=== PATIENT | male | born 1940 | race Caucasian/White ===

== ENCOUNTER 2020-03-22 12:10 | Inpatient (IN) | payer MEDICARE, SELFPAY ==
[2020-03-22] VITALS (11 sets, daily range): BP systolic 106–135; BP diastolic 55–68; PULSE 74–88; RESP 18–23; TEMP 36.4–37.4; O2SAT 96–100; BMI 33.4
--- NOTE | ~2020-03-22 | US_ITS ---
EXAMINATION: US venous doppler [facility] DATE: 03/22/2020 12:59 INDICATION: Lower limb pain. TECHNIQUE: Grayscale ultrasound images without and with compression and Doppler ultrasound images of the bilateral lower extremity veins were obtained. COMPARISON: Ultrasound 10/01/2011 FINDINGS: The visualized portions of right common femoral vein, profunda (deep) femoral vein, femoral vein, pop liteal vein, peroneal veins, posterior tibial veins, and greater saphenous vein outflow are patent. The visualized portions of left common femoral vein, profunda femoral vein, femoral vein, popliteal v ein, peroneal veins, posterior tibial veins, and greater saphenous vein outflow are patent. IMPRESSION: 1. No deep venous thrombosis. Reviewed, dictated and finalized at location A.
--- NOTE | ~2020-03-22 | XR_ITS ---
EXAMINATION: XR chest 1V DATE: 03/22/2020 12:59 INDICATION: Cough. TECHNIQUE: A single frontal view of the chest was obtained. COMPARISON: Chest 2 views 03/23/2019, chest CT 09/2017 FINDINGS: There is chronic elevation of right hemidiaphragm. No pneumonia, pleural effusion, or pneum othorax. The heart size is normal. There are changes of aortic valve replacement. IMPRESSION: 1. Chronic elevation of right hemidiaphragm. Reviewed, dictated and finalized at location A.
--- NOTE | 2020-03-22 12:15 | PC.NURSE ---
Pt given urinal and asked for urine sample, patient states that he is unable to give sample at this time.
--- NOTE | 2020-03-22 12:23 | ECG_ITS ---
Measurements Intervals [place] Rate: 84 P: 47 [place]: 166 QRS: -52 QRSD: 146 T: 13 QT: 429 QTc: 509 Interpretive Statements SINUS RHYTHM ATRIAL COUPLET AND ATRIAL PREMATURE COMPLEX RIGHT BUNDLE BRANCH BLOCK LEFT ANTERIOR FASCICULAR BLOCK BASELINE ARTIFACT- I, II, III, AVR, AVL, AVF, V1 ABNORMAL ECG Electronically Signed On 03-22-2020 13:47:24 CDT by Deny Cabezas D.O.
--- NOTE | 2020-03-22 12:24 | ED.WEAKNESS ---
HPI - Weakness General Chief complaint: Weakness Stated complaint: WEAKNESS Source: RN notes reviewed History of Present Illness HPI Narrative: Patient presents emergency department from home via EMS for weakness. Patient states that last night he was having difficulty getting up out of bed. Had that family come over and help and states that today he was unable to get out of his left ear on his own. Patient states he has a history of peripheral neuropathy with numbness from the knees down bilaterally. He states he has been having increased swelling and open wounds of the bilateral legs that have been being dressed by his home health nurse. He denies any fevers or chills chest pain shortness of breath abdominal pain nausea vomiting or any other symptoms Related Data Home Medications Medication Instructions Recorded Confirmed atorvastatin 10 mg PO DAILY 03/22/20 03/22/20 dexamethasone 2 mg PO DAILY 03/22/20 03/22/20 furosemide 60 mg PO DAILY 03/22/20 03/22/20 glimepiride 2 mg PO DAILY 03/22/20 03/22/20 hydrocodone-acetaminophen [[place]] 1 tablet PO Q6H PRN 03/22/20 03/22/20 metformin 1,000 mg PO BID 03/22/20 03/22/20 metoprolol succinate 50 mg PO QAM 03/22/20 03/22/20 mirabegron [Myrbetriq] 25 mg PO DAILY 03/22/20 03/22/20 potassium chloride 20 meq PO DAILY 03/22/20 03/22/20 tamsulosin 0.4 mg PO HS 03/22/20 03/22/20 telmisartan 80 mg PO DAILY 03/22/20 03/22/20 Allergies Allergy/AdvReac Type Severity Reaction Status Date / Time No Known Allergies Allergy Verified 03/22/20 12:21 Review of Systems Review of Systems: Narrative: Gen.: Denies fevers or chills Eyes: Denies eye pain or visual change ENT: Denies congestion Respiratory: Denies shortness of breath or cough CV: Denies chest pain or palpitations GI: Denies abdominal pain nausea, emesis or diarrhea Musculoskeletal: Denies back pain or muscle pain Neuro: Reports weakness Skin: Reports wounds on legs Except as documented, all other systems reviewed and negative PMF Past Medical History Medical History (Updated 03/22/20 @ 15:51 by Josep Rowan DO) Aortic stenosis Status post bioprosthetic aortic valve replacement. Basal cell carcinoma Excision of basal cell carcinoma from the left ala. Benign prostatic hyperplasia Chronic anemia Depression Dyslipidemia Essential hypertension Osteoarthritis Paroxysmal atrial fibrillation Peripheral neuropathy Transient ischemic attack Transverse myelitis (~01/2019) Type 2 diabetes mellitus Hemoglobin A1c was 9.3% in March 2019. Surgical History Surgical History (Updated 03/22/20 @ 15:11 by Jenny Mandujano PA-C) History of aortic valve replacement with tissue graft (~08/2017) History of appendectomy History of arthroplasty of left knee (~2010) History of cataract extraction (~2014) History of inguinal hernia repair History of lumbar fusion (~2017) History of transurethral resection of prostate (~10/2018) Status post lumbar spine surgery for decompression of spinal cord (~2014) Status post surgical removal of malignant neoplasm of skin (~03/2018) Excision of basal cell carcinoma from the left ala. Family History Family History (Updated 03/22/20 @ 15:12 by Jenny Mandujano PA-C) Sibling Diabetes mellitus Hypertension Mother Congestive heart failure COPD (chronic obstructive pulmonary disease) Social History Social History (Updated 03/22/20 @ 15:13 by Jenny Mandujano PA-C) Social History: The patient lives in [place]. He is a lifelong nonsmoker and denies alcohol and drug use. Surrogate decision maker: Code status: Alcohol intake: never Substance use: never Substance use type: does not use Spiritual care concerns: No Exam Narrative: Exam Narrative: APPEARANCE: No acute distress, nontoxic, resting in bed EYES: EOMI HEENT: Normocephalic, atraumatic, OMM RESPIRATORY: No respiratory distress Clear to auscultation bilaterally with no rhonchi wheezing or rales.
[2020-03-22 12:55] LABS: Basophils Percent Auto 0.2 % (0.2-1.2); Eosinophils Absolute Auto 0.1 K/mm3 (0-0.3); Eosinophils Percent Auto 0.9 % (0-4.4); Hematocrit 36.1 % (42.0-52.0); Hemoglobin 12.1 g/dL (14.0-18.0); Immature Granulocyte Absolute 0.05 K/mm3 (0.00-0.031); Immature Granulocyte Percent A 0.4 % (0-0.5); Lymphocytes Absolute Auto 1.27 K/mm3 (0.9-3.2); Lymphocytes Percent Auto 11.3 % (18.3-44.2); Mean Corpuscular HGB Conc 33.5 g/dl (32-36); Mean Corpuscular Hemoglobin 32.3 pg (26-34); Mean Corpuscular Volume 96.3 fl (80-100); Mean Platelet Volume 10.4 fl (7.4-10.4); Monocytes Absolute Auto 0.8 K/mm3 (0.1-0.6); Monocytes Percent Auto 6.9 % (2.6-8.5); Neutrophils Percent Auto 80.3 % (45.5-73.1); Platelet Count Result 252 k/mm3 (150-375); Red Blood Count 3.75 M/mm3 (4.6-6.20); White Blood Count 11.2 K/mm3 (4.5-10.0)
[2020-03-22 13:06] LABS: Blood Urea Nitrogen 20 mg/dL (9-20); Calcium 9.1 mg/dL (8.4-10.2); Carbon Dioxide 29 mmol/L (22-30); Chloride 102 mmol/L (98-107); Estimated CRCL calculation 74 ml/min; Estimated Glomerular Filt Rate > 60; Glucose 82 mg/dL (75-110); INR 1.1; Lactic Acid Reflex 2.1 mmol/L (0.7-2.1); Partial Thromboplastin Time 33.9 SECONDS (22.3-36.8); Potassium 3.5 mmol/L (3.4-5.0); Prothrombin Time 13.7 Seconds (11.1-14.7); Sodium 137 mmol/L (137-145)
[2020-03-22 13:21] LABS: NT Pro B Type Natriuretic Pept 2220 PG/ML (5-100)
[2020-03-22] MEDS: ASPIRIN 81 MG CHEWABLE TABLET 324 MG PO (13:57)
--- NOTE | 2020-03-22 13:58 | PC.NURSE ---
This RN asked patient for urine sample again, he states You just want me to put my penis in this and pee. This RN explained to patient again on how to use urinal and need for urine sample. Pt states Well I have clothes on and I just can't do it. This RN helped patient remove pants with help of SHAYNA Benito. Patient was wearing two depends, underwear and shorts. Depends were so saturdated, urine was running out of it and was breaking down. This RN asked patient when was the last time he had changed his depends. Pt states that it was yesterday sometime. This RN educated patient and his son on the importance of proper hygiene and frequent changing of depends. Pt's son states well he was weak yesterday and couldn't change himself like normal. This RN educated on the need for support of caregivers and how to frequently change depend and the risk of infection and skin breakdown from sitting in urine and feces for long periods of time. This RN cleaned patient up of all urine, and complete bed linen was changed and a new brief was applied. Urine sample was obtained while changing patient, he was able to urinate in collection cup.
[2020-03-22 14:08] LABS: Add Urine Microscopic? YES; Appearance Urine Cloudy (Clear); Bacteria Urine 4+ /hpf; Bilirubin Urine Negative (Negative); Blood Urine 1+ (Negative); Color Urine Yellow (Yellow); Glucose Urine UA Negative (Negative); Ketones Urine Negative (Negative); Leukocyte Esterase Ur 3+ LEU/UL (Negative); Mucus Urine Rare /lpf; Nitrate Urine Negative (Negative); Protein Urine 1+ mg/dL (Negative); Specific Grav Ur 1.012 (1.001-1.035); Squamous Epithelial Cell Urine Moderate /hpf (Few); Urobilinogen Urine Negative mg/dL (<2.0); WBC Urine >75 /hpf
--- NOTE | 2020-03-22 15:04 | PC.NURSE ---
Patient brief changed again and cleaned of urine at this time prior to patient leaving for IMU
[2020-03-22 15:42] LABS: Hemoglobin A1C 5.6 % (<5.7)
[2020-03-22 15:46] LABS: Alanine Aminotransferase 16 U/L (4-50); Albumin Level 3.6 g/dL (3.5-5.1); Alkaline Phosphatase 91 U/L (38-126); Aspartate Amino Transferase 17 U/L (17-59); Bilirubin,Total 1.4 mg/dL (0.2-1.3)
--- NOTE | 2020-03-22 15:46 | PCPTNOTE ---
Attempted to see pt this afternoon for PT evaluation. Nurse admitting pt and echo waiting. Will try again tomorrow.
[2020-03-22] MEDS: SODIUM CHLORIDE 0.9% IV 1,000 ML 100 ML IV CONT (15:50)
[2020-03-22 15:53] LABS: Reflex Lactic Acid Yes or No Add Lactic
[2020-03-22 16:06] LABS: Troponin I 0.042 ng/mL (0.000-0.034)
[2020-03-22 16:24] LABS: Lactic Acid 1.4 mmol/L (0.7-2.1)
[2020-03-22 16:54] LABS: Glucose Point of Care 51 (65-105)
[2020-03-22] MEDS: DEXTROSE 50% 25 GM/50 ML SYRINGE IV PUSH (16:59)
[2020-03-22 17:24] LABS: Glucose Point of Care 140 (65-105)
[2020-03-22 19:22] LABS: Troponin I 0.038 ng/mL (0.000-0.034)
--- NOTE | 2020-03-22 20:00 | PM.IMHP ---
H&P: HPI History of Present Illness Chief complaint: Generalized weakness. Narrative: Francisco J Sanchez is a 79-year-old male with diabetes, hypertension, hyperlipidemia, benign prostatic hyperplasia with history of urinary retention, paroxysmal atrial fibrillation, diabetes, aortic stenosis status post bioprosthetic aortic valve replacement, transverse myelitis, and peripheral neuropathy who presented to the emergency department earlier this morning via EMS from home for evaluation of generalized weakness. He has had an indwelling Fernandez catheter for approximately 6 months time, and that was removed at Dr. Paz' office yesterday. Upon returning home, it sounds as though he went to bed and he was unable to get himself up thereafter. It sounds as though his mobility has not been great for quite some time and he believes that is due in part to his history of transverse myelitis diagnosed in January 2019. He is treated by a local neurologist, and is on long-term, low-dose dexamethasone daily for that. Approximately 3 weeks ago he was ambulating minimally around the home with a walker, however he now has a Hoveround and it sounds as though he has been using that exclusively and only transfers from that to the toilet or to the bed. He does lift weights with his upper body, however his legs have become so weak and due to neuropathy he just cannot get around much anymore. He has had progressive lower extremity edema as well and now has some wounds to the legs for which a home health nurse has been coming to address. At the time my evaluation, he mentions attempting to urinate since last night and is frustrated that he is only dribbling a small amount. A bladder scan shows that he was retaining at least 450 cc of urine and a Fernandez catheter is now to be placed. He also complains of constipation which is an ongoing issue, and he has to take laxatives daily in order to have a bowel movement. His appetite has been good and he denies nausea and vomiting. He has not had fever, chills, or sweats. No cold or flu symptoms. He denies chest pain and pleuritic pain. He admits that he does not sleep well and naps frequently throughout the day, and says he when be surprised if he had sleep apnea as he does snore. He denies, however, orthopnea and PND. He has no history of venous thromboembolism. Review of Systems Review of Systems: Narrative: Twelve systems were reviewed and are unremarkable except as noted in the HPI. [facility] Past Medical History Medical History (Updated 03/22/20 @ 23:16 by Jenny Mandujano PA-C) Aortic stenosis Status post bioprosthetic aortic valve replacement. Basal cell carcinoma Excision of basal cell carcinoma from the left ala. Benign prostatic hyperplasia Chronic anemia Depression Dyslipidemia Essential hypertension Osteoarthritis Paroxysmal atrial fibrillation Peripheral neuropathy Transient ischemic attack Transverse myelitis (~01/2019) Type 2 diabetes mellitus Hemoglobin A1c was 9.3% in March 2019 and is 5.6% today, 03/22/2020. Urinary retention Followed by Dr. Paz. Surgical History Surgical History (Updated 03/22/20 @ 15:11 by Jenny Mandujano PA-C) History of aortic valve replacement with tissue graft (~08/2017) History of appendectomy History of arthroplasty of left knee (~2010) History of cataract extraction (~2014) History of inguinal hernia repair History of lumbar fusion (~2017) History of transurethral resection of prostate (~10/2018) Status post lumbar spine surgery for decompression of spinal cord (~2014) Status post surgical removal of malignant neoplasm of skin (~03/2018) Excision of basal cell carcinoma from the left ala. Family History Family History (Updated 03/22/20 @ 15:12 by Jenny Mandujano PA-C) Sibling Diabetes mellitus Hypertension Mother Congestive heart failure COPD (chronic obstructive pulmonary disease) Social History Social History (Updated 03/22/20 @ 23:07 by Jenny Ott
[2020-03-22 20:32] LABS: Glucose Point of Care 87 (65-105)
[2020-03-22] MEDS: TAMSULOSIN HCL 0.4 MG CAPSULE PO (23:20)
[2020-03-22] MEDS: MELATONIN 5 MG TABLET 10 MG PO (23:20)
--- NOTE | 2020-03-22 23:56 | PCRCNOTE ---
Unable to put patient on apnea link tonight (03/22) due to patient agitation per RN. Test to be attempted tomorrow night (03/23)
[2020-03-23] VITALS (15 sets, daily range): BP systolic 96–132; BP diastolic 51–73; PULSE 72–119; RESP 16–22; TEMP 36.1–37.3; O2SAT 96–100
--- NOTE | 2020-03-23 | ECHO_ITS ---
Patient Info Name: Francisco J Sanchez Age: 79 years : 1940 Gender: Male Ht: 72 in Wt: 270 lbs BSA: 2.54 m2 HR: 86 bpm BP: 125 / 66 mmHg Heart Rhythm: Sinus Rhythm Technical Quality: Good Exam Date: 03/23/2020 9:58 AM Exam Location: [facility] Pulmonary Exam Room: 204 Patient Status: Inpatient Admit Date: 03/22/2020 Staff Ordering Physician: Jenny Mandujano PA-C Software Client Architect: Jessenia Aguilar RDCS Attending Provider: Benny Michel MD Referring Physician: Delbert ANDERSON; Exam Type: CA echo doppler color flow Study Info Indications - HXO S/P AVR AFIB TIA Complete two-dimensional, color flow and Doppler transthoracic echocardiogram is performed. Summary 1. Left ventricular systolic function is hyperdynamic, estimated at >70%. 2. There is moderately increased left ventricular wall thickness. 3. Left ventricular septal wall motion is abnormal with septal motion related to bundle branch block. 4. The left ventricular diastolic function is grade I diastolic dysfunction. 5. There is mild mitral valve regurgitation. 6. There is trace tricuspid valve regurgitation. 7. No pulmonary hypertension, estimated pulmonary arterial systolic pressure is 33 mmHg. Left Ventricle Left ventricular chamber dimension is normal. Left ventricular systolic function is hyperdynamic, estimated at >70%. There is moderately increased left ventricular wall thickness. Left ventricular septal wall motion is abnormal with septal motion related to bundle branch block. The left ventricular diastolic function is grade I diastolic dysfunction. Right Ventricle Right ventricular chamber dimension is normal. Right ventricular systolic function is normal. Left Atria Left atrial chamber dimension is moderately enlarged. Right Atria Right atrial chamber dimension is moderately enlarged. Aortic Valve The prosthetic aortic valve is normal. There is no prosthetic aortic valve stenosis. There is trace regurgitation of the prosthetic aortic valve. Pulmonic Valve The pulmonic valve is not well visualized. Mitral Valve The mitral valve has thickened leaflets. There is mild mitral valve regurgitation. The mitral valve annulus is moderately calcified. Tricuspid Valve The tricuspid valve leaflets are normal. There is trace tricuspid valve regurgitation. No pulmonary hypertension, estimated pulmonary arterial systolic pressure is 33 mmHg. Pericardium/Pleural The pericardium appears not well visualized. There is no pericardial effusion. Inferior Vena Cava Inferior vena cava is not well visualized. Aorta The aortic root size at the sinus of Valsalva is normal. Left Ventricular Outflow Tract Name Value Normal LVOT 2D LVOT Diameter 2.1 cm LVOT Doppler LVOT Peak Velocity 120 cm/s LVOT Peak Gradient 6 mmHg LVOT Mean Gradient 3 mmHg LVOT VTI 22 cm LVOT VTI/AV VTI Ratio 0.6 LVOT Stroke Volume 80 ml LVOT CO
[2020-03-23 05:05] LABS: Basophils Percent Auto 0.1 % (0.2-1.2); Eosinophils Absolute Auto 0.1 K/mm3 (0-0.3); Immature Granulocyte Absolute 0.04 K/mm3 (0.00-0.031); Immature Granulocyte Percent A 0.4 % (0-0.5); Lymphocytes Absolute Auto 0.97 K/mm3 (0.9-3.2); Lymphocytes Percent Auto 9.2 % (18.3-44.2); Mean Corpuscular HGB Conc 34.4 g/dl (32-36); Mean Corpuscular Hemoglobin 32.3 pg (26-34); Mean Corpuscular Volume 93.8 fl (80-100); Mean Platelet Volume 10.2 fl (7.4-10.4); Monocytes Absolute Auto 0.9 K/mm3 (0.1-0.6); Monocytes Percent Auto 8.2 % (2.6-8.5); Neutrophils Absolute Auto 8.6 K/mm3 (1.3-6.7); Neutrophils Percent Auto 81.1 % (45.5-73.1); Platelet Count Result 213 k/mm3 (150-375); Red Blood Count 3.41 M/mm3 (4.6-6.20); Red Cell Distribution Width 14.5 % (11.5-14.5); White Blood Count 10.6 K/mm3 (4.5-10.0)
[2020-03-23 05:26] LABS: Magnesium 1.7 mg/dL (1.6-2.3)
[2020-03-23 05:29] LABS: Blood Urea Nitrogen 17 mg/dL (9-20); Calcium 8.5 mg/dL (8.4-10.2); Carbon Dioxide 28 mmol/L (22-30); Chloride 102 mmol/L (98-107); Estimated CRCL calculation 81 ml/min; Estimated Glomerular Filt Rate > 60; Glucose 82 mg/dL (75-110); Potassium 3.2 mmol/L (3.4-5.0); Sodium 136 mmol/L (137-145)
--- NOTE | 2020-03-23 07:27 | WPDURCON ---
Assessment and Plan Assessment and plan (1) BPH loc w urin obs/LUTS: Code(s): N40.1 - Benign prostatic hyperplasia with lower urinary tract symptoms Status: Acute (2) Generalized weakness: Code(s): R53.1 - Weakness Status: Acute (3) Transverse myelitis: Onset Date: ~01/2019 Code(s): G37.3 - Acute transverse myelitis in demyelinating disease of central nervous system Status: Acute (4) Neurogenic bladder: Code(s): N31.9 - Neuromuscular dysfunction of bladder, unspecified Status: Acute Assessment and Plan: Combination of BPH and neurogenic bladder rigid as a result of transverse myelitis represents a difficult urological problem. I have explained to the patient that he likely will not be able to void normally, without either high risk of urinary retention or urgency and urge incontinence. Best option at this point, we both agree, is probably to commit to an indwelling catheter until sometime when his transverse myelitis improved. Urology Consult Note HPI Date Seen: 03/23/20 Requesting Physician: Benny Michel MD Primary Care Provider: Nirav Villalobos, Consult Narrative Narrative: Francisco J Sanchez is a 79 year old male who is very well known to our practice. He has longstanding underlying BPH which has been complicated recently by the development of a neurogenic bladder as a result of his transverse myelitis. Occasional voiding trials he has vacillated between episodes of urinary retention and marked urgency and urge incontinence. The past several months, when given a voiding trial, he develops intractable urinary incontinence and within several days generally request the catheter be replaced. Last week he again requested a voiding trial within hours had developed recurrence urge incontinence. Denies dysuria or hematuria in the past several weeks. He is admitted now with generalized weakness and a possible urinary tract infection Review of Systems Constitutional: Constitutional: Reports fatigue Cardiovascular: Cardiovascular: Denies chest pain, Denies lightheadedness, Denies palpitations and Denies dyspnea Respiratory: Respiratory: Denies dyspnea Gastrointestinal: Gastrointestinal: Denies diarrhea, Denies nausea and Denies vomiting Genitourinary: Genitourinary: Denies hematuria, Denies dysuria and Reports urinary incontinence Endocrine: Endocrine: Denies palpitations PMFSH Past Medical History Medical History Aortic stenosis Status post bioprosthetic aortic valve replacement. Basal cell carcinoma Excision of basal cell carcinoma from the left ala. Benign prostatic hyperplasia Chronic anemia Depression Dyslipidemia Essential hypertension Osteoarthritis Paroxysmal atrial fibrillation Peripheral neuropathy Transient ischemic attack Transverse myelitis (~01/2019) Type 2 diabetes mellitus Hemoglobin A1c was 9.3% in March 2019 and is 5.6% today, 03/22/2020. Urinary retention Followed by Dr. Paz. Surgical History Surgical History History of aortic valve replacement with tissue graft (~08/2017) History of appendectomy History of arthroplasty of left knee (~2010) History of cataract extraction (~2014) History of inguinal hernia repair History of lumbar fusion (~2017) History of transurethral resection of prostate (~10/2018) Status post lumbar spine surgery for decompression of spinal cord (~2014) Status post surgical removal of malignant neoplasm of skin (~03/2018) Excision of basal cell carcinoma from the left ala. Family History Family History Sibling Diabetes mellitus Hypertension Mother Congestive heart failure COPD (chronic obstructive pulmonary disease) Social History Social History Social History:
[2020-03-23 07:41] LABS: Glucose Point of Care 79 (65-105)
[2020-03-23] MEDS: ATORVASTATIN 10 MG TABLET PO (09:24)
[2020-03-23] MEDS: ENOXAPARIN 40 MG/0.4 ML SYRINGE SUB-Q (09:24)
[2020-03-23] MEDS: MIRABEGRON 25 MG ER TABLET PO (09:24)
[2020-03-23] MEDS: DEXAMETHASONE 2 MG TABLET 6 MG PO (09:24)
[2020-03-23] MEDS: METOPROLOL SUCCINATE EXT REL 50 MG TABCR PO (09:25)
[2020-03-23] MEDS: FUROSEMIDE 20 MG TABLET 60 MG PO (09:25)
[2020-03-23] MEDS: POTASSIUM CHLORIDE 20 MEQ PACKET (FOR LIQUID) PO (09:25)
[2020-03-23] MEDS: polyethylene glycoL 3350 17 GM POWD.PACK PO (09:29)
[2020-03-23] MEDS: POTASSIUM CHLORIDE 20 MEQ TABLET 40 MEQ PO (09:29)
[2020-03-23] MEDS: TELMISARTAN 40 MG TABLET 80 MG PO (09:29)
[2020-03-23] MEDS: COLLAGENASE OINT 30 GM TUBE 1 APPLIC TOPICAL (11:37)
[2020-03-23 13:10] LABS: Glucose Point of Care 131 (65-105)
--- NOTE | 2020-03-23 16:17 | P.PNIM_ITS ---
Progress Note: A&P Assessment and Plan (1) Urinary tract infection: Code(s): N39.0 - Urinary tract infection, site not specified Status: Acute Assessment and Plan: * He was started on imipenem in conjunction with vancomycin for presumed cellulitis of the lower legs no probably Ultmann a simple stasis dermatitis with ulceration * Imipenem should cover most any pathogen, urine culture growing greater than 100,000 gram-negative dorie. (2) Wound of lower extremity: Code(s): S81.809A - Unspecified open wound, unspecified lower leg, initial encounter Status: Acute Assessment and Plan: * It looks like the patient has some chronic skin changes due to edema as well as superficial ulcerations. * Empiric imipenem and vancomycin for possible underlying cellulitis. * Wound nurse agrees that mostly chronic and not acutely infected (3) Elevated troponin: Code(s): R79.89 - Other specified abnormal findings of blood chemistry Status: Acute Assessment and Plan: * Troponins are flat and are not indicative of acute coronary syndrome. * He is having no chest pain whatsoever. * Echocardiogram has been ordered, however given his significant edema. And to check for any wall motion abnormalities * Will check apnea link as well given suspicions for such. (4) Generalized weakness: Code(s): R53.1 - Weakness Status: Acute Assessment and Plan: * He has become gradually more weak over the past year at least, and it may very well be related to history of transverse myelitis. * Fall precautions will be initiated and he is to get up only with assistance. PT/OT consulted. * Since he had missed a few doses of dexamethasone will increase initially and try to contact his neurologist her any further suggestions about possibly even reimaging (5) Type 2 diabetes mellitus: Code(s): E11.9 - Type 2 diabetes mellitus without complications Status: Acute Assessment and Plan: * hold his glimepiride and metformin as his a random glucose was well within normal limits and hemoglobin A1c today was 5.6%. * Initiate sliding scale insulin, Accu-Cheks, and hypoglycemic protocol. (6) Essential hypertension: Code(s): I10 - Essential (primary) hypertension Status: Acute Assessment and Plan: * Blood pressures were reviewed and they are well controlled. * Continue ARB and beta-rm and monitor daily. (7) Chronic anemia: Code(s): D64.9 - Anemia, unspecified Status: Acute Assessment and Plan: * Hemoglobin and hematocrit are stable on review of previous labs. (8) Urinary retention: Code(s): R33.9 - Retention of urine, unspecified Status: Acute Assessment and Plan: * He is followed by Dr. Paz and in fact had his Fernandez catheter removed 03/21. * Probable neurogenic bladder as he did have a TURP in October 2018. * Urology has decided on chronic Fernandez. (9) Transverse myelitis: Onset Date: ~01/2019 Code(s): G37.3 - Acute transverse myelitis in demyelinating disease of central nervous system Status: Acu
--- NOTE | 2020-03-23 16:17 | PM.IMPN ---
Progress Note: A&P Assessment and Plan (1) Urinary tract infection: Code(s): N39.0 - Urinary tract infection, site not specified Status: Acute Assessment and Plan: He was started on imipenem in conjunction with vancomycin for presumed cellulitis of the lower legs no probably [place] a simple stasis dermatitis with ulceration Imipenem should cover most any pathogen, urine culture growing greater than 100,000 gram-negative dorie. (2) Wound of lower extremity: Code(s): S81.809A - Unspecified open wound, unspecified lower leg, initial encounter Status: Acute Assessment and Plan: It looks like the patient has some chronic skin changes due to edema as well as superficial ulcerations. Empiric imipenem and vancomycin for possible underlying cellulitis. Wound nurse agrees that mostly chronic and not acutely infected (3) Elevated troponin: Code(s): R79.89 - Other specified abnormal findings of blood chemistry Status: Acute Assessment and Plan: Troponins are flat and are not indicative of acute coronary syndrome. He is having no chest pain whatsoever. Echocardiogram has been ordered, however given his significant edema. And to check for any wall motion abnormalities Will check apnea link as well given suspicions for such. (4) Generalized weakness: Code(s): R53.1 - Weakness Status: Acute Assessment and Plan: He has become gradually more weak over the past year at least, and it may very well be related to history of transverse myelitis. Fall precautions will be initiated and he is to get up only with assistance. PT/OT consulted. Since he had missed a few doses of dexamethasone will increase initially and try to contact his neurologist her any further suggestions about possibly even reimaging (5) Type 2 diabetes mellitus: Code(s): E11.9 - Type 2 diabetes mellitus without complications Status: Acute Assessment and Plan: hold his glimepiride and metformin as his a random glucose was well within normal limits and hemoglobin A1c today was 5.6%. Initiate sliding scale insulin, Accu-Cheks, and hypoglycemic protocol. (6) Essential hypertension: Code(s): I10 - Essential (primary) hypertension Status: Acute Assessment and Plan: Blood pressures were reviewed and they are well controlled. Continue ARB and beta-rm and monitor daily. (7) Chronic anemia: Code(s): D64.9 - Anemia, unspecified Status: Acute Assessment and Plan: Hemoglobin and hematocrit are stable on review of previous labs. (8) Urinary retention: Code(s): R33.9 - Retention of urine, unspecified Status: Acute Assessment and Plan: He is followed by Dr. Paz and in fact had his Fernandez catheter removed 03/21. Probable neurogenic bladder as he did have a TURP in October 2018. Urology has decided on chronic Fernandez. 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 Increase dexamethasone to 6 milligrams daily. Given progressive weakness, although not acute, would be prudent to have Neurology assess him, so as above will try to make contact with his neurologist. (10) DVT prophylaxis: Code(s): Z29.9 - Encounter for prophylactic measures
[2020-03-23 16:59] LABS: Glucose Point of Care 204 (65-105)
[2020-03-23] MEDS: INSULIN ASPART (*BKC) 100 UNITS/ML SUB-Q (17:42)
--- NOTE | 2020-03-23 18:15 | PC.NURSE ---
This patient, Francisco J Sanchez, was received from [facility] on 03/23/20 at 1915. Personal belongings list checked and signed. Patient/family oriented to unit policies and routines
--- NOTE | 2020-03-23 18:15 | PC.NURSE ---
Patient [place] transferred [place] 247 [place] [id number] accompanied by RN. Report given to Nacho CORRAL
[2020-03-23] MEDS: TAMSULOSIN HCL 0.4 MG CAPSULE PO (20:14)
[2020-03-23] MEDS: MELATONIN 5 MG TABLET 10 MG PO (20:14)
[2020-03-23 20:48] LABS: Glucose Point of Care 323 (65-105)
[2020-03-24] VITALS (7 sets, daily range): BP systolic 104–134; BP diastolic 55–77; PULSE 65–77; RESP 18–21; TEMP 36.4–36.6; O2SAT 97–100; BMI 33.8
--- NOTE | 2020-03-24 05:22 | PCRCNOTE ---
patient refused the apnea link study; The RN was notified
[2020-03-24 06:01] LABS: Blood Urea Nitrogen 19 mg/dL (9-20); Calcium 8.5 mg/dL (8.4-10.2); Carbon Dioxide 30 mmol/L (22-30); Chloride 103 mmol/L (98-107); Estimated CRCL calculation 90 ml/min; Estimated Glomerular Filt Rate > 60; Glucose 211 mg/dL (75-110); Potassium 3.7 mmol/L (3.4-5.0); Sodium 137 mmol/L (137-145)
[2020-03-24 08:04] LABS: Glucose Point of Care 183 (65-105)
[2020-03-24] MEDS: ATORVASTATIN 10 MG TABLET PO (08:38)
[2020-03-24] MEDS: FUROSEMIDE 20 MG TABLET 60 MG PO (08:39)
[2020-03-24] MEDS: POTASSIUM CHLORIDE 20 MEQ PACKET (FOR LIQUID) PO (08:39)
[2020-03-24] MEDS: polyethylene glycoL 3350 17 GM POWD.PACK PO (08:39)
[2020-03-24] MEDS: MIRABEGRON 25 MG ER TABLET PO (08:39)
[2020-03-24] MEDS: TELMISARTAN 40 MG TABLET 80 MG PO (08:39)
[2020-03-24] MEDS: ENOXAPARIN 40 MG/0.4 ML SYRINGE SUB-Q (08:40)
[2020-03-24] MEDS: METOPROLOL SUCCINATE EXT REL 50 MG TABCR PO (08:41)
[2020-03-24] MEDS: COLLAGENASE OINT 30 GM TUBE 1 APPLIC TOPICAL (08:42)
--- NOTE | 2020-03-24 08:55 | PC.NURSE ---
Called pharmacy and requested 0900 dose of Dexamethasone be sent to floor for administration.
[2020-03-24] MEDS: DEXAMETHASONE 2 MG TABLET 6 MG PO (10:40)
[2020-03-24 11:57] LABS: Glucose Point of Care 188 (65-105)
--- NOTE | 2020-03-24 13:52 | P.PNIM_ITS ---
Progress Note: A&P Assessment and Plan (1) Urinary tract infection: Code(s): N39.0 - Urinary tract infection, site not specified Status: Acute Assessment and Plan: * He was started on imipenem in conjunction with vancomycin for presumed cellulitis of the lower legs though probably is simple stasis dermatitis with ulceration. Wound care agrees and will madhu antibiotics to UTI * urine culture growing greater than 100,000 gram-negative dorie., klesiella S to all on panel but ampicillin and macrodantin * will switch to ceftriaxone daily (2) Wound of lower extremity: Code(s): S81.809A - Unspecified open wound, unspecified lower leg, initial encounter Status: Acute Assessment and Plan: * It looks like the patient has some chronic skin changes due to edema as well as superficial ulcerations.. * Wound nurse agrees that mostly chronic and not acutely infected so will stop broad spectrum antibiotics (3) Elevated troponin: Code(s): R79.89 - Other specified abnormal findings of blood chemistry Status: Acute Assessment and Plan: * Troponins are flat and are not indicative of acute coronary syndrome. * He is having no chest pain whatsoever. 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 (4) Generalized weakness: Code(s): R53.1 - Weakness Status: Acute Assessment and Plan: * He has become gradually more weak over the past year at least, and it may very well be related to history of transverse myelitis. * Fall precautions initiated and he is to get up only with assistance. PT/OT seeing. * Since he had missed a few doses of dexamethasone increased initially . * Tried to contact his neurologist but unable to do so. wrong # and not on Neurology staff at [place] (5) Type 2 diabetes mellitus: Code(s): E11.9 - Type 2 diabetes mellitus without complications Status: Acute Assessment and Plan: * holding his glimepiride and metformin as his a random glucose was well within normal limits and hemoglobin A1c was 5.6%. * Initiate sliding scale insulin, Accu-Cheks, and hypoglycemic protocol. (6) Essential hypertension: Code(s): I10 - Essential (primary) hypertension Status: Acute Assessment and Plan: * Blood pressures were reviewed and they are well controlled. * Continue ARB and beta-rm and monitor daily. (7) Chronic anemia: Code(s): D64.9 - Anemia, unspecified Status: Acute Assessment and Plan: * Hemoglobin and hematocrit are stable on review of previous labs. (8) Urinary retention: Code(s): R33.9 - Retention of urine, unspecified Status: Acute Assessment and Plan: * He is followed by Dr. Paz and in fact had his Fernandez catheter removed 03/21. * Probable neurogenic bladder as he did have a TURP in October 2018. * Urology has decided on chronic Fernandez. 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
--- NOTE | 2020-03-24 13:52 | PM.IMPN ---
Progress Note: A&P Assessment and Plan (1) Urinary tract infection: Code(s): N39.0 - Urinary tract infection, site not specified Status: Acute Assessment and Plan: He was started on imipenem in conjunction with vancomycin for presumed cellulitis of the lower legs though probably is simple stasis dermatitis with ulceration. Wound care agrees and will madhu antibiotics to UTI urine culture growing greater than 100,000 gram-negative dorie., klesiella S to all on panel but ampicillin and macrodantin will switch to ceftriaxone daily (2) Wound of lower extremity: Code(s): S81.809A - Unspecified open wound, unspecified lower leg, initial encounter Status: Acute Assessment and Plan: It looks like the patient has some chronic skin changes due to edema as well as superficial ulcerations.. Wound nurse agrees that mostly chronic and not acutely infected so will stop broad spectrum antibiotics (3) Elevated troponin: Code(s): R79.89 - Other specified abnormal findings of blood chemistry Status: Acute Assessment and Plan: Troponins are flat and are not indicative of acute coronary syndrome. He is having no chest pain whatsoever. 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 (4) Generalized weakness: Code(s): R53.1 - Weakness Status: Acute Assessment and Plan: He has become gradually more weak over the past year at least, and it may very well be related to history of transverse myelitis. Fall precautions initiated and he is to get up only with assistance. PT/OT seeing. Since he had missed a few doses of dexamethasone increased initially . Tried to contact his neurologist but unable to do so. wrong # and not on Neurology staff at [place] (5) Type 2 diabetes mellitus: Code(s): E11.9 - Type 2 diabetes mellitus without complications Status: Acute Assessment and Plan: holding his glimepiride and metformin as his a random glucose was well within normal limits and hemoglobin A1c was 5.6%. Initiate sliding scale insulin, Accu-Cheks, and hypoglycemic protocol. (6) Essential hypertension: Code(s): I10 - Essential (primary) hypertension Status: Acute Assessment and Plan: Blood pressures were reviewed and they are well controlled. Continue ARB and beta-rm and monitor daily. (7) Chronic anemia: Code(s): D64.9 - Anemia, unspecified Status: Acute Assessment and Plan: Hemoglobin and hematocrit are stable on review of previous labs. (8) Urinary retention: Code(s): R33.9 - Retention of urine, unspecified Status: Acute Assessment and Plan: He is followed by Dr. Paz and in fact had his Fernandez catheter removed 03/21. Probable neurogenic bladder as he did have a TURP in October 2018. Urology has decided on chronic Fernandez. 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 Increase dexamethasone to 6 milligrams daily. Given progressive weakness, although not acute, will need to follow up with his neurologist after d/c, he has already improved with rx of UTI and increased steroids. (10) DVT prophylaxis: Code(s): Z29.9 - Encounter for
[2020-03-24 16:41] LABS: Glucose Point of Care 406 (65-105)
[2020-03-24] MEDS: INSULIN ASPART (*BKC) 100 UNITS/ML 20 UNITS SUB-Q (17:18)
[2020-03-24] MEDS: TAMSULOSIN HCL 0.4 MG CAPSULE PO (20:12)
[2020-03-24] MEDS: MELATONIN 5 MG TABLET 10 MG PO (20:12)
[2020-03-24] MEDS: INSULIN ASPART (*BKC) 100 UNITS/ML 6 UNITS SUB-Q (20:13)
[2020-03-24 20:59] LABS: Glucose Point of Care 450 (65-105)
[2020-03-24] MEDS: INSULIN ASPART (*BKC) 100 UNITS/ML 10 UNITS SUB-Q (23:56)
[2020-03-25] VITALS (7 sets, daily range): BP systolic 137–146; BP diastolic 61–91; PULSE 53–73; RESP 16–20; TEMP 36.1–37.2; O2SAT 97–100
[2020-03-25 00:07] LABS: Glucose Point of Care 341 (65-105)
[2020-03-25 05:50] LABS: Glucose Point of Care 185 (65-105)
[2020-03-25 07:56] LABS: Glucose Point of Care 151 (65-105)
[2020-03-25] MEDS: FUROSEMIDE 20 MG TABLET 60 MG PO (08:47)
[2020-03-25] MEDS: polyethylene glycoL 3350 17 GM POWD.PACK PO (08:47)
[2020-03-25] MEDS: POTASSIUM CHLORIDE 20 MEQ PACKET (FOR LIQUID) PO (08:47)
[2020-03-25] MEDS: COLLAGENASE OINT 30 GM TUBE 1 APPLIC TOPICAL (08:47)
[2020-03-25] MEDS: MIRABEGRON 25 MG ER TABLET PO (08:47)
[2020-03-25] MEDS: METOPROLOL SUCCINATE EXT REL 50 MG TABCR PO (08:48)
[2020-03-25] MEDS: ATORVASTATIN 10 MG TABLET PO (08:48)
[2020-03-25] MEDS: DEXAMETHASONE 2 MG TABLET 6 MG PO (08:48)
[2020-03-25] MEDS: TELMISARTAN 40 MG TABLET 80 MG PO (08:48)
[2020-03-25] MEDS: ENOXAPARIN 40 MG/0.4 ML SYRINGE SUB-Q (08:48)
--- NOTE | 2020-03-25 11:49 | P.PNIM_ITS ---
Progress Note: A&P Assessment and Plan (1) Urinary tract infection: Code(s): N39.0 - Urinary tract infection, site not specified Status: Acute Assessment and Plan: * He was started on imipenem in conjunction with vancomycin for presumed cellulitis of the lower legs though probably is simple stasis dermatitis with ulceration. Wound care agrees and taylored antibiotics to UTI * urine culture growing greater than 100,000 gram-negative dorie., klesiella S to all on panel but ampicillin and macrodantin * switched to ceftriaxone daily 03/25(D#4 IV antibiotics total) (2) Wound of lower extremity: Code(s): S81.809A - Unspecified open wound, unspecified lower leg, initial encounter Status: Acute Assessment and Plan: * It looks like the patient has some chronic skin changes due to edema as well as superficial ulcerations.. * Wound nurse agrees that mostly chronic and not acutely infected so stopped broad spectrum antibiotics (3) Elevated troponin: Code(s): R79.89 - Other specified abnormal findings of blood chemistry Status: Acute Assessment and Plan: * Troponins are flat and are not indicative of acute coronary syndrome. * He is having no chest pain whatsoever. 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 (4) Generalized weakness: Code(s): R53.1 - Weakness Status: Acute Assessment and Plan: * He has become gradually more weak over the past year at least, and it may very well be related to history of transverse myelitis. * Fall precautions initiated and he is to get up only with assistance. PT/OT seeing. * Since he had missed a few doses of dexamethasone increased initially . * Tried to contact his neurologist but unable to do so. wrong # and not on Neurology staff at [place] (5) Type 2 diabetes mellitus: Code(s): E11.9 - Type 2 diabetes mellitus without complications Status: Acute Assessment and Plan: * holding his glimepiride and metformin as his a random glucose was well within normal limits and hemoglobin A1c was 5.6%. * Initiated sliding scale insulin, Accu-Cheks, and hypoglycemic protocol. (6) Essential hypertension: Code(s): I10 - Essential (primary) hypertension Status: Acute Assessment and Plan: * Blood pressures were reviewed and they are well controlled. * Continue ARB and beta-rm and monitor daily. (7) Chronic anemia: Code(s): D64.9 - Anemia, unspecified Status: Acute Assessment and Plan: * Hemoglobin and hematocrit are stable on review of previous labs. (8) Urinary retention: Code(s): R33.9 - Retention of urine, unspecified Status: Acute Assessment and Plan: * He is followed by Dr. Paz and in fact had his Fernandez catheter removed 03/21. * Probable neurogenic bladder as he did have a TURP in October 2018. * Urology has decided on chronic Fernandez. (9) Transverse myelitis: Onset Date: ~01/2019 Code(s): G37.3 - Acute transverse myelitis in demyelinating disease of central nervous
--- NOTE | 2020-03-25 11:49 | PM.IMPN ---
Progress Note: A&P Assessment and Plan (1) Urinary tract infection: Code(s): N39.0 - Urinary tract infection, site not specified Status: Acute Assessment and Plan: He was started on imipenem in conjunction with vancomycin for presumed cellulitis of the lower legs though probably is simple stasis dermatitis with ulceration. Wound care agrees and taylored antibiotics to UTI urine culture growing greater than 100,000 gram-negative dorie., klesiella S to all on panel but ampicillin and macrodantin switched to ceftriaxone daily 03/25(D#4 IV antibiotics total) (2) Wound of lower extremity: Code(s): S81.809A - Unspecified open wound, unspecified lower leg, initial encounter Status: Acute Assessment and Plan: It looks like the patient has some chronic skin changes due to edema as well as superficial ulcerations.. Wound nurse agrees that mostly chronic and not acutely infected so stopped broad spectrum antibiotics (3) Elevated troponin: Code(s): R79.89 - Other specified abnormal findings of blood chemistry Status: Acute Assessment and Plan: Troponins are flat and are not indicative of acute coronary syndrome. He is having no chest pain whatsoever. 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 (4) Generalized weakness: Code(s): R53.1 - Weakness Status: Acute Assessment and Plan: He has become gradually more weak over the past year at least, and it may very well be related to history of transverse myelitis. Fall precautions initiated and he is to get up only with assistance. PT/OT seeing. Since he had missed a few doses of dexamethasone increased initially . Tried to contact his neurologist but unable to do so. wrong # and not on Neurology staff at [place] (5) Type 2 diabetes mellitus: Code(s): E11.9 - Type 2 diabetes mellitus without complications Status: Acute Assessment and Plan: holding his glimepiride and metformin as his a random glucose was well within normal limits and hemoglobin A1c was 5.6%. Initiated sliding scale insulin, Accu-Cheks, and hypoglycemic protocol. (6) Essential hypertension: Code(s): I10 - Essential (primary) hypertension Status: Acute Assessment and Plan: Blood pressures were reviewed and they are well controlled. Continue ARB and beta-rm and monitor daily. (7) Chronic anemia: Code(s): D64.9 - Anemia, unspecified Status: Acute Assessment and Plan: Hemoglobin and hematocrit are stable on review of previous labs. (8) Urinary retention: Code(s): R33.9 - Retention of urine, unspecified Status: Acute Assessment and Plan: He is followed by Dr. Paz and in fact had his Fernandez catheter removed 03/21. Probable neurogenic bladder as he did have a TURP in October 2018. Urology has decided on chronic Fernandez. 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 Increased dexamethasone to 6 milligrams daily. Given progressive weakness, although not acute, will need to follow up with his neurologist after d/c, he has already improved with rx of UTI and increased steroids. (10) DVT prophylaxis: Code
[2020-03-25 13:36] LABS: Glucose Point of Care 233 (65-105)
[2020-03-25] MEDS: INSULIN ASPART (*BKC) 100 UNITS/ML SUB-Q ×2 (13:42→16:29)
--- NOTE | 2020-03-25 15:05 | PCOTNOTE ---
Patient declined treatment this date stating My arms are pretty strong already
[2020-03-25 17:02] LABS: Glucose Point of Care 314 (65-105)
[2020-03-25] MEDS: TAMSULOSIN HCL 0.4 MG CAPSULE PO (20:59)
[2020-03-25] MEDS: MELATONIN 5 MG TABLET 10 MG PO (21:03)
[2020-03-25 21:09] LABS: Glucose Point of Care 352 (65-105)
[2020-03-26 02:00] VITALS: BP 154/79; PULSE 56; RESP 21; TEMP 36.8; O2SAT 100
[2020-03-26 06:00] VITALS: BP 128/65; PULSE 58; RESP 20; TEMP 36.9; O2SAT 99
[2020-03-26 07:59] LABS: Glucose Point of Care 136 (65-105)
[2020-03-26] MEDS: ENOXAPARIN 40 MG/0.4 ML SYRINGE SUB-Q (08:22)
[2020-03-26] MEDS: MIRABEGRON 25 MG ER TABLET PO (08:22)
[2020-03-26] MEDS: POTASSIUM CHLORIDE 20 MEQ PACKET (FOR LIQUID) PO (08:22)
[2020-03-26] MEDS: COLLAGENASE OINT 30 GM TUBE 1 APPLIC TOPICAL (08:22)
[2020-03-26] MEDS: ATORVASTATIN 10 MG TABLET PO (08:22)
[2020-03-26 08:23] VITALS: PULSE 64
[2020-03-26] MEDS: METOPROLOL SUCCINATE EXT REL 50 MG TABCR PO (08:23)
[2020-03-26] MEDS: DEXAMETHASONE 4 MG TABLET PO (08:23)
[2020-03-26] MEDS: FUROSEMIDE 20 MG TABLET 60 MG PO (08:23)
[2020-03-26] MEDS: TELMISARTAN 40 MG TABLET 80 MG PO (08:25)
[2020-03-26] MEDS: polyethylene glycoL 3350 17 GM POWD.PACK PO (08:38)
[2020-03-26 10:00] VITALS: BP 148/88; PULSE 58; RESP 16; TEMP 36.6; O2SAT 98
[2020-03-26 11:31] LABS: Glucose Point of Care 165 (65-105)
--- NOTE | 2020-03-26 12:00 | PC.NURSE ---
Called to give report to nurse at [facility]. They said that the nurse was not available and she would call me back once she was ready for report.
[2020-03-26 14:00] VITALS: BP 136/68; PULSE 70; RESP 18; TEMP 36.8; O2SAT 98
--- NOTE | 2020-03-26 14:45 | PC.NURSE ---
Called [facility] again to give report after I had not received a call back from the nurse taking the patient. The nurse understood the directions from report and had no further questions. However, she requested that we have the patient wait until 4:30 or 5 pm to be be transferred because the room was not ready and she was unaware that she was receiving a patient.
[2020-03-26 16:36] LABS: Glucose Point of Care 252 (65-105)
[2020-03-26] MEDS: INSULIN ASPART (*BKC) 100 UNITS/ML SUB-Q (16:40)
--- NOTE | 2020-03-26 17:54 | P.DS_ITS ---
DS: Admitting Diagnosis Admitting Diagnosis Admitting Diagnosis: Urinary tract infection, site not specified DS: Discharge Diagnosis Discharge Diagnosis (1) Urinary tract infection: Code(s): N39.0 - Urinary tract infection, site not specified Status: Acute Assessment and Plan: * He was started on imipenem in conjunction with vancomycin for presumed cellulitis of the lower legs though probably is simple stasis dermatitis with ulceration. Wound care agrees and taylored antibiotics to UTI * urine culture grew greater than 100,000 , klesiella Sen to all on panel but ampicillin and macrodantin * switched to ceftriaxone daily 03/25(D#5 IV antibiotics total) and will complete ten-day course of antibiotics since he was indwelling Fernandez with Cipro 500 b.i.d. (2) Wound of lower extremity: Code(s): S81.809A - Unspecified open wound, unspecified lower leg, initial encounter Status: Acute Assessment and Plan: * It looks like the patient has some chronic skin changes due to edema as well as superficial ulcerations.. * Wound nurse agrees that mostly chronic and not acutely infected so stopped broad spectrum antibiotics and continue local care (3) Elevated troponin: Code(s): R79.89 - Other specified abnormal findings of blood chemistry Status: Acute Assessment and Plan: * Troponins are flat and are not indicative of acute coronary syndrome. * He is having no chest pain whatsoever. 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 (4) Generalized weakness: Code(s): R53.1 - Weakness Status: Acute Assessment and Plan: * He has become gradually more weak over the past year at least, and it may very well be related to history of transverse myelitis. * PT/OT treated while here and will continue at rehab * Since he had missed a few doses of dexamethasone increased initially here and return to usual 2 mg dose on discharge. * Tried to contact his neurologist but unable to do so. wrong # and not on Neurology staff at [place] (5) Type 2 diabetes mellitus: Code(s): E11.9 - Type 2 diabetes mellitus without complications Status: Acute Assessment and Plan: * held his glimepiride and metformin as his a random glucose was well within normal limits and hemoglobin A1c was 5.6%. * Initiated sliding scale insulin, while here and will resume metformin and glimepiride on discharge. (6) Essential hypertension: Code(s): I10 - Essential (primary) hypertension Status: Acute Assessment and Plan: * Blood pressures were reviewed and they are well controlled. * Continue ARB and beta-rm . (7) Chronic anemia: Code(s): D64.9 - Anemia, unspecified Status: Acute Assessment and Plan: * Hemoglobin and hematocrit are stable on review of previous labs. (8) Urinary retention: Code(s): R33.9 - Retention of urine, unspecified Status: Acute Assessment and Plan: * He is followed by Dr. Paz and in fact had his Fernandez catheter removed 03/21. * Probable neurogenic bladder as he did have a TURP
--- NOTE | 2020-03-26 17:54 | PM.DS ---
DS: Admitting Diagnosis Admitting Diagnosis Admitting Diagnosis: Urinary tract infection, site not specified DS: Discharge Diagnosis Discharge Diagnosis (1) Urinary tract infection: Code(s): N39.0 - Urinary tract infection, site not specified Status: Acute Assessment and Plan: He was started on imipenem in conjunction with vancomycin for presumed cellulitis of the lower legs though probably is simple stasis dermatitis with ulceration. Wound care agrees and taylored antibiotics to UTI urine culture grew greater than 100,000 , klesiella Sen to all on panel but ampicillin and macrodantin switched to ceftriaxone daily 03/25(D#5 IV antibiotics total) and will complete ten-day course of antibiotics since he was indwelling Fernandez with Cipro 500 b.i.d. (2) Wound of lower extremity: Code(s): S81.809A - Unspecified open wound, unspecified lower leg, initial encounter Status: Acute Assessment and Plan: It looks like the patient has some chronic skin changes due to edema as well as superficial ulcerations.. Wound nurse agrees that mostly chronic and not acutely infected so stopped broad spectrum antibiotics and continue local care (3) Elevated troponin: Code(s): R79.89 - Other specified abnormal findings of blood chemistry Status: Acute Assessment and Plan: Troponins are flat and are not indicative of acute coronary syndrome. He is having no chest pain whatsoever. 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 (4) Generalized weakness: Code(s): R53.1 - Weakness Status: Acute Assessment and Plan: He has become gradually more weak over the past year at least, and it may very well be related to history of transverse myelitis. PT/OT treated while here and will continue at rehab Since he had missed a few doses of dexamethasone increased initially here and return to usual 2 mg dose on discharge. Tried to contact his neurologist but unable to do so. wrong # and not on Neurology staff at [place] (5) Type 2 diabetes mellitus: Code(s): E11.9 - Type 2 diabetes mellitus without complications Status: Acute Assessment and Plan: held his glimepiride and metformin as his a random glucose was well within normal limits and hemoglobin A1c was 5.6%. Initiated sliding scale insulin, while here and will resume metformin and glimepiride on discharge. (6) Essential hypertension: Code(s): I10 - Essential (primary) hypertension Status: Acute Assessment and Plan: Blood pressures were reviewed and they are well controlled. Continue ARB and beta-rm . (7) Chronic anemia: Code(s): D64.9 - Anemia, unspecified Status: Acute Assessment and Plan: Hemoglobin and hematocrit are stable on review of previous labs. (8) Urinary retention: Code(s): R33.9 - Retention of urine, unspecified Status: Acute Assessment and Plan: He is followed by Dr. Paz and in fact had his Fernandez catheter removed 03/21. Probable neurogenic bladder as he did have a TURP in October 2018. Urology has decided on chronic Fernandez. 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 Increased dexamethasone to 6 milligrams daily while h
== END 2020-03-26 17:45 | DRG 690 ==
LOC: ANHED 14:13 → ANHIMU 14:48 → ANH2MED 03-23 18:06
PROVIDERS: Physician Assistant; Admitting Provider Internal Medicine; Emergency Provider Emergency Medicine; PCP Internal Medicine; Visit Provider Internal Medicine
DX: N39.0 Urinary tract infection, site not specified (principal); L03.116 Cellulitis of left lower limb; L03.115 Cellulitis of right lower limb; G37.3 Acute transverse myelitis in demyelinating disease of central nervous system; E11.9 Type 2 diabetes mellitus without complications; I48.0 Paroxysmal atrial fibrillation; I10 Essential (primary) hypertension; E78.5 Hyperlipidemia, unspecified; N31.9 Neuromuscular dysfunction of bladder, unspecified; N40.1 Benign prostatic hyperplasia with lower urinary tract symptoms; Z86.73 Personal history of transient ischemic attack (TIA), and cerebral infarction without residual deficits; M19.90 Unspecified osteoarthritis, unspecified site; D64.9 Anemia, unspecified; B96.1 Klebsiella pneumoniae [K. pneumoniae] as the cause of diseases classified elsewhere; I87.2 Venous insufficiency (chronic) (peripheral)
CPT/HCPCS: 36415; 71045; 80048; 80076; 81001; 83036; 83605; 83735; 83880; 84443; 84484; 85025; 85610; 85730; 87040; 87077; 87086; 87088; 87186; 93005; 93306; 93970; 94762; 96365; 97110; 97162; 97166; 97530; 97535; 99285; A9270; J0696; J0743; J1650; J1815; J7030; J8540

== ENCOUNTER 2020-05-13 18:50 | Inpatient (IN) | payer MEDICARE, SELFPAY ==
[2020-05-13] VITALS (9 sets, daily range): BP systolic 122–140; BP diastolic 67–81; PULSE 98–125; RESP 26–33; TEMP 36.7–39.3; O2SAT 94–100
--- NOTE | ~2020-05-13 | CT_ITS ---
EXAMINATION: CT brain wo con DATE: 05/15/2020 13:32 INDICATION: Increased confusion TECHNIQUE: Computed tomography (CT) of the head was performed without intravenous contrast. The mA wa s adjusted according to patient size. Iterative reconstruction technique was employed. Exam dose: 60 5.33 mGy-cm total exam DLP. COMPARISON: 09/07/2014 CT brain FINDINGS: There is cerebral atherosclerotic calcification. There is nonspecific diminished attenuation of the cerebral white matter, likely due to chronic small vessel ischemic changes. No intracranial mass lesion or hemorrhage or cerebrovascular accident is detected. No midline shift o r mass effect. No subdural or epidural hematoma is detected. No fracture or bone destruction of the cranial vault. There is an approximately 19 mm polyp or mucous retention cyst in both maxillary sinuses. There is an approximately 15 mm polyp or mucous retention cyst in the left sphenoid sinus. IMPRESSION: Cerebral atherosclerosis and chronic small vessel ischemic changes of the cerebral white matter Reviewed, dictated and finalized at [facility]. Reviewed, dictated and finalized at location A.
--- NOTE | ~2020-05-13 | XR_ITS ---
EXAMINATION: XR chest 1V portable DATE: 05/15/2020 06:29 INDICATION: Pneumonia TECHNIQUE: frontal view of the chest was obtained. COMPARISON: Chest radiograph dated 05/13/2020 FINDINGS: Chronic elevation of the right hemidiaphragm. Opacities in the bilateral mid and lower lung zones wit h interval increase on the right. No pleural effusion or pneumothorax. Cardiomegaly. Median sternotom y wires and aortic valve repair. IMPRESSION: 1. Opacities in the bilateral mid and lower lung zones with interval worsening on the right represent atelectasis, pneumonia, pulmonary edema or some combination thereof. Reviewed, dictated and finalized at location A. IMPRESSION: 1. Opacities in the bilateral mid and lower lung zones with interval worsening on the right represent atelectasis, pneumonia, pulmonary edema or some combinat ion thereof.
--- NOTE | ~2020-05-13 | XR_ITS ---
EXAMINATION: XR chest 1V portable DATE: 05/24/2020 06:12 INDICATION: Pneumonia. TECHNIQUE: A single frontal view of the chest was obtained. COMPARISON: Chest single view 05/15/2020 FINDINGS: Again seen is mild elevation of right hemidiaphragm. There is mild atelectasis at the lung bases. No pleural effusion or pneumothorax. Cardiomegaly is noted. There are changes of heart valve r eplacement. IMPRESSION: 1. Mild atelectasis at the lung bases. 2. Chronic mild elevation of right hemidiaphragm. 3. Cardiomegaly. Reviewed, dictated and finalized at location A.
--- NOTE | ~2020-05-13 | XR_ITS ---
XR chest 1V portable 06/02/2020 18:12 Indication: Follow-up hypoxia Procedure: AP portable chest Comparison: Comparison to multiple prior studies sequentially, with oldest reviewed study dated 03/22. Findings: Status post median sternotomy for CABG. There is a prosthetic heart valve. Cardiomegaly. El evated right diaphragm. Right basilar atelectasis. No focal pneumonia, edema, pleural effusion or pne umothorax. There are degenerative changes of the glenohumeral joints. Impression: 1: Chronic elevation of the right diaphragm with underlying compressive atelectasis. 2: Cardiomegaly. Reviewed, dictated and finalized at location A. Impression: 1: Chronic elevation of the right diaphragm with underlying compressive atelect asis. 2: Cardiomegaly.
--- NOTE | ~2020-05-13 | CT_ITS ---
EXAMINATION: CT brain wo con EXAM DATE: 05/25/2020 12:44 INDICATION: Nausea. Temporary change in awareness. TECHNIQUE: Spiral CT of the head was performed without contrast. Axial, coronal and sagittal images were reviewed. The dose-length product (DLP) for this examination was 681.00 mGy-cm. The exposure w as tailored according to patient size, and iterative reconstruction (ASIR) was used as additional dos e reduction technique. Comparison is made to prior examination from 05/15/2020. FINDINGS: There is no acute intraparenchymal hemorrhage. No evidence of intraparenchymal brain mass lesion. No evidence of acute infarction. Please note that initial head CT has limited sensitivity f or small or acute infarctions. There is mild periventricular and subcortical hypodensity, nonspecific but probably related to small vessel ischemic disease. There is moderate prominence of the sulci a nd ventricles related to cerebral atrophy. There is intracranial carotid arteriosclerosis. There a re no extra-axial collections. There is no mass effect or midline shift. The orbits are unremarkabl e. Soft tissue is unremarkable. The visualized sinuses and mastoid air cells are well aerated. Th ere is no interval change. IMPRESSION: 1. No acute intracranial findings. 2. Chronic age related findings. Reviewed, dictated and finalized at location B.
--- NOTE | ~2020-05-13 | XR_ITS ---
EXAMINATION: XR abdomen/kub 1V DATE: 05/14/2020 06:13 INDICATION: Vomiting TECHNIQUE: A supine view of the abdomen on 2 radiographs was obtained. COMPARISON: CT abdomen and pelvis dated 03/24/2019 FINDINGS: Elevation of the right hemidiaphragm. No dilated loops of gas-filled bowel to suggest obstruction. Ca lcified nodules at the left lower lung zone consistent with old granulomatous disease. Cardiomegaly w ith change of prior median sternotomy and aortic valve repair. Combined instrumented anterior and pos terior spinal fusion at L3-S1. Fernandez catheter in the bladder. IMPRESSION: 1. No dilated gas-filled bowel to suggest obstruction. Reviewed, dictated and finalized at location A.
--- NOTE | ~2020-05-13 | XR_ITS ---
EXAMINATION: XR abdomen obstructive series DATE: 05/25/2020 09:26 INDICATION: Nausea TECHNIQUE: Upright and supine views of the abdomen were obtained. COMPARISON: 05/14/2020 FINDINGS: There are no dilated loops of bowel. No free intraperitoneal gas is identified. Surgical ch anges are noted in the lumbosacral spine. IMPRESSION: 1. Nonobstructive bowel gas pattern. Reviewed, dictated and finalized at location A.
--- NOTE | ~2020-05-13 | XR_ITS ---
EXAMINATION: XR chest 1V portable DATE: 05/13/2020 22:11 INDICATION: Febrile. Transient alteration of awareness. TECHNIQUE: frontal view of the chest was obtained. COMPARISON: Chest radiograph dated 03/22/2020 and 03/23/2019 FINDINGS: Chronic elevation of the right hemidiaphragm. There are opacities in the left mid and lower lung zone . No pleural effusion or pneumothorax. Cardiomegaly. Median sternotomy wires and an aortic valve repa ir. Moderate degenerative skeletal changes in the spine and at the right shoulder. IMPRESSION: 1. Mild opacities in the left mid and lower lung zone which could represent atelectasis, pneumonia or asymmetric pulmonary edema. Reviewed, dictated and finalized at location A. IMPRESSION: 1. Mild opacities in the left mid and lower lung zone which could represent ate lectasis, pneumonia or asymmetric pulmonary edema.
--- NOTE | ~2020-05-13 | US_ITS ---
EXAMINATION: US art doppler w crys MA EXAM DATE: 05/18/2020 17:32 INDICATION: Cold right foot, decreased pulse. TECHNIQUE: Segmental pressures and plethysmographic and Doppler waveforms of the brachial and lower e xtremity arteries were obtained. There is no prior study for comparison. FINDINGS: Right and left brachial artery pressures of 120 mm Hg and 131 mm Hg, respectively, are concordant (no rmal difference <= 30 mmHg). RIGHT LEG: The ankle-brachial index (TAYE) is could not obtain (normal >= 0.9-1). The great toe-brachial index (TBI) is 1.03 (normal >= 0.65). The lower extremity ratios, segmental pressure gradients as follows; Proximal superficial femoral artery:- Could not obtain ( mmHg). Distal superficial femoral artery: ----- 1.34 (175 mmHg). Popliteal: Could not obtain ( mmHg). Posterior tibial: Could not obtain ( mmHg). Dorsalis pedis: Could not obtain ( mmHg). (Normal gradients <= 20-30 mmHg between adjacent levels on the same leg or the same levels on the two legs). Arterial waveforms are biphasic. LEFT LEG: The ankle-brachial index (TAYE) is could not obtain (normal >= 0.9-1). The great toe-brachial index (TBI) is 0.63 (normal >= 0.65). The lower extremity ratios, segmental pressure gradients as follows; Proximal superficial femoral artery:- Could not obtain ( mmHg). Distal superficial femoral artery: ----- Could not obtain ( mmHg). Popliteal: Could not obtain ( mmHg). Posterior tibial: Could not obtain ( mmHg). Dorsalis pedis: Could not obtain ( mmHg). (Normal gradients <= 20-30 mmHg between adjacent levels on the same leg or the same levels on the two legs). Arterial waveforms are biphasic. IMPRESSION: Could not obtain most measurements. Reviewed, dictated and finalized at location A.
--- NOTE | ~2020-05-13 | MR_ITS ---
EXAMINATION: MR brain/brain stem wo/w con DATE: 05/30/2020 10:31 INDICATION: Confusion. TECHNIQUE: Magnetic resonance imaging (MRI) of the brain and brainstem was performed without and with 20 mL MultiHance intravenous contrast. Sequences included sagittal and axial T1-weighted FSE, axial diffusion-weighted FS EPI, axial T2*-weighted GRE, axial T2-weighted FLAIR Propeller, and axial T2-we ighted Propeller. Postcontrast sequences included axial and coronal T1-weighted FSE. Apparent diffusi on coefficient (ADC) maps were created. COMPARISON: Head CT 05/25/2020 FINDINGS: There are scattered small acute infarcts in the bilateral frontal and parietal lobes, right occipital lobe, and left cerebellum. There are old infarcts in the right cerebellum and right middle cerebellar peduncle. There is no intracranial hemorrhage or abnormal mass lesion. The ventricles are normal in size. There are likely changes of ocular lens replacement surgeries. There are mucous rete ntion cysts in the maxillary and sphenoid sinuses. The mastoid air cells are normal. IMPRESSION: 1. Small acute infarcts in the bilateral frontal and parietal lobes, right occipital lobe, and left c erebellum. 2. 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 Reviewed, dictated and finalized at location B. IMPRESSION: 1. Small acute infarcts in the bilateral frontal and parietal lobes, right occi pital lobe, and left cerebellum. 2. 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
--- NOTE | 2020-05-13 19:04 | ECG_ITS ---
Measurements Intervals [place] Rate: 106 P: 68 RI: 156 QRS: -72 QRSD: 134 T: -25 QT: 375 QTc: 498 Interpretive Statements SINUS TACHYCARDIA ATRIAL COUPLET AND ATRIAL PREMATURE COMPLEXES RIGHT BUNDLE BRANCH BLOCK LEFT ANTERIOR FASCICULAR BLOCK T WAVE ABNORMALITY IN ANTEROLATERAL LEADS- CONSIDER ISCHEMIA ABNORMAL ECG Electronically Signed On 05-13-2020 19:40:15 CDT by Deny Cabezas D.O.
[2020-05-13 19:21] LABS: Basophils Percent Auto 0.1 % (0.2-1.2); Hematocrit 34.3 % (42.0-52.0); Hemoglobin 11.8 g/dL (14.0-18.0); Immature Granulocyte Absolute 0.05 K/mm3 (0.00-0.031); Immature Granulocyte Percent A 0.5 % (0-0.5); Lymphocytes Absolute Auto 0.14 K/mm3 (0.9-3.2); Lymphocytes Percent Auto 1.5 % (18.3-44.2); Mean Corpuscular HGB Conc 34.4 g/dl (32-36); Mean Corpuscular Hemoglobin 30.8 pg (26-34); Mean Corpuscular Volume 89.6 fl (80-100); Mean Platelet Volume 9.8 fl (7.4-10.4); Monocytes Absolute Auto 0.3 K/mm3 (0.1-0.6); Monocytes Percent Auto 3.5 % (2.6-8.5); Neutrophils Percent Auto 94.4 % (45.5-73.1); Platelet Count Result 174 k/mm3 (150-375); Red Blood Count 3.83 M/mm3 (4.6-6.20); Red Cell Distribution Width 14.3 % (11.5-14.5); White Blood Count 9.6 K/mm3 (4.5-10.0)
[2020-05-13 19:26] LABS: Add Urine Microscopic? YES; Appearance Urine Clear (Clear); Bilirubin Urine 1+ (Negative); Blood Urine 1+ (Negative); Color Urine Amber (Yellow); Glucose Urine UA Negative (Negative); Ketones Urine 1+ mg/dL (Negative); Leukocyte Esterase Ur Trace LEU/UL (Negative); Mucus Urine Rare /lpf; Nitrate Urine Positive (Negative); Protein Urine 2+ mg/dL (Negative); Specific Grav Ur 1.027 (1.001-1.035); Squamous Epithelial Cell Urine Rare /hpf (Few)
[2020-05-13 19:43] LABS: Alanine Aminotransferase 26 U/L (4-50); Albumin Level 3.2 g/dL (3.5-5.1); Alkaline Phosphatase 90 U/L (38-126); Anion Gap 11 mmol/L (8-16); Aspartate Amino Transferase 25 U/L (17-59); Bilirubin,Total 1.4 mg/dL (0.2-1.3); Blood Urea Nitrogen 22 mg/dL (9-20); Calcium 7.9 mg/dL (8.4-10.2); Carbon Dioxide 20 mmol/L (22-30); Chloride 103 mmol/L (98-107); Estimated CRCL calculation 78 ml/min; Estimated Glomerular Filt Rate > 60; Glucose 226 mg/dL (75-110); Potassium 4.1 mmol/L (3.4-5.0); Sodium 134 mmol/L (137-145)
--- NOTE | 2020-05-13 19:50 | PC.NURSE ---
Informed ERP of Pt.'s HR and temperature. No further orders at this time.
--- NOTE | 2020-05-13 19:51 | PC.NURSE ---
Assumed care of pt at this time. Report from SHAYNA Mckee
--- NOTE | 2020-05-13 21:18 | ED.GENADULT ---
HPI - General Adult General Chief complaint: Altered Mental Status <Elsie Rojas PA-C - Last Filed: 05/13/20 22:19> Stated complaint: CONFUSION/ RECENT UTI DX <Elsie Rojas PA-C - Last Filed: 05/13/20 22:19> Time Seen by Provider: 05/13/20 20:11 <Elsie Rojas PA-C - Last Filed: 05/13/20 22:19> Source: family (daughter) <Elsie Rojas PA-C - Last Filed: 05/13/20 22:19> Mode of arrival: EMS <HAILE Guzman Last Filed: 05/13/20 22:19> Limitations: altered mental status <Elsie Rojas PA-C - Last Filed: 05/13/20 22:19> History of Present Illness HPI narrative: Patient was brought in from home by EMS accompanied by his daughter this evening due to altered mental status. Patient's daughter states that he was seen on Friday by his urologist and diagnosed with a testicular infection and started on Cipro p.o. 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 He is been treated multiple times for urinary tract infections. He was afebrile at home but was sleeping more in the last 12 hours and then was very confused. Here he does have a fever of 39.3 ?C. Daughter states that when well he can transfer himself from one chair to the other. <HAILE Guzman Last Filed: 05/13/20 22:19> Onset (ago): day(s) <HAILE Guzman Last Filed: 05/13/20 22:19> Treatments prior to arrival: none <HAILE Guzman Last Filed: 05/13/20 22:19> Related Data Home medications: Home Medications Medication Instructions Recorded Confirmed Myrbetriq 25 mg PO DAILY 03/22/20 03/22/20 atorvastatin 10 mg PO DAILY 03/22/20 03/22/20 dexamethasone 2 mg PO DAILY 03/22/20 03/22/20 furosemide 60 mg PO DAILY 03/22/20 03/22/20 glimepiride 2 mg PO DAILY 03/22/20 03/22/20 metformin 1,000 mg PO BID 03/22/20 03/22/20 metoprolol succinate 50 mg PO QAM 03/22/20 03/22/20 potassium chloride 20 meq PO DAILY 03/22/20 03/22/20 tamsulosin 0.4 mg PO HS 03/22/20 03/22/20 telmisartan 80 mg PO DAILY 03/22/20 03/22/20 <Elsie Rojas PA-C - Last Filed: 05/13/20 22:19> Allergies/adverse reactions: Allergies Allergy/AdvReac Type Severity Reaction Status Date / Time No Known Allergies Allergy Verified 05/13/20 19:07 <Elsie Rojas PA-C - Last Filed: 05/13/20 22:19> Review of Systems Review of Systems: ROS unobtainable: Yes unobtainable due to mental status <Elsie Rojas PA-C - Last Filed: 05/13/20 22:19> [facility] Family History Family History: Family History Sibling Diabetes mellitus Hypertension Mother Congestive heart failure COPD (chronic obstructive pulmonary disease) <Elsie Rojas PA-C - Last Filed: 05/13/20 22:19> Social History Social History: Social History Social History: Surrogate decision maker: Rosi Daniel, spouse. Code status: Full code. Smoking status: Never smoker Alcohol intake: never Substance use: never Additional living arrangements comments: Patient lives with his in [place]. Additional occupation/education comments: Retired educator. Gender identity (if verbalized by the patient): Male Spiritual care concerns: No <Elsie Rojas PA-C - Last Filed: 05/13/20 22:19> Exam Const: General: confusion and ill appearing <Elsie Rojas PA-C - Last Filed: 05/13/20 22:19> HENMT: Head: normal to inspection <HAILE Guzman Last Filed: 05/13/20 22:19> Eyes: Conjunctivae: conjunctivae normal <HAILE Guzman Last Filed: 05/13/20 22:19> Pupils: Equal, round and reactive pupils present <HAILE Guzman Last Filed: 05/13/20 22:19> Resp: Effort & Inspection: normal respiratory effort <HAILE Guzman Filed: 05/13/20 22:19> Auscultation: crackles (bases) bilateral <HAILE Guzman
--- NOTE | 2020-05-13 21:25 | PC.NURSE ---
Informed ERP of pt's temperature and HR. No further orders
--- NOTE | 2020-05-13 21:27 | PC.NURSE ---
One attempt at tirado catheter. Unsuccessful
[2020-05-13] MEDS: SODIUM CHLORIDE 0.9% IV 1,000 ML 999 ML IV CONT (21:37)
[2020-05-13] MEDS: KETOROLAC 30 MG/ML VIAL (*BKC) IV PUSH (21:37)
[2020-05-14] VITALS (26 sets, daily range): BP systolic 91–137; BP diastolic 44–75; PULSE 65–174; RESP 20–32; TEMP 36.5–38.6; O2SAT 95–99; BMI 33.2
[2020-05-14] MEDS: SODIUM CHLORIDE 0.9% IV 1,000 ML 125 ML IV CONT ×3 (00:06→16:05)
--- NOTE | 2020-05-14 00:11 | ADMGEN ---
This patient, Francisco J Sanchez, was admitted to 3 [facility] Surg Room 331-01. Patient/family oriented to hospital policies and general routines including ID bracelet, bed and alarms, visiting hours, pain management, procedures, bathroom and other care routines, personal items, smoking policy, room service/diet, and visiting hours. Valuables list has been completed. Information on how to activate the Rapid Response Team has been discussed. Patient/Family are encouraged to report perceived risks to care and to ask questions if they do not understand what they are told or what they should do.
--- NOTE | 2020-05-14 00:13 | PM.IMHP ---
H&P: HPI History of Present Illness Date/Time: 05/14/20 00:13 Chief complaint: Increased confusion Narrative: Francisco J Sanchez is a 79 year old male a past medical history of chronic hearing loss, transverse myelitis, and chronic urinary retention resulting in chronic Fernandez catheter who presented to the ER Via EMS from home due to altered mental status. source of information is past medical records and ER records as the patient is hard of hearing and left his hearing aids at home. Cannot understand what staff members are saying with staff wearing masks given the patient is on isolation for COVID-19 rule out. The patient was evaluated by Dr. Paz on Friday (05/10/2020) and diagnosed with a testicular infection. He was started on ciprofloxacin. The patient had evidently taken Citra earlier in the day and has been more confused. In the ER the patient was noted to be febrile with a T-max of 102.7?.At the time of my evaluation the patient reports that he feels a little bit better since he slept. He is not able to give me much else in the form of review of systems. the patient was asking me to find to channel on the television. He then began giving me nonsensical responses. He then told me he wanted to watch gun smoke. when asked the patient if you have more questions his responses were bizarre. He within would have a couple of normal sentences And then again provide bizarre answers again. The patient's Fernandez catheter was changed in the ER. Review of Systems Review of Systems: ROS unobtainable: Yes unobtainable due to medical condition ( limited due to the patient's hearing loss and confusion.) [facility] Past Medical History Medical History (Updated 05/14/20 @ 03:05 by Natasha Benson DO) Aortic stenosis Status post bioprosthetic aortic valve replacement. Basal cell carcinoma Excision of basal cell carcinoma from the left ala. Benign prostatic hyperplasia Chronic anemia Depression Dyslipidemia Essential hypertension Osteoarthritis Paroxysmal atrial fibrillation Peripheral neuropathy Transient ischemic attack Transverse myelitis (~01/2019) on chronic dexamethasone Type 2 diabetes mellitus Hemoglobin A1c was 9.3% in March 2019 and was 5.6% on 03/22/2020. Urinary retention Followed by Dr. Paz. Surgical History Surgical History History of aortic valve replacement with tissue graft (~08/2017) History of appendectomy History of arthroplasty of left knee (~2010) History of cataract extraction (~2014) History of inguinal hernia repair History of lumbar fusion (~2017) History of transurethral resection of prostate (~10/2018) Status post lumbar spine surgery for decompression of spinal cord (~2014) Status post surgical removal of malignant neoplasm of skin (~03/2018) Excision of basal cell carcinoma from the left ala. Family History Family History Sibling Diabetes mellitus Hypertension Mother Congestive heart failure COPD (chronic obstructive pulmonary disease) Social History Social History Social History: Surrogate decision maker: Rosi Sanchez, spouse. Code status: Full code. Smoking status: Never smoker Alcohol intake: never Substance use: never Additional living arrangements comments: Patient lives with his in [place]. Additional occupation/education comments: Retired educator. Gender identity (if verbalized by the patient): Male Sexual Orientation (if Verbalized by the Patient): Straight or Heterosexual Spiritual care concerns: No Meds Home Medications and Allergies Home Medications Medication Instructions Recorded Confirmed Type atorvastatin 10 mg PO DAILY 03/22/20 05/14/20 History dexamethasone 2 mg PO DAILY 03/22/20 05/14/20 History furosemide 40 mg PO DAILY 03/22/20 05/14/20 History
[2020-05-14 01:02] LABS: Lactic Acid Reflex 2.5 mmol/L (0.7-2.1)
--- NOTE | 2020-05-14 02:03 | ECG_ITS ---
Measurements Intervals [place] Rate: 126 P: [place]: 0 QRS: -62 QRSD: 141 T: 66 QT: 357 QTc: 518 Interpretive Statements ATRIAL FIBRILLATION WITH RAPID VENTRICULAR RESPONSE LEFT AXIS DEVIATION RIGHT BUNDLE BRANCH BLOCK BASELINE WANDER- I, II, III, AVF ABNORMAL ECG Electronically Signed On 05-14-2020 7:57:43 CDT by Deny Cabezas D.O.
[2020-05-14] MEDS: METOPROLOL TARTRATE INJ 5 MG/5 ML VIAL IV PUSH ×3 (03:13→21:25)
[2020-05-14 03:55] LABS: Reflex Lactic Acid Yes or No Add Lactic
[2020-05-14 04:39] LABS: Basophils Absolute Auto 0.1 K/mm3 (0.0-0.1); Basophils Percent Auto 0.6 % (0.2-1.2); Hematocrit 32.4 % (42.0-52.0); Hemoglobin 11.4 g/dL (14.0-18.0); Immature Granulocyte Absolute 0.07 K/mm3 (0.00-0.031); Immature Granulocyte Percent A 0.7 % (0-0.5); Lymphocytes Absolute Auto 0.19 K/mm3 (0.9-3.2); Mean Corpuscular HGB Conc 35.2 g/dl (32-36); Mean Corpuscular Hemoglobin 31.4 pg (26-34); Mean Corpuscular Volume 89.3 fl (80-100); Mean Platelet Volume 9.6 fl (7.4-10.4); Monocytes Absolute Auto 0.4 K/mm3 (0.1-0.6); Monocytes Percent Auto 3.6 % (2.6-8.5); Neutrophils Absolute Auto 8.9 K/mm3 (1.3-6.7); Neutrophils Percent Auto 93.1 % (45.5-73.1); Platelet Count Result 138 k/mm3 (150-375); Red Blood Count 3.63 M/mm3 (4.6-6.20); Red Cell Distribution Width 14.4 % (11.5-14.5); White Blood Count 9.6 K/mm3 (4.5-10.0)
[2020-05-14 04:55] LABS: Lactic Acid 2.2 mmol/L (0.7-2.1)
[2020-05-14 04:57] LABS: Magnesium 1.5 mg/dL (1.6-2.3)
[2020-05-14 05:01] LABS: Alanine Aminotransferase 27 U/L (4-50); Alkaline Phosphatase 81 U/L (38-126); Anion Gap 9 mmol/L (8-16); Aspartate Amino Transferase 28 U/L (17-59); Bilirubin,Total 1.1 mg/dL (0.2-1.3); Blood Urea Nitrogen 23 mg/dL (9-20); Calcium 7.8 mg/dL (8.4-10.2); Carbon Dioxide 19 mmol/L (22-30); Chloride 106 mmol/L (98-107); Estimated CRCL calculation 87 ml/min; Estimated Glomerular Filt Rate > 60; Glucose 202 mg/dL (75-110); Lactate Dehydrogenase 717 U/L (313-618); Potassium 3.3 mmol/L (3.4-5.0); Sodium 134 mmol/L (137-145)
--- NOTE | 2020-05-14 05:11 | PC.NURSE ---
This patient, Payton Andres, was transferred to [ ICU] on 05/11/20 at 0400. Personal belongings sent with patient. Report given to [Keri]. Appropriate documentation sent with patient.
--- NOTE | 2020-05-14 05:13 | PC.NURSE ---
This patient, Francisco J Sanchez, was transferred to [ ICU] on 05/14/20 at 0450. Personal belongings sent with patient. Report given to [Keri]. Appropriate documentation sent with patient.
[2020-05-14] MEDS: HEPARIN SODIUM 5,000 UNITS/ML VIAL 5000 UNITS SUB-Q (05:19)
[2020-05-14 05:24] LABS: D Dimer > 20.00 ug/mL (<0.48)
[2020-05-14 05:36] LABS: CRP 31.5 mg/dL (<1.0)
--- NOTE | 2020-05-14 06:22 | PC.NURSE ---
This patient, Francisco J Sanchez, was received from [3rd med-surg room 331 ] on 05/14/20 at 0450. Personal belongings list checked and signed. Patient/family oriented to unit policies and routines
[2020-05-14 08:24] LABS: Glucose Point of Care 257 (65-105)
[2020-05-14] MEDS: INSULIN ASPART (*BKC) 100 UNITS/ML SUB-Q ×2 (09:47→13:20)
--- NOTE | 2020-05-14 11:26 | WPDCN ---
Assessment and Plan Assessment and plan (1) Paroxysmal atrial fibrillation with rapid ventricular response: Code(s): I48.0 - Paroxysmal atrial fibrillation Status: Acute Assessment and Plan: Has post-op a fib in past, on amio inthe past, but maintained NSR for quite some time. Back in a fib RVR 2nd acute illness. After IV fluids, looks like BP can tolerate increasing cardizem to 10 mg/hr. May not be able to use amio this time 2nd QT prolongation. No bleeding issues; will start Eliquis 5 mg BID. (2) Severe sepsis: Code(s): A41.9 - Sepsis, unspecified organism; R65.20 - Severe sepsis without septic shock Status: Acute Assessment and Plan: Septic with elevated lactic acid on admission. On antibiotics for probable UTI (indwelling Fernandez), possible pneumonia, ruling out COVID. (3) History of aortic valve replacement with bioprosthetic valve: Code(s): Z95.3 - Presence of xenogenic heart valve Status: Acute Assessment and Plan: Bioprosthetic aortic valve replacement in 2016. Echo in March 2020 showed normal valve function. If blood cultures are positive will need to consider endocarditis. (4) QT prolongation: Code(s): R94.31 - Abnormal electrocardiogram [ECG] [EKG] Status: Acute Assessment and Plan: QT prolongation noted on EKG today, with a QTC of 518 millisecond. Personally reviewed, not terribly impressive. The patient is taking Cipro. May not be able to add amiodarone because of this. Will re-evaluate later during this hospitalization HPI Data of Consult Date/Time: 05/14/20 11:26 Requesting Physician: Natasha Benson DO Primary Care Provider: Nirav Villalobos, Consult Narrative Narrative: Date of SErvice: 05/14/2020 Francisco J Sanchez is a 79 year old male whom I was asked to see at the request of DR. Benson for my advice and opinion regarding his a fib RVR. The patient is followed by Dr. Mejia for his bioprosthetic aortic valve replacement, mild CAD , HTN, dyslipidemia, and history of TIA. He hadpostop AFib status post cardioversion. He has maintained sinus rhythm after discontinuing amiodarone and was last seen in January 2020. Last Echo 03/2020 as below. The patient was brought to the ER yesterday by EMS for altered mental status, and fever, and admitted for sepsis. He was recently treated for a testicular infection by his urologist. He was started on antibiotics for UTI vs PNA. He was transferred to the ICU because of new onset AFib RVR and hypotension. The EKG was read as showing QT prolongation, with a QTc of 518 msec. Currently heart rate is 110-130's w/ BP 104-125/75 mmHg after IV fluids on Cardizem 5 mg/hr. CRP and D-Dimer are high, CXR showed left lung opacities, and COVID screening in process. Oxygenating well on RA. Review of Systems Review of Systems: Narrative: review of systems was obtained from the nurse and the chart as patient is very confused. ROS unobtainable: Yes unobtainable due to medical condition Constitutional: Constitutional: Reports fatigue and Reports weakness Eyes: Eyes: Reports no additional eye complaints ENT: Denies epistaxis Cardiovascular: Cardiovascular: Denies chest pain, Reports leg edema and Reports palpitations Respiratory: Respiratory: Denies chest congestion and Reports dyspnea Gastrointestinal: Gastrointestinal: Denies abdominal pain and Denies hematochezia Genitourinary: Genitourinary: Denies hematuria Musculoskeletal: Musculoskeletal: Reports no additional musculoskeletal complaints Integumentary/Breasts: Skin/Breast: Reports erythema (RN repports macerated skin buttock) Neurologic: Reports Abnormal speech present and Reports confusion Psychiatric: Psychiatric: Reports behavioral c
[2020-05-14 12:06] LABS: Glucose Point of Care 223 (65-105)
[2020-05-14 13:06] LABS: SARS-CoV-2 RNA PCR Negative
--- NOTE | 2020-05-14 14:24 | PC.NURSE ---
Called Dr. Fenton regarding afib rate 120-140, increased Cardizem to 15 mg/ml per hour.
--- NOTE | 2020-05-14 14:51 | PM.IMPN ---
Progress Note: A&P Assessment and Plan (1) Severe sepsis: Code(s): A41.9 - Sepsis, unspecified organism; R65.20 - Severe sepsis without septic shock Status: Acute Assessment and Plan: Present on admission with fever, tachycardia, metabolic encephalopathy and lactic acidosis. Due to UTI and/or pneumonia. Blood cultures and urine cultures are pending. Being treated with Rocephin and Doxycycline. Lactic still elevatd. BCx have returned positive (2of2) for gram positive cocci in clusters from aerobic and anaerobic bottles. Will add Vanco. (2) UTI (urinary tract infection) due to urinary indwelling Fernandez catheter: Qualifiers: Encounter type: initial encounter Indwelling urinary catheter type: indwelling urethral catheter Qualified Code(s): T83.511A - Infection and inflammatory reaction due to indwelling urethral catheter, initial encounter; N39.0 - Urinary tract infection, site not specified Code(s): T83.511A - Infection and inflammatory reaction due to indwelling urethral catheter, initial encounter; N39.0 - Urinary tract infection, site not specified Status: Acute Assessment and Plan: Patient had a UTI in March that grew out Klebsiella pneumonia that was sensitive to most antibiotics. He was recently treated for testicular infection by Dr. Paz and was started on Cipro 05/10/2020. The patient's Fernandez catheter was changed while he was in the ER. Follow up on UCx (3) Pneumonia: Qualifiers: Laterality: bilateral Lung location: unspecified part of lung Pneumonia type: due to unspecified organism Qualified Code(s): J18.9 - Pneumonia, unspecified organism Code(s): J18.9 - Pneumonia, unspecified organism Status: Acute Assessment and Plan: CXR showing mild opacities in the left mid and lower lung zone suspected of being PNA. COVID test was negative. Continue Rocephin and doxycycline. BCx positive so Vanco added. Probably from PNA with Staph but could be urinary with Enterococcus. Hopefully not involving his valve. (4) Paroxysmal atrial fibrillation with rapid ventricular response: Code(s): I48.0 - Paroxysmal atrial fibrillation Status: Acute Assessment and Plan: No evidence that this is paroxysmal so suspect this is new onset related to the sepsis. Echo in March showing EF 70% with grade I diastolic dysfunction. He was started on Diltiazem 5mg/hour and has required adjustment to 15mg/hr. He is still tachycardic so one dose of IV Lopressor given. Cardiology following. Eliquis started. (5) Altered mental status: Qualifiers: Altered mental status type: unspecified Qualified Code(s): R41.82 - Altered mental status, unspecified Code(s): R41.82 - Altered mental status, unspecified Status: Acute Assessment and Plan: Patient with toxic encephalopthy related to above. No CT brain so will order this since he is off isolation now and once his HR better controlled. (6) History of aortic valve replacement with bioprosthetic valve: Code(s): Z95.3 - Presence of xenogenic heart valve Status: Acute Assessment and Plan: Patient had a bioprosthetic aortic valve replacement in 2016. Echo in March 2020 showed normal aortic valve function. Consider repeating Echo as a EVELYN given the positive BCx. Will plan to repeat BCx to see if persistently positive. (7) QT prolongation: Code(s): R94.31 - Abnormal electrocardiogram [ECG] [EKG] Status: Acute Assessment and Plan: QTc 518 but patient with RBBB and is in AFib. QTc in March was 509. Suspect related to the conduction abnormalities intrinsic to the heart. 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 Contineu chronic Fernandez. This has been changed out already.
[2020-05-14 18:34] LABS: Glucose Point of Care 121 (65-105)
[2020-05-14] MEDS: HYDROCORTISONE SODIUM SUCCINATE 100 MG/2 ML VIAL 50 MG IV PUSH (21:26)
[2020-05-14] MEDS: APIXABAN 5 MG TABLET PO (21:29)
[2020-05-14] MEDS: AMIODARONE 150 MG/D5W 100 ML 150 MG/100 ML BAG 600 MG IV CONT (22:12)
[2020-05-14] MEDS: AMIODARONE 360 MG/D5W 200 ML 360 MG/200 ML BAG 33.3 MG IV CONT (22:28)
[2020-05-15] VITALS (29 sets, daily range): BP systolic 101–143; BP diastolic 53–85; PULSE 74–142; RESP 18–35; TEMP 36.2–37.4; O2SAT 95–100
[2020-05-15] MEDS: METOPROLOL TARTRATE INJ 5 MG/5 ML VIAL IV PUSH ×5 (01:56→18:36)
--- NOTE | 2020-05-15 03:00 | ECG_ITS ---
Measurements Intervals [place] Rate: 102 P: [place]: 0 QRS: -48 QRSD: 153 T: 57 QT: 427 QTc: 557 Interpretive Statements ATRIAL FIBRILLATION WITH RAPID VENTRICULAR RESPONSE LEFT AXIS DEVIATION RIGHT BUNDLE BRANCH BLOCK CANNOT RULE OUT SEPTAL INFARCT, AGE INDETERMINATE BASELINE WANDER- I, II, AVR, AVL, AVF, V5 ABNORMAL ECG Electronically Signed On 05-15-2020 8:00:18 CDT by Deny Cabezas D.O.
[2020-05-15 04:28] LABS: Basophils Percent Auto 0.2 % (0.2-1.2); Hematocrit 31.4 % (42.0-52.0); Hemoglobin 10.8 g/dL (14.0-18.0); Immature Granulocyte Absolute 0.11 K/mm3 (0.00-0.031); Immature Granulocyte Percent A 1.3 % (0-0.5); Lymphocytes Absolute Auto 0.26 K/mm3 (0.9-3.2); Lymphocytes Percent Auto 3.1 % (18.3-44.2); Mean Corpuscular HGB Conc 34.4 g/dl (32-36); Mean Corpuscular Hemoglobin 30.7 pg (26-34); Mean Corpuscular Volume 89.2 fl (80-100); Mean Platelet Volume 10.3 fl (7.4-10.4); Monocytes Absolute Auto 0.4 K/mm3 (0.1-0.6); Monocytes Percent Auto 4.3 % (2.6-8.5); Neutrophils Absolute Auto 7.8 K/mm3 (1.3-6.7); Neutrophils Percent Auto 91.1 % (45.5-73.1); Platelet Count Result 111 k/mm3 (150-375); Red Blood Count 3.52 M/mm3 (4.6-6.20); Red Cell Distribution Width 14.2 % (11.5-14.5); White Blood Count 8.5 K/mm3 (4.5-10.0)
[2020-05-15] MEDS: AMIODARONE 360 MG/D5W 200 ML 360 MG/200 ML BAG 16.7 MG IV CONT ×3 (04:31→23:36)
[2020-05-15] MEDS: SODIUM CHLORIDE 0.9% IV 1,000 ML 100 ML IV CONT (04:39)
[2020-05-15 04:50] LABS: Lactic Acid 1.5 mmol/L (0.7-2.1)
[2020-05-15 04:57] LABS: Alanine Aminotransferase 28 U/L (4-50); Albumin Level 2.7 g/dL (3.5-5.1); Alkaline Phosphatase 85 U/L (38-126); Anion Gap 8 mmol/L (8-16); Aspartate Amino Transferase 32 U/L (17-59); Bilirubin,Total 0.8 mg/dL (0.2-1.3); Blood Urea Nitrogen 18 mg/dL (9-20); Calcium 7.6 mg/dL (8.4-10.2); Carbon Dioxide 22 mmol/L (22-30); Chloride 105 mmol/L (98-107); Estimated CRCL calculation 98 ml/min; Estimated Glomerular Filt Rate > 60; Glucose 176 mg/dL (75-110); Magnesium 1.8 mg/dL (1.6-2.3); Phosphorus 2.4 mg/dL (2.5-4.5); Potassium 2.8 mmol/L (3.4-5.0); Sodium 135 mmol/L (137-145)
--- NOTE | 2020-05-15 05:01 | PC.NURSE ---
report received from SHAYNA Luque.
--- NOTE | 2020-05-15 05:28 | PC.NURSE ---
05/15/20: 0520: PATIENT TRANSFERRED FROM ICU ROOM 8 TO IMU ROOM 7. PATIENT CALL LIGHT AND BELONGINGS WITHIN REACH. PATIENT ORIENTED TO ROOM.
--- NOTE | 2020-05-15 05:32 | PC.NURSE ---
This patient, Francisco J Sanchez, was transferred to [facility] on 05/15/20 at 0532. Personal belongings sent with patient. Belongings list checked and signed with receiving nurse. Report given to Lizabeth Nevarez . Appropriate documentation sent with patient.
--- NOTE | 2020-05-15 05:35 | PC.NURSE ---
Patient received from ICU 8.
[2020-05-15] MEDS: HYDROCORTISONE SODIUM SUCCINATE 100 MG/2 ML VIAL 50 MG IV PUSH ×3 (06:04→23:35)
--- NOTE | 2020-05-15 07:00 | ECG_ITS ---
Measurements Intervals [place] Rate: 106 P: MD: 0 QRS: -73 QRSD: 154 T: 79 QT: 406 QTc: 542 Interpretive Statements ATRIAL FIBRILLATION WITH RAPID VENTRICULAR RESPONSE VENTRICULAR PREMATURE COMPLEX RIGHT BUNDLE BRANCH BLOCK LEFT ANTERIOR FASCICULAR BLOCK CANNOT RULE OUT SEPTAL INFARCT, AGE INDETERMINATE ABNORMAL ECG Electronically Signed On 05-15-2020 8:01:19 CDT by Deny Cabezas D.O.
[2020-05-15 08:24] LABS: Glucose Point of Care 163 (65-105)
[2020-05-15] MEDS: MAGNESIUM SULF 2 GM/WATER 50ML 2 GM/50 ML BAG IVPB (08:35)
[2020-05-15] MEDS: COLLAGENASE OINT 30 GM TUBE 1 APPLIC TOPICAL (08:37)
--- NOTE | 2020-05-15 10:51 | PM.PNCARD ---
Progress Note: A&P Assessment and Plan (1) Paroxysmal atrial fibrillation with rapid ventricular response: Code(s): I48.0 - Paroxysmal atrial fibrillation Status: Acute Assessment and Plan: Has post-op a fib in past, on amio inthe past, but maintained NSR for quite some time. Back in a fib RVR 2nd acute illness. After IV fluids, looks like BP can tolerate increasing cardizem to 10 mg/hr. No bleeding issues; Check an EKG today since amiodarone is now being given to assess QTC since it was prolonged (2) Severe sepsis: Code(s): A41.9 - Sepsis, unspecified organism; R65.20 - Severe sepsis without septic shock Status: Acute Assessment and Plan: Septic with elevated lactic acid on admission. On antibiotics for probable UTI (indwelling Fernandez), possible pneumonia, ruling out COVID. ____ Furosemide 40 mg IV x1. Replace potassium aggressively with an additional 40 mEq IV x1 (3) History of aortic valve replacement with bioprosthetic valve: Code(s): Z95.3 - Presence of xenogenic heart valve Status: Acute Assessment and Plan: Bioprosthetic aortic valve replacement in 2017. Echo in March 2020 showed normal valve function. If blood cultures are positive will need to consider endocarditis. (4) QT prolongation: Code(s): R94.31 - Abnormal electrocardiogram [ECG] [EKG] Status: Acute Assessment and Plan: EKG today Subjective Date/time seen: 05/15/20 10:51 Interval history: 79yo male with hx of transverse myelitis, DM and chronic indwelling Fernandez here for confusion and found to have severe sepsis. Date of [id number]/15/2020: continues to have some degree of confusion. Somnolent. Responsive to pain and verbal stimuli. No issues with chest pain at this point but heart rate still marginally controlled. Review of Systems Review of Systems: ROS unobtainable: Yes unobtainable due to medical condition Constitutional: Constitutional: Reports fatigue and Reports weakness Eyes: Eyes: Reports no additional eye complaints ENT: Denies epistaxis Cardiovascular: Cardiovascular: Denies chest pain, Reports leg edema, Reports palpitations and Reports dyspnea Respiratory: Respiratory: Denies chest congestion and Reports dyspnea Gastrointestinal: Gastrointestinal: Denies abdominal pain and Denies hematochezia Genitourinary: Genitourinary: Denies hematuria Musculoskeletal: Musculoskeletal: Reports no additional musculoskeletal complaints Integumentary/Breasts: Skin/Breast: Reports erythema (RN repports macerated skin buttock) Neurologic: Reports Abnormal speech present, Reports behavioral changes, Reports confusion and Reports weakness Psychiatric: Psychiatric: Reports behavioral changes and Reports confusion Endocrine: Endocrine: Reports fatigue and Reports palpitations Exam Narrative: Exam Narrative: Ill-appearing white male who is confused, mildly tachypneic but not require O2, in the ACU. Const: General: in distress mild and confusion Orientation/consciousness: confusion HENMT: General nose exam: no epistaxis Eyes: General: appearance normal, both eyes and all related structures Neck: Neck: supple Resp: Effort & Inspection: abnormal respiratory effort ( Mild tachypnea) Cardio: Rate: tachycardic Rhythm: abnormal rhythm irregularly irregular Urinary Catheter: Urinary Catheter: patent and draining and urine dark Skin: Wounds: wounds noted (RN reports skin maceration buttock) Neuro: General: confusion Cognition (Neuro): normal cognition (very confused) Speech: Abnormal speech present Extrem: General: edema (2+ LE edema) Psych: Mental Status: mental status grossly abnormal Objective Data Vital Signs Vital Signs: Vital Signs - 24 hr 05/14/20 11:39 05/14/20 11:50 05/14/20 12:00 Temperature 38.3 C H Pulse Rate 103 H 117 H 117 H Respir
--- NOTE | 2020-05-15 10:55 | ECG_ITS ---
Measurements Intervals [place] Rate: 99 P: [place]: 0 QRS: -67 QRSD: 157 T: 68 QT: 442 QTc: 569 Interpretive Statements ATRIAL FIBRILLATION RIGHT BUNDLE BRANCH BLOCK LEFT ANTERIOR FASCICULAR BLOCK ABNORMAL ECG Electronically Signed On 05-15-2020 12:24:46 CDT by Deny Cabezas D.O.
[2020-05-15 11:30] LABS: Glucose Point of Care 271 (65-105)
[2020-05-15] MEDS: FUROSEMIDE INJ 40 MG/4 ML VIAL IV PUSH (11:56)
[2020-05-15] MEDS: INSULIN ASPART (*BKC) 100 UNITS/ML SUB-Q ×2 (12:02→18:36)
--- NOTE | 2020-05-15 12:39 | PM.IMPN ---
Progress Note: A&P Assessment and Plan (1) Severe sepsis: Code(s): A41.9 - Sepsis, unspecified organism; R65.20 - Severe sepsis without septic shock Status: Acute Assessment and Plan: Severe sepsis with septicemia. Present on admission with fever, tachycardia, metabolic encephalopathy and lactic acidosis. Due to UTI and/or pneumonia. Blood cultures and urine cultures all growing Staph aureus. Started on Rocephin and Doxycycline with Vanco added 05/14/20. Lactic level normal now. Continue current IV abx. Repeat BCx tomorrow. (2) UTI (urinary tract infection) due to urinary indwelling Fernandez catheter: Qualifiers: Encounter type: initial encounter Indwelling urinary catheter type: indwelling urethral catheter Qualified Code(s): T83.511A - Infection and inflammatory reaction due to indwelling urethral catheter, initial encounter; N39.0 - Urinary tract infection, site not specified Code(s): T83.511A - Infection and inflammatory reaction due to indwelling urethral catheter, initial encounter; N39.0 - Urinary tract infection, site not specified Status: Acute Assessment and Plan: Patient had a UTI in March that grew out Klebsiella pneumonia that was sensitive to most antibiotics. He was recently treated for testicular infection by Dr. Paz and was started on Cipro 05/10/2020. The patient's Fernandez catheter was changed while he was in the ER. UCx growing Staph aureus so could be the source of the infection (or possibly hematologic spread given the low colony count). Treatment as above. (3) Pneumonia: Qualifiers: Laterality: bilateral Lung location: unspecified part of lung Pneumonia type: due to unspecified organism Qualified Code(s): J18.9 - Pneumonia, unspecified organism Code(s): J18.9 - Pneumonia, unspecified organism Status: Acute Assessment and Plan: CXR showing mild opacities in the left mid and lower lung zone suspected of being PNA. COVID test was negative. Started on Rocephin and doxycycline. BCx positive so Vanco added. Minimal O2 requirement but CXR looks worse. Add nebs since COVID negative. CPT. Still could be pulmonary edema given the BNP 2200. Lasix given once. Stop IVF. (4) Paroxysmal atrial fibrillation with rapid ventricular response: Code(s): I48.0 - Paroxysmal atrial fibrillation Status: Acute Assessment and Plan: No evidence that this is paroxysmal so suspect this is new onset related to the sepsis. Echo in March showing EF 70% with grade I diastolic dysfunction. He was started on Diltiazem 5mg/hour and has required adjustment to 15mg/hr. He is still tachycardic so one dose of IV Lopressor given. Cardiology following. Amiodarone drip started and rate better today. Continue tele. Appreciate Cardiology input. (5) Altered mental status: Qualifiers: Altered mental status type: unspecified Qualified Code(s): R41.82 - Altered mental status, unspecified Code(s): R41.82 - Altered mental status, unspecified Status: Acute Assessment and Plan: Patient with toxic encephalopthy related to above. TSH okay. No CT brain so will order this now that he is more stable. Check ABG to exclude hypercarbia. CT brain showing no acute findings. ABG 7.48//. Patient becoming more awake. Suspect should improve with continued treatment of his infectin. (6) History of aortic valve replacement with bioprosthetic valve: Code(s): Z95.3 - Presence of xenogenic heart valve Status: Acute Assessment and Plan: Patient had a bioprosthetic aortic valve replacement in 2016. Echo in March 2020 showed normal aortic valve function. Consider repeating Echo as a EVELYN given the positive BCx. Will plan to repeat BCx to see if persistently positive. (7) QT prolongation: Code(s): R94.31 - Abnormal electrocardiogram [ECG] [EKG] Status: Acute Assessment an
[2020-05-15 13:00] LABS: Alveolar/Arterial O2 Gradient 44.5 mmHg; Base Excess ABG -3.3 mEq/l (+/-2.0); Device ROOM AIR; Fractional Inspired Oxygen 21 %; HCO3 ABG 18.8 mEq/l (22.0-26.0); Modified Allen's Test Pass; Oxygen Content ABG 15.5 %vol (16.0-22.0); Oxygen Saturation ABG 96.2 % (95.0-100.0); Oxyhemoglobin 94.1 % THb (90.0-100.0); PCO2 ABG 25.5 mmHg (35.0-45.0); PO2 ABG 74.7 mmHg (80.0-100.0); PO2 FiO2 Ratio Arterial Blood 3.56 %; Site Drawn LEFT RADIAL; Total Hemoglobin 11.7 g/dL (12.0-18.0); pH ABG 7.485 (7.350-7.450)
[2020-05-15] MEDS: ENOXAPARIN 40 MG/0.4 ML SYRINGE SUB-Q (13:56)
[2020-05-15 17:09] LABS: Glucose Point of Care 210 (65-105)
[2020-05-15 20:18] LABS: Glucose Point of Care 200 (65-105)
[2020-05-16] VITALS (30 sets, daily range): BP systolic 103–135; BP diastolic 65–99; PULSE 74–125; RESP 20–26; TEMP 36.3–36.7; O2SAT 94–100
[2020-05-16] MEDS: METOPROLOL TARTRATE INJ 5 MG/5 ML VIAL IV PUSH ×3 (00:49→08:50)
[2020-05-16] MEDS: HYDROCORTISONE SODIUM SUCCINATE 100 MG/2 ML VIAL 50 MG IV PUSH ×3 (05:33→21:55)
[2020-05-16 07:46] LABS: Glucose Point of Care 218 (65-105)
[2020-05-16] MEDS: ENOXAPARIN 40 MG/0.4 ML SYRINGE SUB-Q (08:50)
[2020-05-16] MEDS: INSULIN ASPART (*BKC) 100 UNITS/ML SUB-Q ×3 (08:52→17:34)
[2020-05-16] MEDS: COLLAGENASE OINT 30 GM TUBE 1 APPLIC TOPICAL (08:54)
[2020-05-16 09:08] LABS: Basophils Percent Auto 0.1 % (0.2-1.2); Hematocrit 33.1 % (42.0-52.0); Hemoglobin 11.3 g/dL (14.0-18.0); Immature Granulocyte Absolute 0.05 K/mm3 (0.00-0.031); Immature Granulocyte Percent A 0.6 % (0-0.5); Lymphocytes Absolute Auto 0.31 K/mm3 (0.9-3.2); Lymphocytes Percent Auto 3.5 % (18.3-44.2); Mean Corpuscular HGB Conc 34.1 g/dl (32-36); Mean Corpuscular Hemoglobin 30.5 pg (26-34); Mean Corpuscular Volume 89.2 fl (80-100); Mean Platelet Volume 10.6 fl (7.4-10.4); Monocytes Absolute Auto 0.3 K/mm3 (0.1-0.6); Monocytes Percent Auto 3.6 % (2.6-8.5); Neutrophils Absolute Auto 8.3 K/mm3 (1.3-6.7); Neutrophils Percent Auto 92.2 % (45.5-73.1); Platelet Count Result 121 k/mm3 (150-375); Red Blood Count 3.71 M/mm3 (4.6-6.20); Red Cell Distribution Width 14.3 % (11.5-14.5)
[2020-05-16 09:26] LABS: Albumin Level 2.8 g/dL (3.5-5.1); Anion Gap 8 mmol/L (8-16); Blood Urea Nitrogen 20 mg/dL (9-20); Calcium 7.7 mg/dL (8.4-10.2); Carbon Dioxide 22 mmol/L (22-30); Chloride 104 mmol/L (98-107); Estimated CRCL calculation 98 ml/min; Estimated Glomerular Filt Rate > 60; Glucose 227 mg/dL (75-110); Magnesium 2.2 mg/dL (1.6-2.3); Phosphorus 2.5 mg/dL (2.5-4.5); Potassium 3.6 mmol/L (3.4-5.0); Sodium 134 mmol/L (137-145)
[2020-05-16 09:28] LABS: Ammonia < 9 umol/L (9-30)
[2020-05-16 09:53] LABS: Vancomycin Trough 14.4 ug/mL (10.0-20.0)
[2020-05-16 10:30] LABS: Folic Acid 11.4 ng/mL (2.76->20)
--- NOTE | 2020-05-16 11:22 | PM.PNCARD ---
Progress Note: A&P Assessment and Plan (1) Paroxysmal atrial fibrillation with rapid ventricular response: Code(s): I48.0 - Paroxysmal atrial fibrillation Status: Acute Assessment and Plan: Has post-op a fib in past, on amio inthe past, but maintained NSR for quite some time. Back in a fib RVR 2nd acute illness. After IV fluids, looks like BP can tolerate increasing cardizem to 10 mg/hr. No bleeding issues; DC IV metoprolol. Start him on metoprolol tartrate 50 mg p.o. b.i.d. DC amiodarone for now and add oral amiodarone if need be (2) Severe sepsis: Code(s): A41.9 - Sepsis, unspecified organism; R65.20 - Severe sepsis without septic shock Status: Acute Assessment and Plan: Septic with elevated lactic acid on admission. On antibiotics for probable UTI (indwelling Fernandez), possible pneumonia, ruling out COVID. (3) History of aortic valve replacement with bioprosthetic valve: Code(s): Z95.3 - Presence of xenogenic heart valve Status: Acute Assessment and Plan: Bioprosthetic aortic valve replacement in 2017. Echo in March 2020 showed normal valve function. If blood cultures are positive will need to consider endocarditis. (4) QT prolongation: Code(s): R94.31 - Abnormal electrocardiogram [ECG] [EKG] Status: Acute Assessment and Plan: still prolonged Subjective Date/time seen: 05/16/20 11:22 Interval history: 79yo male with hx of transverse myelitis, DM and chronic indwelling Fernandez here for confusion and found to have severe sepsis. Date of [id number]/16/2020: much more awake today but still confused. A and O times 1-2 Review of Systems Constitutional: Constitutional: Reports fatigue and Reports weakness Eyes: Eyes: Reports no additional eye complaints ENT: Denies epistaxis Cardiovascular: Cardiovascular: Denies chest pain, Reports leg edema, Reports palpitations and Reports dyspnea Respiratory: Respiratory: Denies chest congestion and Reports dyspnea Gastrointestinal: Gastrointestinal: Denies abdominal pain and Denies hematochezia Genitourinary: Genitourinary: Denies hematuria Musculoskeletal: Musculoskeletal: Reports no additional musculoskeletal complaints Integumentary/Breasts: Skin/Breast: Reports erythema (RN repports macerated skin buttock) Neurologic: Reports Abnormal speech present, Reports behavioral changes, Reports confusion and Reports weakness Psychiatric: Psychiatric: Reports behavioral changes and Reports confusion Endocrine: Endocrine: Reports fatigue and Reports palpitations Exam Narrative: Exam Narrative: Ill-appearing white male who is confused, mildly tachypneic but not require O2, in the ACU. Const: General: in distress mild and confusion Orientation/consciousness: confusion HENMT: General nose exam: no epistaxis Eyes: General: appearance normal, both eyes and all related structures Neck: Neck: supple Resp: Effort & Inspection: abnormal respiratory effort ( Mild tachypnea) Cardio: Rate: tachycardic Rhythm: abnormal rhythm irregularly irregular Urinary Catheter: Urinary Catheter: patent and draining and urine dark Skin: Wounds: wounds noted (RN reports skin maceration buttock) Neuro: General: confusion Cognition (Neuro): normal cognition (very confused) Speech: Abnormal speech present Extrem: General: edema (2+ LE edema) Psych: Mental Status: mental status grossly abnormal and other ( confused) Objective Data Vital Signs Vital Signs: Vital Signs - 24 hr 05/15/20 12:00 05/15/20 12:02 05/15/20 12:09 Temperature Pulse Rate 124 H 107 H 82 Respiratory Rate Blood Pressure Pulse Oximetry 05/15/20 14:00 05/15/20 14:40 05/15/20 14:50 Temperature Pulse Rate 82 88 90 Respiratory Rate 18 18 Blood Pressure Pulse Oximetry 96 05/15/20 16:00 05/15/20 18:00 05/15/20 18:36 Temperature 36
[2020-05-16] MEDS: METOPROLOL TARTRATE 50 MG TAB PO ×2 (12:09→20:48)
[2020-05-16] MEDS: POTASSIUM CHLORIDE 20 MEQ PACKET (FOR LIQUID) 40 MEQ PO (12:09)
[2020-05-16] MEDS: FUROSEMIDE INJ 40 MG/4 ML VIAL IV PUSH (12:09)
[2020-05-16 12:23] LABS: Glucose Point of Care 254 (65-105)
[2020-05-16 16:25] LABS: Glucose Point of Care 268 (65-105)
--- NOTE | 2020-05-16 17:56 | PM.IMPN ---
Progress Note: A&P Assessment and Plan (1) Severe sepsis: Code(s): A41.9 - Sepsis, unspecified organism; R65.20 - Severe sepsis without septic shock Status: Acute Assessment and Plan: Severe sepsis with septicemia. Present on admission with fever, tachycardia, metabolic encephalopathy and lactic acidosis. Due to UTI and/or pneumonia. Blood cultures and urine cultures all growing Staph aureus. Started on Rocephin and Doxycycline with Vanco added 05/14/20. Lactic level normal now. Continue current IV abx. Repeat BCx tomorrow. and have seen by ID (2) UTI (urinary tract infection) due to urinary indwelling Fernandez catheter: Qualifiers: Indwelling urinary catheter type: indwelling urethral catheter Encounter type: initial encounter Qualified Code(s): T83.511A - Infection and inflammatory reaction due to indwelling urethral catheter, initial encounter; N39.0 - Urinary tract infection, site not specified Code(s): T83.511A - Infection and inflammatory reaction due to indwelling urethral catheter, initial encounter; N39.0 - Urinary tract infection, site not specified Status: Acute Assessment and Plan: Patient had a UTI in March that grew out Klebsiella pneumonia that was sensitive to most antibiotics. He was recently treated for testicular infection by Dr. Paz and was started on Cipro 05/10/2020. The patient's Fernandez catheter was changed while he was in the ER. UCx growing Staph aureus so could be the source of the infection (or possibly hematologic spread given the low colony count). Treatment as above. (3) Pneumonia: Qualifiers: Laterality: bilateral Lung location: unspecified part of lung Pneumonia type: due to unspecified organism Qualified Code(s): J18.9 - Pneumonia, unspecified organism Code(s): J18.9 - Pneumonia, unspecified organism Status: Acute Assessment and Plan: CXR showing mild opacities in the left mid and lower lung zone suspected of being PNA. COVID test was negative. Started on Rocephin and doxycycline. BCx positive so Vanco added. Minimal O2 requirement but CXR looks worse. Add nebs since COVID negative. CPT. Still could be pulmonary edema given the BNP 2200. Lasix given once. Stopped IVF.05/15 (4) Paroxysmal atrial fibrillation with rapid ventricular response: Code(s): I48.0 - Paroxysmal atrial fibrillation Status: Acute Assessment and Plan: No evidence that this is paroxysmal so suspect this is new onset related to the sepsis. Echo in March showing EF 70% with grade I diastolic dysfunction. He was started on Diltiazem 5mg/hour and has required adjustment to 15mg/hr. He is still tachycardic so one dose of IV Lopressor given. Cardiology following. Amiodarone drip started and rate better today.and transitioning to po Continue tele. Appreciate Cardiology input. (5) Altered mental status: Qualifiers: Altered mental status type: unspecified Qualified Code(s): R41.82 - Altered mental status, unspecified Code(s): R41.82 - Altered mental status, unspecified Status: Acute Assessment and Plan: Patient with toxic encephalopthy related to above. TSH okay. No CT brain so will order this now that he is more stable. CT brain showing no acute findings. ABG 7.48/26/75. Patient becoming more awake. Suspect should improve with continued treatment of his infectin. (6) History of aortic valve replacement with bioprosthetic valve: Code(s): Z95.3 - Presence of xenogenic heart valve Status: Acute Assessment and Plan: Patient had a bioprosthetic aortic valve replacement in 2016. Echo in March 2020 showed normal aortic valve function. Consider repeating Echo as a EVELYN given the positive BCx. cardiology following and will get ID opinion (7) QT prolongation: Code(s): R94.31 - Abnormal electrocardiogram [ECG] [EKG] Status: Acute Assessment
[2020-05-16 20:33] LABS: Glucose Point of Care 202 (65-105)
--- NOTE | 2020-05-16 21:10 | PC.NURSE ---
05/16/20:2110: PATIENT IS HAVING HALLUCINATIONS. PATIENT THREW HIS WATER CUP AT THE WINDOW. HE STATED THAT THERE IS AN OFFICER OUTSIDE HIS WINDOW WATCHING HIM. HE KEEPS SAY SIR. WE CLOSED THE BLINDS TO HELP STOP THIS BUT HE IS STILL SEEING THIS MAN.
--- NOTE | 2020-05-16 22:37 | PC.NURSE ---
05/16/20:2237: PATIENTS SPOUSE CALLED AND STATED THAT THE PATIENT CALLED AN OUT OF TOWN FRIEND AND TOLD THEM THAT HE WAS IN [place] AND THAT HE WAS IN TROUBLE THAT HE NEEDED HELP. HE GAVE A SPECIFIC LOCATION AND THEY WENT TO GET HIM. HE THEN TEXT HIS TO LET THEM KNOW THAT HE WAS IN THE BATHROOM AT THAT PLACE. SPOUSE IS VERY CONCERNED ABOUT THE INCREASED CONFUSION OF THE PATIENT. WANTED TO CALL US AND LET US KNOW WHAT THE PATIENT IS DOING.
[2020-05-17] VITALS (24 sets, daily range): BP systolic 116–158; BP diastolic 69–98; PULSE 78–135; RESP 18–24; TEMP 36.2–36.9; O2SAT 93–100; BMI 11.0
[2020-05-17 04:55] LABS: Basophils Percent Auto 0.2 % (0.2-1.2); Eosinophils Percent Auto 0.1 % (0-4.4); Hematocrit 31.9 % (42.0-52.0); Hemoglobin 11.1 g/dL (14.0-18.0); Immature Granulocyte Absolute 0.07 K/mm3 (0.00-0.031); Immature Granulocyte Percent A 0.6 % (0-0.5); Lymphocytes Absolute Auto 0.51 K/mm3 (0.9-3.2); Lymphocytes Percent Auto 4.7 % (18.3-44.2); Mean Corpuscular HGB Conc 34.8 g/dl (32-36); Mean Corpuscular Hemoglobin 30.7 pg (26-34); Mean Corpuscular Volume 88.1 fl (80-100); Mean Platelet Volume 10.9 fl (7.4-10.4); Monocytes Absolute Auto 0.5 K/mm3 (0.1-0.6); Monocytes Percent Auto 4.8 % (2.6-8.5); Neutrophils Absolute Auto 9.8 K/mm3 (1.3-6.7); Neutrophils Percent Auto 89.6 % (45.5-73.1); Platelet Count Result 144 k/mm3 (150-375); Red Blood Count 3.62 M/mm3 (4.6-6.20); Red Cell Distribution Width 14.3 % (11.5-14.5); White Blood Count 10.9 K/mm3 (4.5-10.0)
[2020-05-17 05:10] LABS: Anion Gap 7 mmol/L (8-16); Blood Urea Nitrogen 18 mg/dL (9-20); Carbon Dioxide 22 mmol/L (22-30); Chloride 106 mmol/L (98-107); Estimated CRCL calculation 113 ml/min; Estimated Glomerular Filt Rate > 60; Glucose 191 mg/dL (75-110); Potassium 3.2 mmol/L (3.4-5.0); Sodium 135 mmol/L (137-145)
[2020-05-17] MEDS: HYDROCORTISONE SODIUM SUCCINATE 100 MG/2 ML VIAL 50 MG IV PUSH ×3 (05:22→21:05)
[2020-05-17] MEDS: ENOXAPARIN 40 MG/0.4 ML SYRINGE SUB-Q (08:51)
[2020-05-17] MEDS: POTASSIUM CHLORIDE 20 MEQ TABLET 40 MEQ PO ×2 (08:51→16:32)
[2020-05-17] MEDS: METOPROLOL TARTRATE 50 MG TAB PO ×3 (08:51→21:06)
[2020-05-17] MEDS: COLLAGENASE OINT 30 GM TUBE 1 APPLIC TOPICAL (08:51)
[2020-05-17 09:08] LABS: Glucose Point of Care 198 (65-105)
--- NOTE | 2020-05-17 10:08 | PM.PNCARD ---
Progress Note: A&P Assessment and Plan (1) Paroxysmal atrial fibrillation with rapid ventricular response: Code(s): I48.0 - Paroxysmal atrial fibrillation Status: Acute Assessment and Plan: Has post-op a fib in past, on amio inthe past, but maintained NSR for quite some time. Back in a fib RVR 2nd acute illness. After IV fluids, looks like BP can tolerate increasing cardizem to 10 mg/hr. No bleeding issues; DC IV metoprolol. increase metoprolol tartrate to 50 mg p.o. Q 8. Furosemide 40 mg IV x1. KCl 40 mEq p.o. x1 (2) Severe sepsis: Code(s): A41.9 - Sepsis, unspecified organism; R65.20 - Severe sepsis without septic shock Status: Acute Assessment and Plan: Septic with elevated lactic acid on admission. On antibiotics for probable UTI (indwelling Fernandez), possible pneumonia, ruling out COVID. (3) History of aortic valve replacement with bioprosthetic valve: Code(s): Z95.3 - Presence of xenogenic heart valve Status: Acute Assessment and Plan: Bioprosthetic aortic valve replacement in 2017. Echo in March 2020 showed normal valve function. If blood cultures are positive will need to consider endocarditis. (4) QT prolongation: Code(s): R94.31 - Abnormal electrocardiogram [ECG] [EKG] Status: Acute Assessment and Plan: still prolonged Subjective Date/time seen: 05/17/20 10:08 Interval history: 79yo male with hx of transverse myelitis, DM and chronic indwelling Fernandez here for confusion and found to have severe sepsis. Date of [id number]/17/2020: no chest pain with some shortness of breath Review of Systems Review of Systems: ROS unobtainable: Yes unobtainable due to medical condition Constitutional: Constitutional: Reports fatigue and Reports weakness Eyes: Eyes: Reports no additional eye complaints ENT: Denies epistaxis Cardiovascular: Cardiovascular: Denies chest pain, Reports leg edema, Reports palpitations and Reports dyspnea Respiratory: Respiratory: Denies chest congestion and Reports dyspnea Gastrointestinal: Gastrointestinal: Denies abdominal pain and Denies hematochezia Genitourinary: Genitourinary: Denies hematuria Musculoskeletal: Musculoskeletal: Reports no additional musculoskeletal complaints Integumentary/Breasts: Skin/Breast: Reports erythema (RN repports macerated skin buttock) Neurologic: Reports Abnormal speech present, Reports behavioral changes, Reports confusion and Reports weakness Psychiatric: Psychiatric: Reports behavioral changes and Reports confusion Endocrine: Endocrine: Reports fatigue and Reports palpitations Exam Narrative: Exam Narrative: Ill-appearing white male who is confused, mildly tachypneic but not require O2, in the ACU. Const: General: in distress mild and confusion Orientation/consciousness: confusion HENMT: General nose exam: no epistaxis Eyes: General: appearance normal, both eyes and all related structures Neck: Neck: supple Resp: Effort & Inspection: abnormal respiratory effort ( Mild tachypnea) Cardio: Rate: tachycardic Rhythm: abnormal rhythm irregularly irregular Urinary Catheter: Urinary Catheter: patent and draining and urine dark Skin: Wounds: wounds noted (RN reports skin maceration buttock) Neuro: General: confusion Cognition (Neuro): normal cognition (very confused) Speech: Abnormal speech present Extrem: General: edema ( 1+ LE edema) Psych: Mental Status: mental status grossly abnormal and other ( confused) Objective Data Vital Signs Vital Signs: Vital Signs - 24 hr 05/16/20 12:00 05/16/20 12:09 05/16/20 12:23 Temperature 36.3 C L Pulse Rate 90 82 88 Respiratory Rate 23 H Blood Pressure 135/92 H Pulse Oximetry 100 05/16/20 13:48 05/16/20 13:55 05/16/20 14:00 Temperature Pulse Rate 85 81 Respiratory Rate 22 H 22 H Blood Pressure Pulse Oximetry
[2020-05-17] MEDS: FUROSEMIDE INJ 40 MG/4 ML VIAL IV PUSH (11:07)
[2020-05-17 12:36] LABS: Glucose Point of Care 218 (65-105)
[2020-05-17] MEDS: INSULIN ASPART (*BKC) 100 UNITS/ML SUB-Q (12:43)
--- NOTE | 2020-05-17 13:20 | WPDINFPN2 ---
Progress Note: A&P Assessment and Plan (1) Staphylococcus aureus bacteremia with sepsis: Code(s): A41.01 - Sepsis due to Methicillin susceptible Staphylococcus aureus Status: Acute Assessment and Plan: MRSA bacteremia with infection, prosthetic valve REC Vanc extended IV. Will need EVELYN when Cardiology agrees Subjective Date/time seen: 05/17/20 13:20 Objective Data Vital Signs Vital Signs: Vital Signs - 24 hr 05/16/20 13:48 05/16/20 13:55 05/16/20 14:00 Temperature Pulse Rate 85 81 Respiratory Rate 22 H 22 H Blood Pressure Pulse Oximetry 05/16/20 16:00 05/16/20 17:20 05/16/20 18:00 Temperature 36.4 C L Pulse Rate 85 85 83 Respiratory Rate 20 Blood Pressure 129/88 Pulse Oximetry 100 05/16/20 19:55 05/16/20 19:57 05/16/20 20:00 Temperature 36.6 C Pulse Rate 89 113 H 116 H Respiratory Rate 26 H 26 H 20 Blood Pressure 128/67 Pulse Oximetry 95 97 97 05/16/20 20:05 05/16/20 20:48 05/16/20 22:00 Temperature Pulse Rate 125 H 116 H 102 H Respiratory Rate 20 Blood Pressure Pulse Oximetry 05/16/20 23:13 05/17/20 00:00 05/17/20 02:00 Temperature 36.7 C Pulse Rate 116 H 86 102 H Respiratory Rate 20 20 Blood Pressure 103/67 Pulse Oximetry 97 97 05/17/20 02:24 05/17/20 02:29 05/17/20 04:00 Temperature 36.6 C Pulse Rate 105 H 95 106 H Respiratory Rate 24 H 24 H 18 Blood Pressure 116/80 Pulse Oximetry 97 05/17/20 06:00 05/17/20 08:00 05/17/20 08:27 Temperature 36.9 C Pulse Rate 135 H 102 H 99 Respiratory Rate 24 H 22 H Blood Pressure 151/86 H Pulse Oximetry 96 05/17/20 08:30 05/17/20 08:32 05/17/20 08:51 Temperature Pulse Rate 99 99 106 H Respiratory Rate 22 H Blood Pressure Pulse Oximetry 97 05/17/20 09:58 05/17/20 12:00 Temperature 36.8 C Pulse Rate 85 105 H Respiratory Rate 24 H Blood Pressure 158/98 H Pulse Oximetry 100 Intake/Output Intake/Output: Intake & Output 05/14/20 05/15/20 05/16/20 05/17/20 23:59 23:59 23:59 23:59 Intake Total 3091 3928 2310 740 Output Total 800 1550 1750 900 Balance 2291 1758 560 -160 Meds/Results Medications: Active Medications Generic Name Dose Route Start Last Admin Trade Name Freq PRN Reason Stop Dose Admin Apixaban 5 mg 05/14/20 21:00 05/15/20 11:52 Eliquis PO Not Given Q12HR STALIN Collagenase 1 applic 05/15/20 09:00 05/17/20 08:51 Santyl Oint TOPICAL 1 applic DAILY STALIN Administration Dextrose 12.5 gm 05/14/20 00:48 Dextrose 50% Syringe IV PUSH PRN PRN Hypoglycemia Protocol Enoxaparin Sodium 40 mg 05/16/20 09:00 05/17/20 08:51 Lovenox SUB-Q 40 mg DAILY STALIN Administration Glucagon 1 mg 05/14/20 00:48 Glucagon For Inj IM PRN PRN Hypoglycemia Protocol Glucose 15 gm 05/14/20 00:48 Glutose 15 PO PRN PRN Hypoglycemia Protocol Hydrocortisone Sodium Succinate 50 mg 05/14/20 22:00 05/17/20 05:22 Solu-Cortef IV PUSH 50 mg Q8HR STALIN Administration Ceftriaxone Sodium/Dextrose 1 gm in 50 mls @ 100 mls/hr 05/14/20 21:00 05/16/20 21:12 Rocephin 1 Gm/D5w 50 Ml IVPB Infused DAILY@2100 STALIN Infusion Dextrose 1,000 mls @ 100 mls/hr 05/14/20 00:48 Dextrose 5% 1,000 Ml IVPB PRN PRN Hypoglycemia Protocol Vancomycin HCl 1,750 mg in 500 mls @ 250 mls/hr 05/14/20 22:00 05/17/20 11:04 Vancomycin 1,750 Mg/D5w 500 Ml IVPB Infused Q12H STALIN Infusion Insulin Aspart 3 - 6 units 05/14/20 08:00 05/17/20 12:43 Novolog SUB-Q 3 units TIDWM STALIN Administration Protocol Levalbuterol HCl 1.25 mg 05/15/20 14:00 05/17/20 08:27 Xopenex 1.25 Mg/0.5 Ml INHALATION 1.25 mg Q6HRT STALIN Administration Metoprolol Tartrate 50 mg 05/17/20 15:00 Lopressor PO Q8HR STALIN Miconazole Nitrate 1 applic 05/15/20 09:00 05/17/20 08:51 Aloe [place] TOPICAL 1 applic Q12HR STALIN Administration
--- NOTE | 2020-05-17 15:41 | CONS_ITS ---
DATE OF CONSULTATION: 05/17/2020 REASON FOR CONSULTATION: Bacteremia. HISTORY OF PRESENT ILLNESS: The patient is a 79-year-old male who cannot provide much medical history due to delirium. He has a chronic Fernandez catheter apparently necessary due to neurogenic bladder and also outlet obstruction. He was brought to the hospital on May 13 with confusion. He was febrile in the emergency room. He has been given ceftriaxone and vancomycin and remains on those now; vancomycin is day 5. The patient also has chronic hearing loss. He has remained confused. His daughter is at the bedside and notes that the mental status changes were of acute onset, though he does have diminished mobility due to previous transverse myelitis and is on chronic steroids as a result. CURRENT MEDICATIONS: He is on hydrocortisone IV, customary dexamethasone 2 mg daily. Also was given ciprofloxacin by Dr. Paz due to concern over catheter-associated UTI, just prior to admission. The latter is now on hold. He is also on hydrocodone at home. ALLERGIES: NONE KNOWN. HABITS: No tobacco. No alcohol. SOCIAL HISTORY: His unfortunately is not in the best of health. They live in [place]. He is a retired educator. FAMILY HISTORY: Diabetes, hypertension, COPD. PAST MEDICAL HISTORY: Basal cell carcinoma of the nose, lumbar decompression in 2015, TURP in 2019, lumbar fusion in 2018, inguinal hernia repair, cataracts, left knee arthroplasty, appendectomy, tissue aortic valve replacement in 08/2017. He also has known diabetes mellitus, previous TIA, peripheral neuropathy, PAF, osteoarthritis, hypertension, hyperlipidemia, depression, anemia, and aortic stenosis for which the surgery was needed. REVIEW OF SYSTEMS: 14-point review attempted, not obtainable in a meaningful fashion due to delirium. PHYSICAL EXAMINATION: GENERAL: This is an elderly male who appears his actual age. He appears ill. No respiratory distress. VITAL SIGNS: 39.3 on admission, febrile the rest of the day and on hospital day #2 up to 38.6, has been afebrile 3 days. 105, 24, 158/98, he is on room air 100%. SKIN: Several abrasions and superficial lacerations over the distal and mid legs. One on the right mid hong is open approximately 0.5 cm deep, approximately 3 cm in length. No surrounding cellulitis. NODES: No cervical adenopathy. EENT: Conjunctivae clear. Pupils equal, round, and reactive to light. He has dentures upper and the oropharynx oral mucosa normal. No paranasal sinus erythema, edema or tenderness. NECK: Without meningismus, mass, thyromegaly, or tracheal deviation, normal contour. LUNGS: Clear to auscultation and percussion on tidal respirations. BACK: He has no spinal tenderness apparent. CARDIAC: Regular rate and rhythm. He has a grade 1/6 systolic flow murmur, left upper sternal border. No heaves. PMI is not displaced. ABDOMEN: Obese, nontender. No mass. No organomegaly. GENITOURINARY: He has no scrotal edema. He has a Fernandez catheter in place draining clear yellow urine. No sediment. EXTREMITIES: 3+ pitting edema on the right and slightly less on the left. No clubbing or cyanosis. No splinter hemorrhages. NEUROLOGIC: He is awake, responds to questions nonsensically, is oriented x0. Normal muscle tone and motor strength, all 4s. LABORATORY DATA: Blood cultures May 13, 11/07 sets MRSA. Urine culture same organism. His YUMIKO equal 1 for vancomycin. Urine culture from March had Klebsiella pneumoniae. Blood cultures March 22 final, no growth. His blood cultures have also been repeated here last evening. No growth after a short incubation. His white blood cell count normal on admission, 10.9 today, hemoglobin 11.1, platelets are 144. D-dimer is high. His blood gases, 7.49, 2
[2020-05-17 17:22] LABS: Glucose Point of Care 133 (65-105)
--- NOTE | 2020-05-17 17:28 | PM.IMPN ---
Progress Note: A&P Assessment and Plan (1) Severe sepsis: Code(s): A41.9 - Sepsis, unspecified organism; R65.20 - Severe sepsis without septic shock Status: Acute Assessment and Plan: Severe sepsis with septicemia. Present on admission with fever, tachycardia, metabolic encephalopathy and lactic acidosis. Due to UTI and/or pneumonia. Blood cultures and urine cultures all growing Staph aureus. Started on Rocephin and Doxycycline with Vanco added 05/14/20. Lactic level normal now. Continue current IV abx with Vanc per ID . Repeat BCx pending. Probable EVELYN soon (2) UTI (urinary tract infection) due to urinary indwelling Fernandez catheter: Qualifiers: Indwelling urinary catheter type: indwelling urethral catheter Encounter type: initial encounter Qualified Code(s): T83.511A - Infection and inflammatory reaction due to indwelling urethral catheter, initial encounter; N39.0 - Urinary tract infection, site not specified Code(s): T83.511A - Infection and inflammatory reaction due to indwelling urethral catheter, initial encounter; N39.0 - Urinary tract infection, site not specified Status: Acute Assessment and Plan: Patient had a UTI in March that grew out Klebsiella pneumonia that was sensitive to most antibiotics. He was recently treated for testicular infection by Dr. Paz and was started on Cipro 05/10/2020. The patient's Fernandez catheter was changed while he was in the ER. UCx growing Staph aureus so could be the source of the infection (or possibly hematologic spread given the low colony count). ceftriaxone d/edson (3) Pneumonia: Qualifiers: Laterality: bilateral Lung location: unspecified part of lung Pneumonia type: due to unspecified organism Qualified Code(s): J18.9 - Pneumonia, unspecified organism Code(s): J18.9 - Pneumonia, unspecified organism Status: Acute Assessment and Plan: CXR showing mild opacities in the left mid and lower lung zone suspected of being PNA. COVID test was negative. Started on Rocephin and doxycycline. BCx positive so Vanco added. Minimal O2 requirement but CXR looks worse. Add nebs since COVID negative. CPT. Still could be pulmonary edema given the BNP 2200. Lasix given once. Stopped IVF.05/15 and ceftriaxone 05/17 (4) Paroxysmal atrial fibrillation with rapid ventricular response: Code(s): I48.0 - Paroxysmal atrial fibrillation Status: Acute Assessment and Plan: No evidence that this is paroxysmal so suspect this is new onset related to the sepsis. Echo in March showing EF 70% with grade I diastolic dysfunction. He was started on Diltiazem 5mg/hour and has required adjustment to 15mg/hr. He is still tachycardic so one dose of IV Lopressor given. Cardiology following. Amiodarone drip started and rate better 05/16.and transitioning to po Continue tele. (5) Altered mental status: Qualifiers: Altered mental status type: unspecified Qualified Code(s): R41.82 - Altered mental status, unspecified Code(s): R41.82 - Altered mental status, unspecified Status: Acute Assessment and Plan: Patient with toxic encephalopthy related to above. TSH okay. No CT brain so will order this now that he is more stable. CT brain showing no acute findings. ABG 7.48//. Patient becoming more awake. Suspect should improve with continued treatment of his infectin. (6) History of aortic valve replacement with bioprosthetic valve: Code(s): Z95.3 - Presence of xenogenic heart valve Status: Acute Assessment and Plan: Patient had a bioprosthetic aortic valve replacement in 2016. Echo in March 2020 showed normal aortic valve function. Consider repeating Echo as a EVELYN given the positive BCx. cardiology following and will decide (7) QT prolongation: Code(s): R94.31 - Abnormal electrocardiogram [ECG] [EKG] Status: Acute Assessment an
[2020-05-17 20:43] LABS: Glucose Point of Care 184 (65-105)
[2020-05-18] VITALS (31 sets, daily range): BP systolic 113–148; BP diastolic 64–83; PULSE 60–119; RESP 18–22; TEMP 36.1–36.6; O2SAT 94–99; BMI 11.0
[2020-05-18 05:12] LABS: Basophils Percent Auto 0.1 % (0.2-1.2); Eosinophils Percent Auto 0.1 % (0-4.4); Hematocrit 31.2 % (42.0-52.0); Hemoglobin 10.6 g/dL (14.0-18.0); Immature Granulocyte Absolute 0.15 K/mm3 (0.00-0.031); Immature Granulocyte Percent A 1.4 % (0-0.5); Lymphocytes Absolute Auto 0.44 K/mm3 (0.9-3.2); Mean Corpuscular Hemoglobin 30.2 pg (26-34); Mean Corpuscular Volume 88.9 fl (80-100); Mean Platelet Volume 10.6 fl (7.4-10.4); Monocytes Absolute Auto 0.5 K/mm3 (0.1-0.6); Monocytes Percent Auto 4.9 % (2.6-8.5); Neutrophils Absolute Auto 9.9 K/mm3 (1.3-6.7); Neutrophils Percent Auto 89.5 % (45.5-73.1); Platelet Count Result 173 k/mm3 (150-375); Red Blood Count 3.51 M/mm3 (4.6-6.20); Red Cell Distribution Width 14.2 % (11.5-14.5)
[2020-05-18] MEDS: HYDROCORTISONE SODIUM SUCCINATE 100 MG/2 ML VIAL 50 MG IV PUSH ×3 (05:23→21:09)
[2020-05-18] MEDS: METOPROLOL TARTRATE 50 MG TAB PO ×3 (05:24→21:10)
[2020-05-18 05:26] LABS: Anion Gap 6 mmol/L (8-16); Blood Urea Nitrogen 19 mg/dL (9-20); Calcium 8.1 mg/dL (8.4-10.2); Carbon Dioxide 24 mmol/L (22-30); Chloride 107 mmol/L (98-107); Estimated CRCL calculation 99 ml/min; Estimated Glomerular Filt Rate > 60; Glucose 232 mg/dL (75-110); Potassium 3.7 mmol/L (3.4-5.0); Sodium 137 mmol/L (137-145)
[2020-05-18 07:48] LABS: Glucose Point of Care 210 (65-105)
[2020-05-18] MEDS: ENOXAPARIN 40 MG/0.4 ML SYRINGE SUB-Q (08:52)
[2020-05-18] MEDS: COLLAGENASE OINT 30 GM TUBE 1 APPLIC TOPICAL (08:52)
--- NOTE | 2020-05-18 10:32 | WPDANESEPP ---
Anes - Eval Pre Procedure Procedure: Operation Date: 05/18/20 11:30 Proposed Procedures p Trans Esophageal Echo - Jesus Sharp MD Date/Time: 05/18/20 10:32 Pre Op Diagnosis: Pneumonia, UTI, Confusion Patient Data Age: 79 Gender: M Height: 1.83 m Weight: 114.2 kg Last Vital Signs Temp 36.4 C L 05/18/20 07:21 Pulse 66 05/18/20 09:52 Resp 22 H 05/18/20 09:52 BP 114/69 05/18/20 07:21 Pulse Ox 94 05/18/20 09:46 Allergies Allergy/AdvReac Type Severity Reaction Status Date / Time No Known Allergies Allergy Verified 05/13/20 19:07 Home Medications Medication Instructions Recorded Confirmed Type atorvastatin 10 mg PO DAILY 03/22/20 05/14/20 History dexamethasone 2 mg PO DAILY 03/22/20 05/14/20 History furosemide 40 mg PO DAILY 03/22/20 05/14/20 History glimepiride 2 mg PO DAILY 03/22/20 05/14/20 History metformin 1,000 mg PO BID 03/22/20 05/14/20 History metoprolol succinate 50 mg PO DAILY 03/22/20 05/14/20 History potassium chloride 20 meq PO DAILY 03/22/20 05/14/20 History telmisartan 80 mg PO DAILY 03/22/20 05/14/20 History ciprofloxacin HCl [Cipro] 500 mg PO Q12H #10 tablet 03/26/20 05/14/20 Rx hydrocodone-acetaminophen [[place]] 1 tablet PO Q6H PRN #20 tablet 03/26/20 05/14/20 Rx collagenase clostridium histo. 1 applic TOPICAL DAILY 05/14/20 05/14/20 History [Santyl] Laboratory Tests 05/17/20 05/17/20 05/17/20 12:11 16:50 20:38 WBC RBC Hgb Hct MCV MCH MCHC RDW Plt Count MPV Immature Gran % (Auto) Neut % (Auto) Lymph % (Auto) Ellis % (Auto) Eos % (Auto) Baso % (Auto) Lymph # (Auto) Ellis # (Auto) Eos # (Auto) Baso # (Auto) Abs Immat Gran (auto) Absolute Neuts (auto) Absolute Nucleated RBC Nucleated RBC % Sodium Potassium Chloride Carbon Dioxide Anion Gap BUN Creatinine Estim Creat Clear Calc Estimated GFR Glucose POC Capillary Glucose 218 mg/dl H mg/dl 133 mg/dl H mg/dl 184 mg/dl H mg/dl (65-105) (65-105) (65-105) Calcium 05/18/20 05/18/20 05/18/20 04:24 04:25 07:27 WBC 11.0 K/mm3 H K/mm3 (4.5-10.0) RBC 3.51 M/mm3 L M/mm3 (4.6-6.20) Hgb 10.6 g/dL L g/dL (14.0-18.0) Hct 31.2 % L % (42.0-52.0) MCV 88.9 fl fl (80-100) MCH 30.2 pg pg (26-34) MCHC 34.0 g/dl g/dl (32-36) RDW 14.2 % % (11.5-14.5) Plt Count 173 k/mm3 k/mm3 (150-375) MPV 10.6 fl H fl (7.4-10.4) Immature Gran % (Auto) 1.4 % H % (0-0.5) Neut % (Auto) 89.5 % H % (45.5-73.1) Lymph % (Auto) 4.0 % L % (18.3-44.2) Ellis % (Auto) 4.9 % % (2.6-8.5) Eos % (Auto) 0.1 % % (0-4.4) Baso % (Auto) 0.1 % L % (0.2-1.2) Lymph # (Auto) 0.44 K/mm3 L K/mm3 (0.9-3.2) Ellis # (Auto) 0.5 K/mm3 K/mm3 (0.1-0.6) Eos # (Auto) 0.0 K/mm3 K/mm3 (0-0.3) Baso # (Auto) 0.0 K/mm3 K/mm3 (0.0-0.1) Abs Immat Gran (auto) 0.15 K/mm3 H K/mm3 (0.00-0.031) Absolute Neuts (auto) 9.9 K/mm3 H K/mm3 (1.3-6.7) Absolute Nucleated RBC 0.0 K/mm3 K/mm3 (0.0-0.012) Nucleated RBC % 0.0 % % (0.0-0.2) Sodium 137 mmol/L mmol/L (137-145) Potassium 3.7 mmol/L mmol/L (3.4-5.0) Chloride 107 mmol/L mmol/L (98-107) Carbon Dioxide 24 mmol/L mmol/L (22-30) Anion Gap 6 mmol/L L mmol/L (8-16) BUN 19 mg/dL mg/dL (9-20) Creatinine 0.70 mg/dL mg/dL (0.7-1.3) Estim Creat Clear Calc 99
[2020-05-18 11:00] LABS: Glucose Point of Care 254 (65-105)
--- NOTE | 2020-05-18 11:08 | P.PNAN_ITS ---
Anes - Eval Final PreProcedure Day of Procedure 05/18/20 11:08 Patient weight: obese Heart: regular rate and rhythm Lungs: clear to auscultation Airway: Mallampati scale class III Neurological: alert and oriented Last oral intake: >/= 8 hours ASA classification: IV Emergent: no Anesthetic plan: proceed Anesthesia type and monitoring: general GIVS and standard monitoring Informed Consent: The patient's anesthetic plan and its attendant risks and b enefits were discussed with the patient/family/POA. Questions were solicited and answers provided to the satisfaction of the patient/family/POA.
--- NOTE | 2020-05-18 11:14 | WPDMODSED ---
Moderate Sedation Note-Pt Data Patient Data Diagnosis: bactermia , AF Present Complaint: as above Procedure to be performed/Plan: EVELYN with possible cardioversion Allergies Allergy/AdvReac Type Severity Reaction Status Date / Time No Known Allergies Allergy Verified 05/13/20 19:07 Home Medications Medication Instructions Recorded Confirmed Type atorvastatin 10 mg PO DAILY 03/22/20 05/14/20 History dexamethasone 2 mg PO DAILY 03/22/20 05/14/20 History furosemide 40 mg PO DAILY 03/22/20 05/14/20 History glimepiride 2 mg PO DAILY 03/22/20 05/14/20 History metformin 1,000 mg PO BID 03/22/20 05/14/20 History metoprolol succinate 50 mg PO DAILY 03/22/20 05/14/20 History potassium chloride 20 meq PO DAILY 03/22/20 05/14/20 History telmisartan 80 mg PO DAILY 03/22/20 05/14/20 History ciprofloxacin HCl [Cipro] 500 mg PO Q12H #10 tablet 03/26/20 05/14/20 Rx hydrocodone-acetaminophen [[place]] 1 tablet PO Q6H PRN #20 tablet 03/26/20 05/14/20 Rx collagenase clostridium histo. 1 applic TOPICAL DAILY 05/14/20 05/14/20 History [Santyl] Current Medications: Active Medications Collagenase (Santyl Oint) 1 applic TOPICAL DAILY [facility] Last Admin: 05/18/20 08:52 Dose: 1 applic Documented by: Dextrose (Dextrose 50% Syringe) 12.5 gm IV PUSH PRN PRN; Protocol PRN Reason: Hypoglycemia Glucagon (Glucagon For Inj) 1 mg IM PRN PRN; Protocol PRN Reason: Hypoglycemia Glucose (Glutose 15) 15 gm PO PRN PRN; Protocol PRN Reason: Hypoglycemia Hydrocortisone Sodium Succinate (Solu-Cortef) 50 mg IV PUSH Q8HR [facility] Last Admin: 05/18/20 05:23 Dose: 50 mg Documented by: Dextrose (Dextrose 5% 1,000 Ml) 1,000 mls @ 100 mls/hr IVPB PRN PRN; Protocol PRN Reason: Hypoglycemia Vancomycin HCl (Vancomycin 1,750 Mg/D5w 500 Ml) 1,750 mg in 500 mls @ 250 mls/hr IVPB Q12H [facility] Last Admin: 05/18/20 09:00 Dose: 250 mls/hr Documented by: Insulin Aspart (Novolog) 3 - 6 units SUB-Q TIDWM [facility]; Protocol Last Admin: 05/18/20 08:29 Dose: Not Given Documented by: Levalbuterol HCl (Xopenex 1.25 Mg/0.5 Ml) 1.25 mg INHALATION Q6HRT [facility] Last Admin: 05/18/20 09:43 Dose: 1.25 mg Documented by: Metoprolol Tartrate (Lopressor) 50 mg PO Q8HR [facility] Last Admin: 05/18/20 05:24 Dose: 50 mg Documented by: Miconazole Nitrate (Aloe [place]) 1 applic TOPICAL Q12HR [facility] Last Admin: 05/18/20 08:52 Dose: 1 applic Documented by: Sedation/Anesthesia: No previous sedation/anesthesia problems (including family history). [facility] Past Medical History Medical History Aortic stenosis Status post bioprosthetic aortic valve replacement 2016. Basal cell carcinoma Excision of basal cell carcinoma from the left ala. Benign prostatic hyperplasia Chronic anemia Depression Dyslipidemia Essential hypertension Osteoarthritis Paroxysmal atrial fibrillation post-op and again in 05/2020 Peripheral neuropathy Transient ischemic attack 2014 Transverse myelitis (~01/2019) on chronic dexamethasone Type 2 diabetes mellitus Hemoglobin A1c was 9.3% in March 2019 and was 5.6% on 03/22/2020. Urinary retention Followed by Dr. Paz. Surgical History Surgical History History of aortic valve replacement with bioprosthetic valve History of aortic valve replacement with tissue graft (~08/2017) History of appendectomy History of arthroplasty of left knee (~2010) History of cataract extraction (~2014) History of inguinal hernia repair History of lumbar fusion (~2017) History of transurethral resection of prostate (~10/2018) Status post lumbar spine surgery for decompression of spinal cord (~2014) Status post surgical removal of malignant neoplasm of skin (~03/2018) Excision of basal cell carcinoma from the left ala. Family History Family History Sibling Diabetes mellitus Hypertension Mother Congestive heart brenda
--- NOTE | 2020-05-18 11:54 | PCOTNOTE ---
11:26 - Attempted to see patient this A.M. for skilled OT session. Patient was not present in room upon entry. Per [employer]ATION PROFESSIONAL, patient is in procedure. OT session not completed at this time.
--- NOTE | 2020-05-18 11:58 | WPDTEECHO ---
EVELYN TransEsophageal Echocardiogram Date of procedure: 05/18/20 Procedure Type: multiplanar transesophageal echocardiography with color flow and pulse wave Doppler Agitated saline study Diagnosis: bacteremia, atrial fibrillation Indications: bacteremia, atrial fibrillation Image Quality: good Findings: sedation was provided via anesthesia in the PACU. please see separate report Complications: None Blood loss: None Informed consent was signed by patient's daughter. Risks benefits alternatives have been discussed. After time-out was taken and after establishing continuous telemetry monitoring, pulse oxygenation and serial blood pressure assessments, sedation was given. Echo scope was advanced into place without difficulty. Multiplanar imaging was performed. Findings: Normal left ventricular size and function ejection fraction around 60 65%. The bioprosthetic aortic valve is normal in appearance. It is trileaflet without significant aortic insufficiency. There is no clear evidence of endocarditis, mass or abscess. Mitral valve is mildly thickened and with moderate mitral regurgitation. The tricuspid valve is normal in appearance and with mild tricuspid regurgitation. Pulmonic valve is not well visualized with trivial pulmonic insufficiency. Right ventricular size and function is normal. Normal right atrial size. Moderate left atrial enlargement. Atrial septum is intact without agitated saline or color flow evidence of shunting. Left atrial appendage is normal without mass or thrombus. Velocities, pulsed wave are around 75 centimeters/second. Aortic root measures 3.2 cm. Mild atherosclerotic disease seen within the aorta itself. There is no pericardial effusion. Conclusions: 1. Normal left ventricular size and function 2. Bioprosthetic aortic valve appears normal without clear evidence of mass /endocarditis. No significant aortic insufficiency. 3. Moderate mitral regurgitation 4. Mild tricuspid regurgitation 5. Moderate left atrial enlargement 6. Intact atrial septum with normal agitated saline study 7. mild aortic atherosclerotic disease
[2020-05-18] MEDS: FUROSEMIDE INJ 40 MG/4 ML VIAL IV PUSH (13:29)
[2020-05-18] MEDS: ENOXAPARIN 80 MG/0.8 ML SYRINGE 75 MG SUB-Q (13:29)
[2020-05-18] MEDS: INSULIN ASPART (*BKC) 100 UNITS/ML SUB-Q ×2 (13:31→18:30)
[2020-05-18 14:51] LABS: Glucose Point of Care 246 (65-105)
--- NOTE | 2020-05-18 15:59 | PM.IMPN ---
Progress Note: A&P Assessment and Plan (1) Severe sepsis: Code(s): A41.9 - Sepsis, unspecified organism; R65.20 - Severe sepsis without septic shock Status: Acute Assessment and Plan: Severe sepsis with septicemia. Present on admission with fever, tachycardia, metabolic encephalopathy and lactic acidosis. Due to UTI and/or pneumonia. Blood cultures and urine cultures all growing Staph aureus. Started on Rocephin and Doxycycline with Vanco added 05/14/20. Lactic level normal now. Continue current IV abx with Vanc per ID . Repeat BCx pending neg Probable EVELYN today no vegetation and normal valve with EF 60 (2) UTI (urinary tract infection) due to urinary indwelling Fernandez catheter: Qualifiers: Indwelling urinary catheter type: indwelling urethral catheter Encounter type: initial encounter Qualified Code(s): T83.511A - Infection and inflammatory reaction due to indwelling urethral catheter, initial encounter; N39.0 - Urinary tract infection, site not specified Code(s): T83.511A - Infection and inflammatory reaction due to indwelling urethral catheter, initial encounter; N39.0 - Urinary tract infection, site not specified Status: Acute Assessment and Plan: Patient had a UTI in March that grew out Klebsiella pneumonia that was sensitive to most antibiotics. He was recently treated for testicular infection by Dr. Paz and was started on Cipro 05/10/2020. The patient's Fernandez catheter was changed while he was in the ER. UCx growing Staph aureus so could be the source of the infection (or possibly hematologic spread given the low colony count). ceftriaxone d/edson 05/17 (3) Pneumonia: Qualifiers: Laterality: bilateral Lung location: unspecified part of lung Pneumonia type: due to unspecified organism Qualified Code(s): J18.9 - Pneumonia, unspecified organism Code(s): J18.9 - Pneumonia, unspecified organism Status: Acute Assessment and Plan: CXR showing mild opacities in the left mid and lower lung zone suspected of being PNA. COVID test was negative. Started on Rocephin and doxycycline. BCx positive so Vanco added. Minimal O2 requirement but CXR looks worse. Add nebs since COVID negative. CPT. Still could be pulmonary edema given the BNP 2200. Lasix given once. Stopped IVF.05/15 and ceftriaxone 05/17 (4) Paroxysmal atrial fibrillation with rapid ventricular response: Code(s): I48.0 - Paroxysmal atrial fibrillation Status: Acute Assessment and Plan: No evidence that this is paroxysmal so suspect this is new onset related to the sepsis. Echo in March showing EF 70% with grade I diastolic dysfunction. He was started on Diltiazem 5mg/hour and has required adjustment to 15mg/hr. He is still tachycardic so one dose of IV Lopressor given. Cardiology following. Amiodarone drip started and rate better 05/16.and transitioning to po and now rate control with beta rm Continue tele. (5) Altered mental status: Qualifiers: Altered mental status type: unspecified Qualified Code(s): R41.82 - Altered mental status, unspecified Code(s): R41.82 - Altered mental status, unspecified Status: Acute Assessment and Plan: Patient with toxic encephalopthy related to above. TSH okay. No CT brain so will order this now that he is more stable. CT brain showing no acute findings. ABG 7.48/. Patient becoming more awake. Suspect should improve with continued treatment of his infectin. (6) History of aortic valve replacement with bioprosthetic valve: Code(s): Z95.3 - Presence of xenogenic heart valve Status: Acute Assessment and Plan: Patient had a bioprosthetic aortic valve replacement in 2016. Echo in March 2020 showed normal aortic valve function. EVELYN today given the positive BCx. and as above no vegetation (7) QT prolongation: Code(s): R94.31 - Abnormal electrocardiogr
[2020-05-18 18:22] LABS: Glucose Point of Care 316 (65-105)
--- NOTE | 2020-05-18 20:59 | PC.NURSE ---
This patient was transferred from IMU 207 to [facility] at 2049 via hospital bed with all belongings. Report given to Omid CORRAL
[2020-05-18] MEDS: APIXABAN 5 MG TABLET PO (21:11)
[2020-05-18 21:23] LABS: Glucose Point of Care 263 (65-105)
[2020-05-19] VITALS (22 sets, daily range): BP systolic 112–153; BP diastolic 53–89; PULSE 59–86; RESP 16–24; TEMP 36.1–37.1; O2SAT 95–100; BMI 33.7; BMI 11.0
[2020-05-19] MEDS: HYDROCORTISONE SODIUM SUCCINATE 100 MG/2 ML VIAL 50 MG IV PUSH ×3 (05:15→21:42)
[2020-05-19] MEDS: METOPROLOL TARTRATE 50 MG TAB PO ×3 (05:15→21:44)
[2020-05-19 07:52] LABS: Glucose Point of Care 230 (65-105)
[2020-05-19] MEDS: APIXABAN 5 MG TABLET PO ×2 (08:01→21:42)
[2020-05-19] MEDS: INSULIN ASPART (*BKC) 100 UNITS/ML SUB-Q ×3 (08:01→16:39)
[2020-05-19] MEDS: COLLAGENASE OINT 30 GM TUBE 1 APPLIC TOPICAL (08:02)
[2020-05-19 09:03] LABS: Basophils Percent Auto 0.2 % (0.2-1.2); Eosinophils Percent Auto 0.1 % (0-4.4); Hematocrit 32.4 % (42.0-52.0); Immature Granulocyte Absolute 0.24 K/mm3 (0.00-0.031); Lymphocytes Absolute Auto 0.59 K/mm3 (0.9-3.2); Lymphocytes Percent Auto 4.9 % (18.3-44.2); Mean Corpuscular Hemoglobin 30.6 pg (26-34); Mean Corpuscular Volume 90.3 fl (80-100); Mean Platelet Volume 10.6 fl (7.4-10.4); Monocytes Absolute Auto 0.6 K/mm3 (0.1-0.6); Monocytes Percent Auto 4.6 % (2.6-8.5); Neutrophils Absolute Auto 10.6 K/mm3 (1.3-6.7); Neutrophils Percent Auto 88.2 % (45.5-73.1); Platelet Count Result 206 k/mm3 (150-375); Red Blood Count 3.59 M/mm3 (4.6-6.20); Red Cell Distribution Width 14.4 % (11.5-14.5)
[2020-05-19 09:14] LABS: Anion Gap 6 mmol/L (8-16); Blood Urea Nitrogen 19 mg/dL (9-20); Calcium 8.3 mg/dL (8.4-10.2); Carbon Dioxide 23 mmol/L (22-30); Chloride 107 mmol/L (98-107); Estimated CRCL calculation 114 ml/min; Estimated Glomerular Filt Rate > 60; Glucose 238 mg/dL (75-110); Potassium 3.7 mmol/L (3.4-5.0); Sodium 136 mmol/L (137-145)
[2020-05-19 09:54] LABS: Vancomycin Trough 21.2 ug/mL (10.0-20.0)
--- NOTE | 2020-05-19 10:01 | PC.NURSE ---
05/19/2020 1000 IVPB Vanc dose held d/t patients vanc trough of 21.2.
--- NOTE | 2020-05-19 11:05 | WPDINFPN2 ---
Progress Note: A&P Assessment and Plan (1) Staphylococcus aureus bacteremia with sepsis: Code(s): A41.01 - Sepsis due to Methicillin susceptible Staphylococcus aureus Status: Acute Assessment and Plan: 1. MRSA bacteremia with infection, still + 1/2 sets most recently 2. Bioprosthetic valve, EVELYN no vegetation 3. 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 Source of # 1 is either urine or skin REC Vanc #6, continue, target trough 15-20, PharmD dosing. Anticipate 4+ weeks. Redo BCs before deciding. Discussed with daughter at bedside. Subjective Date/time seen: 05/19/20 11:05 Interval history: still confused. No nausea, chills, sweats, dyspnea Exam Narrative: Exam Narrative: afebrile Const: General: no acute distress Eyes: General: appearance normal, both eyes and all related structures Resp: Effort & Inspection: normal respiratory effort Auscultation: clear to auscultation bilaterally Cardio: Rate: regular rate Rhythm: regular rhythm Heart sounds: no murmurs GI: Inspection: non-distended GI Palp: Yes Soft to palpation and No Tenderness to palpation present (GI) Urinary Catheter: Urinary Catheter: patent and draining Skin: General skin exam: no rashes or lesions noted Objective Data Vital Signs Vital Signs: Vital Signs - 24 hr 05/18/20 11:34 05/18/20 11:45 05/18/20 11:57 Temperature Pulse Rate 63 64 63 Respiratory Rate 22 H 21 H 21 H Blood Pressure 134/65 130/64 136/75 Pulse Oximetry 97 94 95 05/18/20 12:00 05/18/20 12:10 05/18/20 13:28 Temperature 36.1 C L Pulse Rate 62 72 69 Respiratory Rate 20 Blood Pressure 148/83 H Pulse Oximetry 96 05/18/20 14:00 05/18/20 15:01 05/18/20 15:08 Temperature Pulse Rate 63 69 60 Respiratory Rate 20 20 Blood Pressure Pulse Oximetry 05/18/20 15:18 05/18/20 16:00 05/18/20 18:00 Temperature 36.5 C Pulse Rate 68 67 80 Respiratory Rate 20 Blood Pressure 113/69 Pulse Oximetry 95 05/18/20 19:28 05/18/20 20:00 05/18/20 21:10 Temperature 36.6 C Pulse Rate 74 76 82 Respiratory Rate 18 Blood Pressure 121/64 Pulse Oximetry 97 05/18/20 23:15 05/18/20 23:19 05/18/20 23:29 Temperature Pulse Rate 67 64 Respiratory Rate 20 20 Blood Pressure Pulse Oximetry 99 05/19/20 00:00 05/19/20 03:56 05/19/20 04:00 Temperature 36.3 C L 36.1 C L Pulse Rate 76 59 L 75 Respiratory Rate 20 20 22 H Blood Pressure 140/75 151/75 H Pulse Oximetry 95 97 05/19/20 04:06 05/19/20 05:15 05/19/20 08:00 Temperature Pulse Rate 60 84 66 Respiratory Rate 20 Blood Pressure Pulse Oximetry 05/19/20 08:19 05/19/20 08:20 05/19/20 08:30 Temperature Pulse Rate 62 63 Respiratory Rate 24 H 22 H Blood Pressure Pulse Oximetry 96 05/19/20 10:00 Temperature 36.3 C L Pulse Rate 67 Respiratory Rate 19 Blood Pressure 153/89 H Pulse Oximetry 97 Intake/Output Intake/Output: Intake & Output 05/16/20 05/17/20 05/18/20 05/19/20 23:59 23:59 23:59 23:59 Intake Total 2310 1240 500 820 Output Total 1750 2000 1950 350 Balance 560 -372 -2895 470 Meds/Results Medications: Active Medications Generic Name Dose Route Start Last Admin Trade Name Freq PRN Reason Stop Dose Admin Apixaban 5 mg 05/18/20 23:00 05/19/20 08:01 Eliquis PO 5 mg Q12HR STALIN Administration Collagenase 1 applic 05/15/20 09:00 05/19/20 08:02 Santyl Oint TOPICAL 1 applic DAILY STALIN Administration Dextrose 12.5 gm 05/14/20 00:48 Dextrose 50% Syringe IV PUSH PRN PRN Hypoglycemia Protocol Glucagon 1 mg 05/14/20 00:48 Glucagon For Inj IM PRN PRN Hypoglycemia Protocol Glucose 15 gm 05/14/20 00:48 Glutose 15 PO PRN PRN Hypoglycemia Protocol Hydrocortisone Sodium Succinate 50 mg 05/14/20 22:00 05/19/20 05:15 Solu-Cortef IV PUSH 50 mg Q8HR STALIN Administration Dextrose 1,000 mls @ 100 mls/hr 05/14/20 00:48 Dextro
[2020-05-19 11:45] LABS: Glucose Point of Care 249 (65-105)
[2020-05-19] MEDS: ACETAMINOPHEN 325 MG TABLET 650 MG PO ×2 (11:49→23:30)
--- NOTE | 2020-05-19 11:53 | PM.PNCARD ---
Progress Note: A&P Assessment and Plan (1) Paroxysmal atrial fibrillation with rapid ventricular response: Code(s): I48.0 - Paroxysmal atrial fibrillation Status: Acute Assessment and Plan: Has post-op a fib in past, on amio inthe past, but maintained NSR for quite some time. Back in a fib RVR 2nd acute illness. off amiodarone. Continue metoprolol. In sinus rhythm. He is edematous go and will start him on furosemide 40 mg IV q.12 hours. Basic metabolic panel in the morning. Continue anticoagulation (2) Severe sepsis: Code(s): A41.9 - Sepsis, unspecified organism; R65.20 - Severe sepsis without septic shock Status: Acute Assessment and Plan: Septic with elevated lactic acid on admission. On antibiotics for probable UTI (indwelling Fernandez), possible pneumonia, ruling out COVID. (3) History of aortic valve replacement with bioprosthetic valve: Code(s): Z95.3 - Presence of xenogenic heart valve Status: Acute Assessment and Plan: Bioprosthetic aortic valve replacement in 2016. Echo in March 2020 showed normal valve function. No evidence of endocarditis noted by EVELYN (4) QT prolongation: Code(s): R94.31 - Abnormal electrocardiogram [ECG] [EKG] Status: Acute Assessment and Plan: still prolonged Subjective Date/time seen: 05/19/20 11:53 Interval history: 79yo male with hx of transverse myelitis, DM and chronic indwelling Fernandez here for confusion and found to have severe sepsis. Date of service 05/19/2020: Feels okay today. No shortness breath or chest pain. Edematous Review of Systems Review of Systems: ROS unobtainable: Yes unobtainable due to medical condition Constitutional: Constitutional: Reports fatigue and Reports weakness Eyes: Eyes: Reports no additional eye complaints ENT: Denies epistaxis Cardiovascular: Cardiovascular: Denies chest pain, Reports leg edema, Reports palpitations and Reports dyspnea Respiratory: Respiratory: Denies chest congestion and Reports dyspnea Gastrointestinal: Gastrointestinal: Denies abdominal pain and Denies hematochezia Genitourinary: Genitourinary: Denies hematuria Musculoskeletal: Musculoskeletal: Reports no additional musculoskeletal complaints Integumentary/Breasts: Skin/Breast: Reports erythema (RN repports macerated skin buttock) Neurologic: Reports Abnormal speech present, Reports behavioral changes, Reports confusion and Reports weakness Psychiatric: Psychiatric: Reports behavioral changes and Reports confusion Endocrine: Endocrine: Reports fatigue and Reports palpitations Exam Narrative: Exam Narrative: Ill-appearing white male who is confused, mildly tachypneic but not require O2, in the ACU. Const: General: in distress mild and confusion Orientation/consciousness: confusion HENMT: General nose exam: no epistaxis Eyes: General: appearance normal, both eyes and all related structures Neck: Neck: supple Resp: Effort & Inspection: abnormal respiratory effort ( Mild tachypnea) Cardio: Rate: regular rate Rhythm: regular rhythm Urinary Catheter: Urinary Catheter: patent and draining and urine dark Skin: Wounds: wounds noted (RN reports skin maceration buttock) Other: right foot is cool to touch Neuro: General: confusion Cognition (Neuro): normal cognition (very confused) Speech: Abnormal speech present Extrem: General: other ( 2-3 +bilateral lower extremity edema) Psych: Mental Status: mental status grossly abnormal and other ( confused) Objective Data Vital Signs Vital Signs: Vital Signs - 24 hr 05/18/20 11:57 05/18/20 12:00 05/18/20 12:10 Temperature 36.1 C L Pulse Rate 63 62 72 Respiratory Rate 21 H 20 Blood Pressure 136/75 148/83 H Pulse Oximetry 95 96 05/18/20 13:28 05/18/20 14:00 05/18/20 15:01 Temperature Pulse Rate 69 63 69 Respiratory Rate 20 Blood Pressure Pulse Oximetry 0
[2020-05-19] MEDS: FUROSEMIDE INJ 40 MG/4 ML VIAL IV PUSH ×2 (12:30→16:39)
--- NOTE | 2020-05-19 13:18 | PM.IMPN ---
Progress Note: A&P Assessment and Plan (1) Severe sepsis: Code(s): A41.9 - Sepsis, unspecified organism; R65.20 - Severe sepsis without septic shock Status: Acute Assessment and Plan: Severe sepsis with septicemia. Present on admission with fever, tachycardia, metabolic encephalopathy and lactic acidosis. Due to UTI and/or pneumonia. Blood cultures and urine cultures all growing Staph aureus. Started on Rocephin and Doxycycline with Vanco added 05/14/20. Lactic level normal now. Continue current IV abx with Vanc per ID . Repeat BCx still + from 05/16 and will repeat 05/19. EVELYN 05/18 no vegetation and normal valve with EF 60 (2) UTI (urinary tract infection) due to urinary indwelling Fernandez catheter: Qualifiers: Indwelling urinary catheter type: indwelling urethral catheter Encounter type: initial encounter Qualified Code(s): T83.511A - Infection and inflammatory reaction due to indwelling urethral catheter, initial encounter; N39.0 - Urinary tract infection, site not specified Code(s): T83.511A - Infection and inflammatory reaction due to indwelling urethral catheter, initial encounter; N39.0 - Urinary tract infection, site not specified Status: Acute Assessment and Plan: Patient had a UTI in March that grew out Klebsiella pneumonia that was sensitive to most antibiotics. He was recently treated for testicular infection by Dr. Paz and was started on Cipro 05/10/2020. The patient's Fernandez catheter was changed while he was in the ER. UCx growing Staph aureus so could be the source of the infection (or possibly hematologic spread given the low colony count). ceftriaxone d/edson 05/17 (3) Pneumonia: Qualifiers: Laterality: bilateral Lung location: unspecified part of lung Pneumonia type: due to unspecified organism Qualified Code(s): J18.9 - Pneumonia, unspecified organism Code(s): J18.9 - Pneumonia, unspecified organism Status: Acute Assessment and Plan: CXR showing mild opacities in the left mid and lower lung zone suspected of being PNA. COVID test was negative. Started on Rocephin and doxycycline. BCx positive so Vanco added. Minimal O2 requirement but CXR looks worse. Add nebs since COVID negative. CPT. Still could be pulmonary edema given the BNP 2200. Lasix given once and restarted by card today IV q 12h with increased edema. Stopped IVF.05/15 and ceftriaxone 05/17 (4) Paroxysmal atrial fibrillation with rapid ventricular response: Code(s): I48.0 - Paroxysmal atrial fibrillation Status: Acute Assessment and Plan: No evidence that this is paroxysmal so suspect this is new onset related to the sepsis. Echo in March showing EF 70% with grade I diastolic dysfunction. He was started on Diltiazem 5mg/hour and has required adjustment to 15mg/hr. He is still tachycardic so one dose of IV Lopressor given. Cardiology following. Amiodarone drip started and rate better 05/16.and transitioning to po and now rate control with beta rm Continue tele. and eliquis for anticoagulation (5) Altered mental status: Qualifiers: Altered mental status type: unspecified Qualified Code(s): R41.82 - Altered mental status, unspecified Code(s): R41.82 - Altered mental status, unspecified Status: Acute Assessment and Plan: Patient with toxic encephalopthy related to above. TSH okay. No CT brain so will order this now that he is more stable. CT brain showing no acute findings. ABG 7.48/. Patient becoming more lucid each day. oriented x 3 today (6) History of aortic valve replacement with bioprosthetic valve: Code(s): Z95.3 - Presence of xenogenic heart valve Status: Acute Assessment and Plan: Patient had a bioprosthetic aortic valve replacement in 2016. Echo in March 2020 showed normal aortic valve function. EVELYN 05/18 given the positive BCx. and as above no vegetation (7)
--- NOTE | 2020-05-19 14:05 | PCNSR ---
On 05/19/20, the student, Lex Tan, provided care and completed [facility] documentation on this patient. I have reviewed the student's documentation and agree with the findings.
[2020-05-19 16:45] LABS: Glucose Point of Care 249 (65-105)
[2020-05-19 22:09] LABS: Glucose Point of Care 307 (65-105)
[2020-05-20] VITALS (23 sets, daily range): BP systolic 127–161; BP diastolic 66–89; PULSE 59–98; RESP 16–22; TEMP 36.1–37.4; O2SAT 92–99
[2020-05-20] MEDS: METOPROLOL TARTRATE 50 MG TAB PO ×3 (05:25→21:21)
[2020-05-20] MEDS: HYDROCORTISONE SODIUM SUCCINATE 100 MG/2 ML VIAL 50 MG IV PUSH ×3 (05:26→21:21)
[2020-05-20 06:34] LABS: Basophils Percent Auto 0.2 % (0.2-1.2); Eosinophils Percent Auto 0.3 % (0-4.4); Hemoglobin 10.3 g/dL (14.0-18.0); Immature Granulocyte Absolute 0.32 K/mm3 (0.00-0.031); Lymphocytes Absolute Auto 0.68 K/mm3 (0.9-3.2); Lymphocytes Percent Auto 6.4 % (18.3-44.2); Mean Corpuscular HGB Conc 34.3 g/dl (32-36); Mean Corpuscular Hemoglobin 30.7 pg (26-34); Mean Corpuscular Volume 89.3 fl (80-100); Mean Platelet Volume 10.4 fl (7.4-10.4); Monocytes Absolute Auto 0.7 K/mm3 (0.1-0.6); Monocytes Percent Auto 6.2 % (2.6-8.5); Neutrophils Absolute Auto 8.9 K/mm3 (1.3-6.7); Neutrophils Percent Auto 83.9 % (45.5-73.1); Platelet Count Result 230 k/mm3 (150-375); Red Blood Count 3.36 M/mm3 (4.6-6.20); Red Cell Distribution Width 14.3 % (11.5-14.5); White Blood Count 10.6 K/mm3 (4.5-10.0)
[2020-05-20 06:54] LABS: Anion Gap 6 mmol/L (8-16); Blood Urea Nitrogen 18 mg/dL (9-20); Carbon Dioxide 26 mmol/L (22-30); Chloride 104 mmol/L (98-107); Estimated CRCL calculation 115 ml/min; Estimated Glomerular Filt Rate > 60; Glucose 262 mg/dL (75-110); Sodium 136 mmol/L (137-145)
[2020-05-20] MEDS: POTASSIUM CHLORIDE 20 MEQ TABLET 40 MEQ PO ×2 (07:56→16:29)
[2020-05-20] MEDS: INSULIN ASPART (*BKC) 100 UNITS/ML SUB-Q ×3 (07:57→16:35)
[2020-05-20] MEDS: APIXABAN 5 MG TABLET PO ×2 (07:59→21:19)
[2020-05-20] MEDS: ACETAMINOPHEN 325 MG TABLET 650 MG PO ×2 (07:59→21:22)
[2020-05-20] MEDS: COLLAGENASE OINT 30 GM TUBE 1 APPLIC TOPICAL (08:00)
[2020-05-20] MEDS: FUROSEMIDE INJ 40 MG/4 ML VIAL IV PUSH ×2 (08:00→16:29)
[2020-05-20 08:04] LABS: Glucose Point of Care 211 (65-105)
[2020-05-20 12:02] LABS: Glucose Point of Care 276 (65-105)
[2020-05-20 16:40] LABS: Glucose Point of Care 336 (65-105)
--- NOTE | 2020-05-20 17:54 | PM.IMPN ---
Progress Note: A&P Assessment and Plan (1) Severe sepsis: Code(s): A41.9 - Sepsis, unspecified organism; R65.20 - Severe sepsis without septic shock Status: Acute Assessment and Plan: Severe sepsis with septicemia. Present on admission with fever, tachycardia, metabolic encephalopathy and lactic acidosis. Due to UTI and/or pneumonia. Blood cultures and urine cultures all growing Staph aureus. Started on Rocephin and Doxycycline with Vanco added 05/14/20. Lactic level normal now. Continue current IV abx with Vanc per ID . Repeat BCx still + from 05/16 and will repeated today 05/20. EVELYN 05/18 no vegetation and normal valve with EF 60 (2) UTI (urinary tract infection) due to urinary indwelling Fernandez catheter: Qualifiers: Indwelling urinary catheter type: indwelling urethral catheter Encounter type: initial encounter Qualified Code(s): T83.511A - Infection and inflammatory reaction due to indwelling urethral catheter, initial encounter; N39.0 - Urinary tract infection, site not specified Code(s): T83.511A - Infection and inflammatory reaction due to indwelling urethral catheter, initial encounter; N39.0 - Urinary tract infection, site not specified Status: Acute Assessment and Plan: Patient had a UTI in March that grew out Klebsiella pneumonia that was sensitive to most antibiotics. He was recently treated for testicular infection by Dr. Paz and was started on Cipro 05/10/2020. The patient's Fernandez catheter was changed while he was in the ER. UCx growing Staph aureus so could be the source of the infection (or possibly hematologic spread given the low colony count). ceftriaxone d/edson 05/17 (3) Pneumonia: Qualifiers: Laterality: bilateral Lung location: unspecified part of lung Pneumonia type: due to unspecified organism Qualified Code(s): J18.9 - Pneumonia, unspecified organism Code(s): J18.9 - Pneumonia, unspecified organism Status: Acute Assessment and Plan: CXR showing mild opacities in the left mid and lower lung zone suspected of being PNA. COVID test was negative. Started on Rocephin and doxycycline. BCx positive so Vanco added. Minimal O2 requirement but CXR looks worse. Add nebs since COVID negative. CPT. Still could be pulmonary edema given the BNP 2200. Lasix restarted by card 05/19 IV q 12h with increased edema. Stopped IVF.05/15 and ceftriaxone 05/17 (4) Paroxysmal atrial fibrillation with rapid ventricular response: Code(s): I48.0 - Paroxysmal atrial fibrillation Status: Acute Assessment and Plan: No evidence that this is paroxysmal so suspect this is new onset related to the sepsis. Echo in March showing EF 70% with grade I diastolic dysfunction. He was started on Diltiazem 5mg/hour and has required adjustment to 15mg/hr. He is still tachycardic so one dose of IV Lopressor given. Cardiology following. Amiodarone drip started and rate better 05/16.and transitioning to po and now rate control with beta blockeronly Continue tele. and eliquis for anticoagulation (5) Altered mental status: Qualifiers: Altered mental status type: unspecified Qualified Code(s): R41.82 - Altered mental status, unspecified Code(s): R41.82 - Altered mental status, unspecified Status: Acute Assessment and Plan: Patient with toxic encephalopthy related to above. TSH okay. No CT brain so will order this now that he is more stable. CT brain showing no acute findings. ABG 7.48//. Patient becoming more lucid each day. oriented x 3 today (6) History of aortic valve replacement with bioprosthetic valve: Code(s): Z95.3 - Presence of xenogenic heart valve Status: Acute Assessment and Plan: Patient had a bioprosthetic aortic valve replacement in 2016. Echo in March 2020 showed normal aortic valve function. EVELYN 05/18 given the positive BCx. and as above no vegetation (7) QT
[2020-05-20] MEDS: ACYCLOVIR 5% OINTMENT 15 GM TUBE 1 APPLIC TOPICAL (21:19)
[2020-05-20] MEDS: INSULIN GLARGINE (*BKC) 100 UNITS/ML 10 UNITS SUB-Q (21:20)
[2020-05-20 21:56] LABS: Glucose Point of Care 311 (65-105)
--- NOTE | 2020-05-20 23:49 | P.PNCROSS_ITS ---
Event Note Event Note Event Note: The patient told the nurse that he did not want to live anymore but he did not have the courage to commit suicide himself. He stated that he needed assistance with this. He was asking the staff what he could do to get somebody to system with suicide. He stated that he knows of some states that could help him to assisted suicide. He also was wondering if he can get his to help with that. Said he does not have the courage to go on and does not have the courage to commit suicide himself. However stated that he did not want to go on with Life any further that he can no longer do a lot of things in the does not want to live like this anymore. We discussed hospice in the patient stated he is not in any discomfort he just cannot do the things that he has to in life and feels like he is useless. He does not want to live like this. He said he wants to go to state where they will assist with his suicide. I explained to him that I was trying to help him and that will have to move him to another floor for suicide watch. I validated his feelings and stated that I understood his situation however this is not a state where they use assisted suicide. I explained to him since he was having thoughts of suicide that we needed to put him on suicide precautions. The patient had tears in his eyes and just stated he does not want to live like this. I called the electrician supervisor airplane and put in the transfer orders to ICU for suicide precautions and will have to have c risis evaluate the patient. Patient would not be medically cleared for any type of inpatient mental treatment. However I feel that he would need some type of counseling and possibly medication to help him get through this.
[2020-05-21] VITALS (15 sets, daily range): BP systolic 137–162; BP diastolic 68–92; PULSE 67–112; RESP 16–25; TEMP 36.6–36.9; O2SAT 96–100; BMI 10.0
--- NOTE | 2020-05-21 00:31 | PC.NURSE ---
Notified Patients Rosi per telephone that we are transferring Francisco J to ICU 7 on suicide precautions. Patient has voiced that he wants to . He wants to know a good way to commit suicide. He said, I think I could get my to help me He stated, Would you want to live like this? I cant golf or do the things I enjoy I do not want to live like this I notified nursing snow removal supervisor and Janina Vicente. Pt's did state that he has been talking about suicide at home.
--- NOTE | 2020-05-21 00:54 | PC.NURSE ---
This patient, Francisco J Sanchez, was transferred to [ ICU 7] on 05/21/20 at 0054. Personal belongings sent with patient. Belongings list checked and signed with receiving [ ]. Report given to [Mary Beth CORRAL ]. Appropriate documentation sent with patient.
--- NOTE | 2020-05-21 01:10 | PC.NURSE ---
This patient, Francisco J Sanchez, was received from [ 256] on 05/21/20 at 0151. Personal belongings list checked and signed. Patient/family oriented to unit policies and routines
[2020-05-21] MEDS: ACETAMINOPHEN 325 MG TABLET 650 MG PO (03:11)
[2020-05-21] MEDS: HYDROCORTISONE SODIUM SUCCINATE 100 MG/2 ML VIAL 50 MG IV PUSH ×3 (06:28→20:17)
[2020-05-21] MEDS: METOPROLOL TARTRATE 50 MG TAB PO ×3 (06:28→20:17)
[2020-05-21 08:51] LABS: Basophils Percent Auto 0.2 % (0.2-1.2); Eosinophils Absolute Auto 0.1 K/mm3 (0-0.3); Eosinophils Percent Auto 0.5 % (0-4.4); Hematocrit 32.1 % (42.0-52.0); Hemoglobin 10.8 g/dL (14.0-18.0); Immature Granulocyte Absolute 0.52 K/mm3 (0.00-0.031); Immature Granulocyte Percent A 4.2 % (0-0.5); Lymphocytes Absolute Auto 0.81 K/mm3 (0.9-3.2); Lymphocytes Percent Auto 6.5 % (18.3-44.2); Mean Corpuscular HGB Conc 33.6 g/dl (32-36); Mean Corpuscular Hemoglobin 30.3 pg (26-34); Mean Corpuscular Volume 90.2 fl (80-100); Mean Platelet Volume 10.3 fl (7.4-10.4); Monocytes Absolute Auto 0.7 K/mm3 (0.1-0.6); Monocytes Percent Auto 5.3 % (2.6-8.5); Neutrophils Absolute Auto 10.4 K/mm3 (1.3-6.7); Neutrophils Percent Auto 83.3 % (45.5-73.1); Platelet Count Result 260 k/mm3 (150-375); Red Blood Count 3.56 M/mm3 (4.6-6.20); Red Cell Distribution Width 14.3 % (11.5-14.5); White Blood Count 12.5 K/mm3 (4.5-10.0)
[2020-05-21 08:54] LABS: Anion Gap 5 mmol/L (8-16); Blood Urea Nitrogen 18 mg/dL (9-20); Calcium 8.3 mg/dL (8.4-10.2); Carbon Dioxide 29 mmol/L (22-30); Chloride 102 mmol/L (98-107); Estimated CRCL calculation 111 ml/min; Estimated Glomerular Filt Rate > 60; Glucose 201 mg/dL (75-110); Potassium 3.4 mmol/L (3.4-5.0); Sodium 136 mmol/L (137-145)
[2020-05-21] MEDS: FUROSEMIDE INJ 40 MG/4 ML VIAL IV PUSH ×2 (10:10→17:10)
[2020-05-21] MEDS: ESCITALOPRAM OXALATE 10 MG TABLET PO (10:35)
[2020-05-21] MEDS: ACYCLOVIR 5% OINTMENT 15 GM TUBE 1 APPLIC TOPICAL ×5 (10:36→20:21)
[2020-05-21] MEDS: FUROSEMIDE 40 MG TABLET PO (10:36)
[2020-05-21] MEDS: APIXABAN 5 MG TABLET PO ×2 (10:37→20:17)
[2020-05-21] MEDS: COLLAGENASE OINT 30 GM TUBE 1 APPLIC TOPICAL ×2 (10:38→20:16)
--- NOTE | 2020-05-21 11:44 | PCPTNOTE ---
Pt downgraded in terms of floor, but his medical/functional status not likely to have changed...patient was transferred to ICU due to suicidal ideations.
[2020-05-21] MEDS: INSULIN ASPART (*BKC) 100 UNITS/ML SUB-Q ×2 (12:28→17:10)
[2020-05-21 12:39] LABS: Glucose Point of Care 243 (65-105)
[2020-05-21 17:06] LABS: Glucose Point of Care 204 (65-105)
--- NOTE | 2020-05-21 17:14 | PM.IMPN ---
Progress Note: A&P Assessment and Plan (1) Severe sepsis: Code(s): A41.9 - Sepsis, unspecified organism; R65.20 - Severe sepsis without septic shock Status: Acute Assessment and Plan: Severe sepsis with septicemia. Present on admission with fever, tachycardia, metabolic encephalopathy and lactic acidosis. Due to UTI and/or pneumonia. Blood cultures and urine cultures all growing Staph aureus. Started on Rocephin and Doxycycline with Vanco added 05/14/20. Lactic level normal now. Continue current IV abx with Vanc per ID . Repeat BCx still + from 05/16 and + 05/20. last vanc level 21 and repeat this pm poor prognosis with persistant + BC EVELYN 05/18 no vegetation and normal valve with EF 60 (2) UTI (urinary tract infection) due to urinary indwelling Fernandez catheter: Qualifiers: Indwelling urinary catheter type: indwelling urethral catheter Encounter type: initial encounter Qualified Code(s): T83.511A - Infection and inflammatory reaction due to indwelling urethral catheter, initial encounter; N39.0 - Urinary tract infection, site not specified Code(s): T83.511A - Infection and inflammatory reaction due to indwelling urethral catheter, initial encounter; N39.0 - Urinary tract infection, site not specified Status: Acute Assessment and Plan: Patient had a UTI in March that grew out Klebsiella pneumonia that was sensitive to most antibiotics. He was recently treated for testicular infection by Dr. Paz and was started on Cipro 05/10/2020. The patient's Fernandez catheter was changed while he was in the ER. UCx growing Staph aureus so could be the source of the infection (or possibly hematologic spread given the low colony count). ceftriaxone d/edson 05/17 (3) Pneumonia: Qualifiers: Laterality: bilateral Lung location: unspecified part of lung Pneumonia type: due to unspecified organism Qualified Code(s): J18.9 - Pneumonia, unspecified organism Code(s): J18.9 - Pneumonia, unspecified organism Status: Acute Assessment and Plan: CXR showing mild opacities in the left mid and lower lung zone suspected of being PNA. COVID test was negative. Started on Rocephin and doxycycline. BCx positive so Vanco added. Minimal O2 requirement but CXR looks worse. Add nebs since COVID negative. CPT. Still could be pulmonary edema given the BNP 2200. Lasix restarted by card 05/19 IV q 12h with increased edema. Stopped IVF.05/15 and ceftriaxone 05/17 recheck xray am (4) Paroxysmal atrial fibrillation with rapid ventricular response: Code(s): I48.0 - Paroxysmal atrial fibrillation Status: Acute Assessment and Plan: No evidence that this is paroxysmal so suspect this is new onset related to the sepsis. Echo in March showing EF 70% with grade I diastolic dysfunction. He was started on Diltiazem 5mg/hour and has required adjustment to 15mg/hr. He is still tachycardic so one dose of IV Lopressor given. Cardiology following. Amiodarone drip started and rate better 05/16.and transitioning to po and now rate control with beta rm only Continue tele. and restarted eliquis for anticoagulation 05/18 (5) Altered mental status: Qualifiers: Altered mental status type: unspecified Qualified Code(s): R41.82 - Altered mental status, unspecified Code(s): R41.82 - Altered mental status, unspecified Status: Acute Assessment and Plan: Patient with toxic encephalopthy related to above. TSH okay. CT brain showing no acute findings. ABG 7.48//. Patient becoming more lucid each day. oriented x 3 today but still periods of confusion (6) History of aortic valve replacement with bioprosthetic valve: Code(s): Z95.3 - Presence of xenogenic heart valve Status: Acute Assessment and Plan: Patient had a bioprosthetic aortic valve replacement in 2016. Echo in March 2020 showed normal aortic valve function. EVELYN 05/06
[2020-05-21 20:14] LABS: Glucose Point of Care 270 (65-105)
[2020-05-21] MEDS: INSULIN GLARGINE (*BKC) 100 UNITS/ML 10 UNITS SUB-Q (20:15)
[2020-05-21 20:41] LABS: Vancomycin Trough 10.5 ug/mL (10.0-20.0)
[2020-05-22] VITALS (21 sets, daily range): BP systolic 137–151; BP diastolic 69–90; PULSE 72–101; RESP 18–35; TEMP 36.9–37.5; O2SAT 94–98; BMI 10.0
[2020-05-22 04:46] LABS: Estimated CRCL calculation 111 ml/min; Estimated Glomerular Filt Rate > 60
[2020-05-22] MEDS: METOPROLOL TARTRATE 50 MG TAB PO ×3 (05:14→20:12)
[2020-05-22] MEDS: HYDROCORTISONE SODIUM SUCCINATE 100 MG/2 ML VIAL 50 MG IV PUSH ×2 (05:14→13:00)
[2020-05-22 07:59] LABS: Anion Gap 4 mmol/L (8-16); Blood Urea Nitrogen 19 mg/dL (9-20); Calcium 7.9 mg/dL (8.4-10.2); Carbon Dioxide 32 mmol/L (22-30); Chloride 99 mmol/L (98-107); Estimated CRCL calculation 111 ml/min; Estimated Glomerular Filt Rate > 60; Glucose 272 mg/dL (75-110); Potassium 2.6 mmol/L (3.4-5.0); Sodium 135 mmol/L (137-145)
[2020-05-22] MEDS: INSULIN GLARGINE (*BKC) 100 UNITS/ML SUB-Q (08:01)
[2020-05-22] MEDS: ACYCLOVIR 5% OINTMENT 15 GM TUBE 1 APPLIC TOPICAL ×5 (08:02→20:12)
[2020-05-22] MEDS: INSULIN ASPART (*BKC) 100 UNITS/ML SUB-Q ×3 (08:02→16:46)
[2020-05-22] MEDS: ESCITALOPRAM OXALATE 10 MG TABLET PO (08:02)
[2020-05-22] MEDS: APIXABAN 5 MG TABLET PO ×2 (08:02→20:12)
[2020-05-22] MEDS: FUROSEMIDE INJ 40 MG/4 ML VIAL IV PUSH ×2 (08:03→16:45)
--- NOTE | 2020-05-22 08:09 | WPDINFPN2 ---
Progress Note: A&P Assessment and Plan (1) Staphylococcus aureus bacteremia with sepsis: Code(s): A41.01 - Sepsis due to Methicillin susceptible Staphylococcus aureus Status: Acute Assessment and Plan: 1. MRSA bacteremia with infection, 05/20 BCs still + 2. 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 Source of # 1 is either urine or skin 4. Suicidal ideation REC Vanc #9, continue, target trough 15-20, PharmD dosing. Anticipate 6 weeks, through 06/25 tentatively. Subjective Date/time seen: 05/22/20 08:09 Interval history: mumbles, offers no new complaints Exam Narrative: Exam Narrative: afebrile Const: General: no acute distress Resp: Effort & Inspection: normal respiratory effort Auscultation: clear to auscultation bilaterally and diminished lung sounds Cardio: Rate: regular rate Rhythm: regular rhythm Heart sounds: no murmurs GI: Inspection: non-distended GI Palp: Yes Soft to palpation and No Tenderness to palpation present (GI) Skin: General skin exam: normal color and no rashes or lesions noted Objective Data Vital Signs Vital Signs: Vital Signs - 24 hr 05/21/20 08:30 05/21/20 08:35 05/21/20 12:00 Temperature 36.6 C Pulse Rate 72 69 86 Respiratory Rate 18 16 25 H Blood Pressure 162/79 H Pulse Oximetry 100 05/21/20 14:00 05/21/20 16:00 05/21/20 19:43 Temperature 36.8 C Pulse Rate 112 H 90 99 Respiratory Rate 22 H 16 Blood Pressure 141/68 H Pulse Oximetry 98 05/21/20 19:49 05/21/20 19:59 05/21/20 20:00 Temperature 36.8 C Pulse Rate 104 H 92 105 H Respiratory Rate 18 21 H 16 Blood Pressure 137/92 H Pulse Oximetry 97 96 05/21/20 20:17 05/21/20 22:00 05/22/20 00:00 Temperature 36.9 C Pulse Rate 104 H 90 87 Respiratory Rate 18 Blood Pressure 139/69 Pulse Oximetry 98 05/22/20 01:38 05/22/20 01:44 05/22/20 04:00 Temperature 37.1 C Pulse Rate 84 82 94 Respiratory Rate 19 23 H 22 H Blood Pressure 151/84 H Pulse Oximetry 97 05/22/20 05:14 05/22/20 06:00 Temperature Pulse Rate 94 96 Respiratory Rate Blood Pressure Pulse Oximetry Intake/Output Intake/Output: Intake & Output 05/19/20 05/20/20 05/21/20 05/22/20 23:59 23:59 23:59 23:59 Intake Total 1910 2410 2120 240 Output Total 1750 2250 5700 1500 Balance 160 160 -8100 -1260 Meds/Results Medications: Active Medications Generic Name Dose Route Start Last Admin Trade Name Freq PRN Reason Stop Dose Admin Acetaminophen 650 mg 05/19/20 11:43 05/21/20 03:11 Tylenol Tablet PO 650 mg Q6H PRN Administration Mild Pain (1-3) or Fever Acyclovir 1 applic 05/20/20 18:00 05/22/20 08:02 Zovirax Ointment TOPICAL 1 applic 5 TIMES DAILY STALIN Administration Apixaban 5 mg 05/18/20 23:00 05/22/20 08:02 Eliquis PO 5 mg Q12HR STALIN Administration Collagenase 1 applic 05/15/20 09:00 05/21/20 20:16 Santyl Oint TOPICAL 1 applic DAILY STALIN Administration Dextrose 12.5 gm 05/14/20 00:48 Dextrose 50% Syringe IV PUSH PRN PRN Hypoglycemia Protocol Escitalopram Oxalate 10 mg 05/21/20 09:00 05/22/20 08:02 Lexapro PO 10 mg DAILY STALIN Administration Furosemide 40 mg 05/19/20 11:55 05/22/20 08:03 Lasix Inj IV PUSH 40 mg BID STALIN Administration Glucagon 1 mg 05/14/20 00:48 Glucagon For Inj IM PRN PRN Hypoglycemia Protocol Glucose 15 gm 05/14/20 00:48 Glutose 15 PO PRN PRN Hypoglycemia Protocol Hydrocortisone Sodium Succinate 50 mg 05/14/20 22:00 05/22/20 05:14 Solu-Cortef IV PUSH 50 mg Q8HR STALIN Administration Dextrose 1,000 mls @ 100 mls/hr 05/14/20 00:48 Dextrose 5% 1,000 Ml IVPB PRN PRN Hypoglycemia Protocol Vancomycin HCl 1,750 mg in 500 mls @ 250 mls/hr 05/19/20 21:00 05/21/20 23:51 Vancom
[2020-05-22 08:24] LABS: Glucose Point of Care 235 (65-105)
[2020-05-22] MEDS: POTASSIUM CHLORIDE 20 MEQ TABLET 40 MEQ PO ×4 (08:25→20:19)
[2020-05-22 11:56] LABS: Glucose Point of Care 265 (65-105)
[2020-05-22 16:17] LABS: Glucose Point of Care 249 (65-105)
[2020-05-22 17:29] LABS: Anion Gap 5 mmol/L (8-16); Blood Urea Nitrogen 19 mg/dL (9-20); Calcium 8.2 mg/dL (8.4-10.2); Carbon Dioxide 33 mmol/L (22-30); Chloride 99 mmol/L (98-107); Estimated CRCL calculation 97 ml/min; Estimated Glomerular Filt Rate > 60; Glucose 248 mg/dL (75-110); Potassium 3.1 mmol/L (3.4-5.0); Sodium 137 mmol/L (137-145)
--- NOTE | 2020-05-22 17:53 | PM.IMPN ---
Progress Note: A&P Assessment and Plan (1) Severe sepsis: Code(s): A41.9 - Sepsis, unspecified organism; R65.20 - Severe sepsis without septic shock Status: Acute Assessment and Plan: Severe sepsis with septicemia. Present on admission with fever, tachycardia, metabolic encephalopathy and lactic acidosis. thought Due to UTI and/or pneumonia. Blood cultures and urine cultures all growing Staph aureus. Started on Rocephin and Doxycycline with Vanco added 05/14/20. Lactic normalized. Continue current IV abx with Vanc per ID . Repeat BCx still + from 05/16 and + 05/20. last vanc level 21 and repeat 05/21 only 10, pharmacy dosing poor prognosis with persistant + BC EVELYN 05/18 no vegetation and normal valve with EF 60 (2) UTI (urinary tract infection) due to urinary indwelling Fernandez catheter: Qualifiers: Indwelling urinary catheter type: indwelling urethral catheter Encounter type: initial encounter Qualified Code(s): T83.511A - Infection and inflammatory reaction due to indwelling urethral catheter, initial encounter; N39.0 - Urinary tract infection, site not specified Code(s): T83.511A - Infection and inflammatory reaction due to indwelling urethral catheter, initial encounter; N39.0 - Urinary tract infection, site not specified Status: Acute Assessment and Plan: Patient had a UTI in March that grew out Klebsiella pneumonia that was sensitive to most antibiotics. He was recently treated for testicular infection by Dr. Paz and was started on Cipro 05/10/2020. The patient's Fernandez catheter was changed while he was in the ER. UCx growing Staph aureus so could be the source of the infection (or possibly hematologic spread given the low colony count). ceftriaxone d/edson 05/17 (3) Pneumonia: Qualifiers: Laterality: bilateral Lung location: unspecified part of lung Pneumonia type: due to unspecified organism Qualified Code(s): J18.9 - Pneumonia, unspecified organism Code(s): J18.9 - Pneumonia, unspecified organism Status: Acute Assessment and Plan: CXR showing mild opacities in the left mid and lower lung zone suspected of being PNA. COVID test was negative. Started on Rocephin and doxycycline. BCx positive so Vanco added. On RA . Added nebs since COVID negative. CPT. Still could be pulmonary edema given the BNP 2200. Lasix restarted by card 05/19 IV q 12h with increased edema which has improved. Stopped IVF.05/15 and ceftriaxone 05/17 recheck xray am 05/23 (4) Paroxysmal atrial fibrillation with rapid ventricular response: Code(s): I48.0 - Paroxysmal atrial fibrillation Status: Acute Assessment and Plan: No evidence that this is paroxysmal so suspect this is new onset related to the sepsis. Echo in March showing EF 70% with grade I diastolic dysfunction. He was started on Diltiazem 5mg/hour and transitioned to Amiodarone drip started and rate better 05/16.and transitioning to po and now rate control with beta rm only Continue tele. and restarted eliquis for anticoagulation 05/18 (5) Altered mental status: Qualifiers: Altered mental status type: unspecified Qualified Code(s): R41.82 - Altered mental status, unspecified Code(s): R41.82 - Altered mental status, unspecified Status: Acute Assessment and Plan: Patient with toxic encephalopthy related to above. TSH okay. CT brain showing no acute findings. ABG 7.48/. Mental status still waxing and waning still periods of confusion (6) History of aortic valve replacement with bioprosthetic valve: Code(s): Z95.3 - Presence of xenogenic heart valve Status: Acute Assessment and Plan: Patient had a bioprosthetic aortic valve replacement in 2016. Echo in March 2020 showed normal aortic valve function. EVELYN 05/18 given the positive BCx. and as above no vegetation with normal EF and valve function diuresed over 2000 ml +
[2020-05-22] MEDS: INSULIN GLARGINE (*BKC) 100 UNITS/ML 15 UNITS SUB-Q (20:18)
[2020-05-22] MEDS: MELATONIN 3 MG TABLET PO (20:18)
[2020-05-22 20:22] LABS: Glucose Point of Care 235 (65-105)
[2020-05-23] VITALS (16 sets, daily range): BP systolic 126–165; BP diastolic 61–91; PULSE 63–96; RESP 18–26; TEMP 36.5–37.1; O2SAT 95–98
[2020-05-23] MEDS: HYDROCORTISONE SODIUM SUCCINATE 100 MG/2 ML VIAL 50 MG IV PUSH ×2 (00:08→12:15)
[2020-05-23 04:44] LABS: Basophils Percent Auto 0.1 % (0.2-1.2); Eosinophils Percent Auto 0.1 % (0-4.4); Hematocrit 31.6 % (42.0-52.0); Hemoglobin 10.9 g/dL (14.0-18.0); Immature Granulocyte Absolute 0.25 K/mm3 (0.00-0.031); Immature Granulocyte Percent A 1.7 % (0-0.5); Lymphocytes Percent Auto 3.3 % (18.3-44.2); Mean Corpuscular HGB Conc 34.5 g/dl (32-36); Mean Corpuscular Hemoglobin 30.8 pg (26-34); Mean Corpuscular Volume 89.3 fl (80-100); Mean Platelet Volume 9.8 fl (7.4-10.4); Monocytes Absolute Auto 0.6 K/mm3 (0.1-0.6); Monocytes Percent Auto 4.1 % (2.6-8.5); Neutrophils Absolute Auto 13.6 K/mm3 (1.3-6.7); Neutrophils Percent Auto 90.7 % (45.5-73.1); Platelet Count Result 273 k/mm3 (150-375); Red Blood Count 3.54 M/mm3 (4.6-6.20)
[2020-05-23 05:00] LABS: Alanine Aminotransferase 28 U/L (4-50); Albumin Level 2.6 g/dL (3.5-5.1); Alkaline Phosphatase 94 U/L (38-126); Anion Gap 5 mmol/L (8-16); Aspartate Amino Transferase 45 U/L (17-59); Bilirubin,Total 0.8 mg/dL (0.2-1.3); Blood Urea Nitrogen 22 mg/dL (9-20); Calcium 8.2 mg/dL (8.4-10.2); Carbon Dioxide 30 mmol/L (22-30); Chloride 101 mmol/L (98-107); Estimated CRCL calculation 111 ml/min; Estimated Glomerular Filt Rate > 60; Glucose 220 mg/dL (75-110); Magnesium 1.9 mg/dL (1.6-2.3); Phosphorus 3.4 mg/dL (2.5-4.5); Potassium 3.2 mmol/L (3.4-5.0); Sodium 136 mmol/L (137-145)
[2020-05-23 05:13] LABS: Platelet Estimate Adequate (Adequate)
[2020-05-23 05:14] LABS: Ovalocytes 1+ (NORMAL)
[2020-05-23] MEDS: METOPROLOL TARTRATE 50 MG TAB PO ×3 (06:13→20:46)
[2020-05-23 07:42] LABS: Glucose Point of Care 208 (65-105)
[2020-05-23] MEDS: APIXABAN 5 MG TABLET PO ×2 (08:54→20:45)
[2020-05-23] MEDS: ACYCLOVIR 5% OINTMENT 15 GM TUBE 1 APPLIC TOPICAL ×5 (08:54→20:46)
[2020-05-23] MEDS: INSULIN ASPART (*BKC) 100 UNITS/ML SUB-Q (08:54)
[2020-05-23] MEDS: COLLAGENASE OINT 30 GM TUBE 1 APPLIC TOPICAL (08:54)
[2020-05-23] MEDS: ESCITALOPRAM OXALATE 10 MG TABLET PO (08:55)
[2020-05-23] MEDS: THIAMINE HCL 100 MG TABLET PO (08:55)
[2020-05-23] MEDS: FUROSEMIDE INJ 40 MG/4 ML VIAL IV PUSH ×2 (08:55→17:53)
[2020-05-23 12:21] LABS: Glucose Point of Care 134 (65-105)
--- NOTE | 2020-05-23 12:27 | WPDINFPN2 ---
Progress Note: A&P Assessment and Plan (1) Staphylococcus aureus bacteremia with sepsis: Code(s): A41.01 - Sepsis due to Methicillin susceptible Staphylococcus aureus Status: Acute Assessment and Plan: 1. MRSA bacteremia with infection, 05/20 BCs still + 2. Bioprosthetic valve, EVLEYN no vegetation, however persistent + blood cultures indicate ongoing endovascular focus of infection 3. 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 Source of # 1 is either urine or skin 4. Suicidal ideation REC (antibiotic #10) Due to persistent +BCs, switch to Daptomycin. Redo BCs in several more days. Updated family. Anticipate 6 weeks, through 06/25 tentatively. Subjective Date/time seen: 05/23/20 12:27 Interval history: more awake Exam Narrative: Exam Narrative: afebrile Const: General: no acute distress Eyes: General: appearance normal, both eyes and all related structures Resp: Effort & Inspection: normal respiratory effort Auscultation: clear to auscultation bilaterally Cardio: Rate: regular rate Rhythm: regular rhythm Heart sounds: no murmurs GI: Inspection: non-distended GI Palp: Yes Soft to palpation and No Tenderness to palpation present (GI) Objective Data Vital Signs Vital Signs: Vital Signs - 24 hr 05/22/20 13:00 05/22/20 14:56 05/22/20 15:06 Temperature Pulse Rate 76 86 72 Respiratory Rate 24 H 25 H Blood Pressure Pulse Oximetry 05/22/20 16:00 05/22/20 20:00 05/22/20 20:12 Temperature 36.9 C 37.1 C Pulse Rate 80 101 H 94 Respiratory Rate 26 H 22 H Blood Pressure 147/84 H 147/80 H Pulse Oximetry 94 94 05/22/20 20:37 05/22/20 20:45 05/23/20 00:00 Temperature 37.1 C Pulse Rate 94 100 96 Respiratory Rate 26 H 24 H 24 H Blood Pressure 165/79 H Pulse Oximetry 95 05/23/20 02:15 05/23/20 02:23 05/23/20 04:00 Temperature 36.9 C Pulse Rate 94 76 86 Respiratory Rate 24 H 24 H 24 H Blood Pressure 129/77 Pulse Oximetry 96 05/23/20 06:13 05/23/20 08:00 05/23/20 09:00 Temperature 36.5 C Pulse Rate 77 69 63 Respiratory Rate 22 H 20 Blood Pressure 131/61 Pulse Oximetry 98 Intake/Output Intake/Output: Intake & Output 05/20/20 05/21/20 05/22/20 05/23/20 23:59 23:59 23:59 23:59 Intake Total 2410 2120 1585 240 Output Total 2250 5700 3100 850 Balance 160 -3580 -1515 -610 Meds/Results Medications: Active Medications Generic Name Dose Route Start Last Admin Trade Name Freq PRN Reason Stop Dose Admin Acetaminophen 650 mg 05/19/20 11:43 05/21/20 03:11 Tylenol Tablet PO 650 mg Q6H PRN Administration Mild Pain (1-3) or Fever Acyclovir 1 applic 05/20/20 18:00 05/23/20 08:54 Zovirax Ointment TOPICAL 1 applic 5 TIMES DAILY STALIN Administration Apixaban 5 mg 05/18/20 23:00 05/23/20 08:54 Eliquis PO 5 mg Q12HR STALIN Administration Collagenase 1 applic 05/15/20 09:00 05/23/20 08:54 Santyl Oint TOPICAL 1 applic DAILY STALIN Administration Dextrose 12.5 gm 05/14/20 00:48 Dextrose 50% Syringe IV PUSH PRN PRN Hypoglycemia Protocol Escitalopram Oxalate 10 mg 05/21/20 09:00 05/23/20 08:55 Lexapro PO 10 mg DAILY STALIN Administration Furosemide 40 mg 05/19/20 11:55 05/23/20 08:55 Lasix Inj IV PUSH 40 mg BID STALIN Administration Glucagon 1 mg 05/14/20 00:48 Glucagon For Inj IM PRN PRN Hypoglycemia Protocol Glucose 15 gm 05/14/20 00:48 Glutose 15 PO PRN PRN Hypoglycemia Protocol Hydrocortisone Sodium Succinate 50 mg 05/23/20 01:00 05/23/20 12:15 Solu-Cortef IV PUSH 50 mg Q12H STALIN Administration Dextrose 1,000 mls @ 100 mls/hr 05/14/20 00:48 Dextrose 5% 1,000 Ml IVPB PRN PRN Hypoglycemia Protocol Vancomycin HCl 1,750 mg in 500 mls @ 250 mls/hr 05/19/20 21:00 05/22/20 22:30 Vancomycin 1,750 Mg/D5w 500 Ml IVPB Infused Q24H STALIN Infusion Insulin Aspart 3 - 6 units 05/14/20 08:00 05/23/20
[2020-05-23] MEDS: DAPTOmycin 500 MG in SODIUM CHLORIDE 0.9% IV 50 ML 100 MG IVPB (14:23)
[2020-05-23 16:54] LABS: Glucose Point of Care 171 (65-105)
--- NOTE | 2020-05-23 17:30 | PM.IMPN ---
Progress Note: A&P Assessment and Plan (1) Severe sepsis: Code(s): A41.9 - Sepsis, unspecified organism; R65.20 - Severe sepsis without septic shock Status: Acute Assessment and Plan: Severe sepsis with septicemia. Present on admission with fever, tachycardia, metabolic encephalopathy and lactic acidosis. thought Due to UTI and/or pneumonia. Blood cultures and urine cultures all growing MRSA. Started on Rocephin and Doxycycline with Vanco added 05/14/20. Narrowed to Vanco with final ID. Lactic normalized. Repeat BCx still + from 05/16 and 05/20. EVELYN 05/18 showing no veg. Pharmacy dosing Vanco. Poor prognosis with persistant + BC. ID changed abx to Daptomycin 05/23/20. (2) Suicidal ideation: Code(s): R45.851 - Suicidal ideations Status: Acute Assessment and Plan: Alaina moved to ICU after expressing suicidal ideation. Patient states today that he was not serious but he is somnolent and confused so unclear if acurrate. hard to clear him with Crisis due to his confusion. (3) UTI (urinary tract infection) due to urinary indwelling Fernandez catheter: Qualifiers: Encounter type: initial encounter Indwelling urinary catheter type: indwelling urethral catheter Qualified Code(s): T83.511A - Infection and inflammatory reaction due to indwelling urethral catheter, initial encounter; N39.0 - Urinary tract infection, site not specified Code(s): T83.511A - Infection and inflammatory reaction due to indwelling urethral catheter, initial encounter; N39.0 - Urinary tract infection, site not specified Status: Acute Assessment and Plan: Patient had a UTI in March that grew out Klebsiella pneumonia that was sensitive to most antibiotics. He was recently treated for testicular infection by Dr. Paz and was started on Cipro 05/10/20. The patient's Fernandez catheter was changed while he was in the ER. UCx growing Staph aureus so could be the source of the infection (or possibly hematologic spread given the low colony count). ceftriaxone d/edson 05/17. (4) Pneumonia: Qualifiers: Laterality: bilateral Lung location: unspecified part of lung Pneumonia type: due to unspecified organism Qualified Code(s): J18.9 - Pneumonia, unspecified organism Code(s): J18.9 - Pneumonia, unspecified organism Status: Acute Assessment and Plan: CXR showing mild opacities in the left mid and lower lung zone suspected of being PNA. COVID test was negative. Started on Rocephin and doxycycline. BCx positive so Vanco added. On RA. Added nebs since COVID negative. CPT. Still could be pulmonary edema given the BNP 2200. Lasix restarted by card 05/19 IV q 12h with increased edema which has improved. Stopped IVF 05/15 and ceftriaxone 05/17. recheck xray am 05/24 (5) Paroxysmal atrial fibrillation with rapid ventricular response: Code(s): I48.0 - Paroxysmal atrial fibrillation Status: Acute Assessment and Plan: No evidence that this is paroxysmal so suspect this is new onset related to the sepsis. Echo in March showing EF 70% with grade I diastolic dysfunction. He was started on Diltiazem 5mg/hour and transitioned to Amiodarone drip started and rate better 05/16 and transitioning to po and now rate control with beta rm only Continue tele. Eliquis restarted 05/18 (6) Altered mental status: Qualifiers: Altered mental status type: unspecified Qualified Code(s): R41.82 - Altered mental status, unspecified Code(s): R41.82 - Altered mental status, unspecified Status: Acute Assessment and Plan: Patient with toxic encephalopthy related to above. TSH okay. CT brain showing no acute findings. ABG 7.48. Mental status still waxing and waning still periods of confusion (7) History of aortic valve replacement with bioprosthetic valve: Code(s): Z95.3 - Presence of xenogenic heart valve Status: Acute
[2020-05-23] MEDS: MAGNESIUM SULF 2 GM/WATER 50ML 2 GM/50 ML BAG IVPB (18:33)
[2020-05-23] MEDS: POTASSIUM CHLORIDE 20 MEQ TABLET.ER 40 MEQ PO (18:33)
[2020-05-23] MEDS: MELATONIN 3 MG TABLET PO (20:45)
[2020-05-23] MEDS: INSULIN GLARGINE (*BKC) 100 UNITS/ML 15 UNITS SUB-Q (20:47)
[2020-05-23 20:52] LABS: Glucose Point of Care 251 (65-105)
[2020-05-24] VITALS (19 sets, daily range): BP systolic 126–139; BP diastolic 65–78; PULSE 75–99; RESP 16–26; TEMP 36.3–38.7; O2SAT 93–98
[2020-05-24] MEDS: HYDROCORTISONE SODIUM SUCCINATE 100 MG/2 ML VIAL 50 MG IV PUSH (02:05)
[2020-05-24 04:20] LABS: Basophils Percent Auto 0.1 % (0.2-1.2); Eosinophils Absolute Auto 0.1 K/mm3 (0-0.3); Eosinophils Percent Auto 0.4 % (0-4.4); Hematocrit 32.4 % (42.0-52.0); Immature Granulocyte Absolute 0.18 K/mm3 (0.00-0.031); Immature Granulocyte Percent A 1.3 % (0-0.5); Lymphocytes Absolute Auto 0.88 K/mm3 (0.9-3.2); Lymphocytes Percent Auto 6.3 % (18.3-44.2); Mean Corpuscular Hemoglobin 30.2 pg (26-34); Mean Platelet Volume 10.1 fl (7.4-10.4); Monocytes Absolute Auto 0.8 K/mm3 (0.1-0.6); Monocytes Percent Auto 5.4 % (2.6-8.5); Neutrophils Percent Auto 86.5 % (45.5-73.1); Platelet Count Result 293 k/mm3 (150-375); Red Blood Count 3.64 M/mm3 (4.6-6.20); Red Cell Distribution Width 14.3 % (11.5-14.5); White Blood Count 13.9 K/mm3 (4.5-10.0)
[2020-05-24 04:35] LABS: Albumin Level 2.6 g/dL (3.5-5.1); Anion Gap 5 mmol/L (8-16); Blood Urea Nitrogen 27 mg/dL (9-20); Calcium 8.1 mg/dL (8.4-10.2); Carbon Dioxide 32 mmol/L (22-30); Chloride 100 mmol/L (98-107); Estimated CRCL calculation 112 ml/min; Estimated Glomerular Filt Rate > 60; Glucose 186 mg/dL (75-110); Magnesium 2.2 mg/dL (1.6-2.3); Phosphorus 3.6 mg/dL (2.5-4.5); Potassium 3.1 mmol/L (3.4-5.0); Sodium 137 mmol/L (137-145)
[2020-05-24] MEDS: METOPROLOL TARTRATE 50 MG TAB PO ×3 (05:05→22:09)
[2020-05-24 08:49] LABS: Glucose Point of Care 178 (65-105)
[2020-05-24] MEDS: COLLAGENASE OINT 30 GM TUBE 1 APPLIC TOPICAL (08:49)
[2020-05-24] MEDS: ACYCLOVIR 5% OINTMENT 15 GM TUBE 1 APPLIC TOPICAL ×5 (08:49→22:09)
[2020-05-24] MEDS: FUROSEMIDE INJ 40 MG/4 ML VIAL IV PUSH ×2 (08:49→16:41)
--- NOTE | 2020-05-24 09:21 | PM.IMPN ---
Progress Note: A&P Assessment and Plan (1) Severe sepsis: Code(s): A41.9 - Sepsis, unspecified organism; R65.20 - Severe sepsis without septic shock Status: Acute Assessment and Plan: Severe sepsis with septicemia. Present on admission with fever, tachycardia, metabolic encephalopathy and lactic acidosis. Thought due to UTI and/or pneumonia. Blood cultures and urine cultures all growing MRSA. Started on Rocephin and Doxycycline with Vanco added 05/14/20. Narrowed to Vanco with final ID. Lactic normalized. Repeat BCx still + from 05/16 and 05/20. EVELYN 05/18 showing no veg. Poor prognosis with persistent + BC. ID changed abx to Daptomycin 05/23/20. Plan to repeat BCx in another day or so. (2) Suicidal ideation: Code(s): R45.851 - Suicidal ideations Status: Acute Assessment and Plan: Alaina moved to ICU after expressing suicidal ideation. Patient has since denied this but he is confused so unclear if acurrate. Crisis to evaluate. (3) UTI (urinary tract infection) due to urinary indwelling Fernandez catheter: Qualifiers: Encounter type: initial encounter Indwelling urinary catheter type: indwelling urethral catheter Qualified Code(s): T83.511A - Infection and inflammatory reaction due to indwelling urethral catheter, initial encounter; N39.0 - Urinary tract infection, site not specified Code(s): T83.511A - Infection and inflammatory reaction due to indwelling urethral catheter, initial encounter; N39.0 - Urinary tract infection, site not specified Status: Acute Assessment and Plan: Patient had a UTI in March that grew out Klebsiella pneumonia that was sensitive to most antibiotics. He was recently treated for testicular infection by Dr. Paz and was started on Cipro 05/10/20. The patient's Fernandez catheter was changed while he was in the ER. UCx growing Staph aureus so could be the source of the infection (or possibly hematologic spread given the low colony count). Ceftriaxone d/edson 05/17. (4) Pneumonia: Qualifiers: Laterality: bilateral Lung location: unspecified part of lung Pneumonia type: due to unspecified organism Qualified Code(s): J18.9 - Pneumonia, unspecified organism Code(s): J18.9 - Pneumonia, unspecified organism Status: Acute Assessment and Plan: CXR showing mild opacities in the left mid and lower lung zone suspected of being PNA. COVID test was negative. Started on Rocephin and doxycycline. BCx positive so Vanco added. On RA. Added nebs since COVID negative. CPT. Still could be pulmonary edema given the BNP 2200. Lasix 40mg IV Q12h restarted 05/19 due to increased edema which has improved. Stopped IVF 05/15 and ceftriaxone 05/17. CXR 05/24 reviewed showing atelectasis. (5) Paroxysmal atrial fibrillation with rapid ventricular response: Code(s): I48.0 - Paroxysmal atrial fibrillation Status: Acute Assessment and Plan: No evidence that this is paroxysmal so suspect this is new onset related to the sepsis. Echo in March showing EF 70% with grade I diastolic dysfunction. He was started on Diltiazem 5mg/hour and transitioned to Amiodarone drip. Rate better 05/16 and transitioning to po and now rate control with beta rm only. Continue tele. Eliquis restarted 05/18. (6) Altered mental status: Qualifiers: Altered mental status type: unspecified Qualified Code(s): R41.82 - Altered mental status, unspecified Code(s): R41.82 - Altered mental status, unspecified Status: Acute Assessment and Plan: Patient with toxic encephalopthy related to above infection. TSH okay. CT brain showing no acute findings. ABG 7.48. Mental status still waxing and waning with periods of confusion. Continue to try to re-orient. Could be steroid induced as well. (7) History of aortic valve replacement with bioprosthetic valve: Code(s): Z95.3 - Presence of xe
--- NOTE | 2020-05-24 10:43 | WPDINFPN2 ---
Progress Note: A&P Assessment and Plan (1) Staphylococcus aureus bacteremia with sepsis: Code(s): A41.01 - Sepsis due to Methicillin susceptible Staphylococcus aureus Status: Acute Assessment and Plan: 1. MRSA bacteremia with infection, 05/20 BCs still + 2. 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 Source of # 1 is either urine or skin 4. Suicidal ideation 5. Nausea, ?due to dapto, vs ileus with his exam indicating the latter REC (antibiotic #11) Daptomycin #2, continue. Increase activity and ok with me for anti-nausea meds. Redo BCs in AM. Anticipate 6 weeks, through 06/25 tentatively. Subjective Date/time seen: 05/24/20 10:43 Interval history: nausea not much appetite no abd pain Exam Narrative: Exam Narrative: afebrile Const: General: no acute distress Resp: Effort & Inspection: normal respiratory effort Auscultation: clear to auscultation bilaterally and diminished lung sounds Cardio: Rate: regular rate Rhythm: regular rhythm Heart sounds: no murmurs GI: Inspection: non-distended GI Palp: Yes Firmness to palpation present (GI), No Tenderness to palpation present (GI) and No Guarding due to palpation present (GI) Percussion: Yes tympanic to percussion Auscultation: abnormal bowel sounds Skin: General skin exam: normal color and no rashes or lesions noted Objective Data Vital Signs Vital Signs: Vital Signs - 24 hr 05/23/20 12:00 05/23/20 14:23 05/23/20 14:54 Temperature Pulse Rate 79 80 71 Respiratory Rate 18 24 H Blood Pressure 130/62 Pulse Oximetry 96 05/23/20 15:20 05/23/20 16:00 05/23/20 20:00 Temperature Pulse Rate 71 78 86 Respiratory Rate 24 H 21 H 26 H Blood Pressure 142/91 H 126/72 Pulse Oximetry 95 96 05/23/20 20:46 05/23/20 20:47 05/23/20 20:57 Temperature Pulse Rate 90 82 84 Respiratory Rate 22 H 22 H Blood Pressure Pulse Oximetry 05/24/20 00:28 05/24/20 02:27 05/24/20 02:38 Temperature 36.3 C L Pulse Rate 86 88 87 Respiratory Rate 22 H 20 20 Blood Pressure 131/65 Pulse Oximetry 96 05/24/20 03:45 05/24/20 05:05 05/24/20 08:35 Temperature 36.6 C Pulse Rate 82 83 75 Respiratory Rate 20 18 Blood Pressure 131/65 Pulse Oximetry 93 05/24/20 08:45 Temperature Pulse Rate 86 Respiratory Rate 18 Blood Pressure Pulse Oximetry Intake/Output Intake/Output: Intake & Output 05/21/20 05/22/20 05/23/20 05/24/20 23:59 23:59 23:59 23:59 Intake Total 2120 1585 1015 200 Output Total 5700 3100 2950 400 [facility] -3580 -1515 -1935 -200 Meds/Results Medications: Active Medications Generic Name Dose Route Start Last Admin Trade Name Freq PRN Reason Stop Dose Admin Acetaminophen 650 mg 05/19/20 11:43 05/21/20 03:11 Tylenol Tablet PO 650 mg Q6H PRN Administration Mild Pain (1-3) or Fever Acyclovir 1 applic 05/20/20 18:00 05/24/20 08:49 Zovirax Ointment TOPICAL 05/25/20 11:59 1 applic 5 TIMES DAILY STALIN Administration Apixaban 5 mg 05/18/20 23:00 05/23/20 20:45 Eliquis PO 5 mg Q12HR STALIN Administration Collagenase 1 applic 05/15/20 09:00 05/24/20 08:49 Santyl Oint TOPICAL 1 applic DAILY STALIN Administration Dextrose 12.5 gm 05/14/20 00:48 Dextrose 50% Syringe IV PUSH PRN PRN Hypoglycemia Protocol Escitalopram Oxalate 10 mg 05/21/20 09:00 05/23/20 08:55 Lexapro PO 10 mg DAILY STALIN Administration Furosemide 40 mg 05/19/20 11:55 05/24/20 08:49 Lasix Inj IV PUSH 40 mg BID STALIN Administration Glucagon 1 mg 05/14/20 00:48 Glucagon For Inj IM PRN PRN Hypoglycemia Protocol Glucose 15 gm 05/14/20 00:48 Glutose 15 PO PRN PRN Hypoglycemia Protocol Hydrocortisone Sodium Succinate 25 mg 05/24/20 14:00 Solu-Cortef IV PUSH Q12H STALIN Dextrose 1,000 mls
[2020-05-24] MEDS: ESCITALOPRAM OXALATE 10 MG TABLET PO (11:37)
[2020-05-24] MEDS: POTASSIUM CHLORIDE 20 MEQ TABLET 40 MEQ PO (11:37)
[2020-05-24] MEDS: APIXABAN 5 MG TABLET PO ×2 (11:37→22:08)
[2020-05-24] MEDS: THIAMINE HCL 100 MG TABLET PO (11:38)
[2020-05-24 12:33] LABS: Glucose Point of Care 214 (65-105)
[2020-05-24] MEDS: DAPTOmycin 500 MG in SODIUM CHLORIDE 0.9% IV 50 ML 100 MG IVPB (12:51)
[2020-05-24] MEDS: INSULIN ASPART (*BKC) 100 UNITS/ML SUB-Q (12:52)
--- NOTE | 2020-05-24 14:36 | PC.NURSE ---
This patient, Francisco J Sanchez, was received from [ ICU] on 05/24/20 at 1436. Personal belongings list checked and signed. Patient/family oriented to unit policies and routines
[2020-05-24] MEDS: HYDROCORTISONE SODIUM SUCCINATE 100 MG/2 ML VIAL 25 MG IV PUSH (14:46)
--- NOTE | 2020-05-24 15:09 | PCDIET ---
Nutrition Follow-Up Complete: Nutrition Diagnosis: Inadequate oral intake related to poor appetite as evidenced by patient report and average meal consumption of 46% Nutrition Goal: Patient to consume 75% or more of meals and supplements Goal not met. Average intake has been 43% of recorded meals since 05/20/20; however, patient has been taking some Fabrice. Recommend changing Fabrice from prn to BID and changing Glucerna Shake from prn to 1x daily until intakes improve. Diet is soft and bite size, diabetic, which is appropriate. Last recorded weight is 107.1 kg which is down from last review due to -I/O and suboptimal intakes. Bowel Motility: BM x 1 today. Labs Reviewed: Hgb (11.0), Hct (32.4), Glu (186), BUN (27), Cr (0.6), K (3.1), Alb (2.6), Car Ca (9.22) Meds Noted: Acyclovir, Daptomycin, Lasix, Solu-Cortef, Novolog, Lantus, Xopenex, Phenergan, Thiamine, KCl Additional Notes: Right lower leg ulcer. Sacrum macerated. Will continue to monitor with same goal. Nutrition Monitoring and Evaluation: Follow up in 5 days.
[2020-05-24 16:25] LABS: Glucose Point of Care 182 (65-105)
--- NOTE | 2020-05-24 16:30 | PC.NURSE ---
TEMP 101.5 DR MAURER NOTIFIED NEW ORDERS RECIEVED
--- NOTE | 2020-05-24 16:46 | PCSTNOTE ---
ST was attempted however patient appeared both asleep and receiving a breathing treatment. Family would like diet upgrade to regular diet. Speech Therapy will evaluate on 05/25/20.
[2020-05-24] MEDS: INSULIN GLARGINE (*BKC) 100 UNITS/ML 15 UNITS SUB-Q (22:09)
[2020-05-24] MEDS: MELATONIN 3 MG TABLET PO (22:09)
[2020-05-24 23:32] LABS: Glucose Point of Care 289 (65-105)
[2020-05-25] VITALS (16 sets, daily range): BP systolic 124–158; BP diastolic 65–75; PULSE 77–112; RESP 16–23; TEMP 36–37; O2SAT 93–98; BMI 10.0
[2020-05-25] MEDS: HYDROCORTISONE SODIUM SUCCINATE 100 MG/2 ML VIAL 25 MG IV PUSH ×2 (01:38→13:10)
[2020-05-25] MEDS: METOPROLOL TARTRATE 50 MG TAB PO ×3 (05:53→21:59)
[2020-05-25 08:00] LABS: Glucose Point of Care 202 (65-105)
[2020-05-25 08:20] LABS: Basophils Percent Auto 0.2 % (0.2-1.2); Eosinophils Percent Auto 0.1 % (0-4.4); Hematocrit 32.3 % (42.0-52.0); Hemoglobin 10.8 g/dL (14.0-18.0); Immature Granulocyte Absolute 0.17 K/mm3 (0.00-0.031); Lymphocytes Absolute Auto 0.82 K/mm3 (0.9-3.2); Lymphocytes Percent Auto 4.7 % (18.3-44.2); Mean Corpuscular HGB Conc 33.4 g/dl (32-36); Mean Corpuscular Hemoglobin 30.2 pg (26-34); Mean Corpuscular Volume 90.2 fl (80-100); Mean Platelet Volume 9.9 fl (7.4-10.4); Monocytes Absolute Auto 0.9 K/mm3 (0.1-0.6); Monocytes Percent Auto 5.1 % (2.6-8.5); Neutrophils Absolute Auto 15.5 K/mm3 (1.3-6.7); Neutrophils Percent Auto 88.9 % (45.5-73.1); Platelet Count Result 317 k/mm3 (150-375); Red Blood Count 3.58 M/mm3 (4.6-6.20); Red Cell Distribution Width 14.4 % (11.5-14.5); White Blood Count 17.4 K/mm3 (4.5-10.0)
[2020-05-25 08:35] LABS: Alanine Aminotransferase 24 U/L (4-50); Albumin Level 2.8 g/dL (3.5-5.1); Alkaline Phosphatase 95 U/L (38-126); Anion Gap 6 mmol/L (8-16); Aspartate Amino Transferase 22 U/L (17-59); Bilirubin,Total 1.3 mg/dL (0.2-1.3); Blood Urea Nitrogen 25 mg/dL (9-20); Calcium 8.2 mg/dL (8.4-10.2); Carbon Dioxide 34 mmol/L (22-30); Chloride 96 mmol/L (98-107); Estimated CRCL calculation 97 ml/min; Estimated Glomerular Filt Rate > 60; Glucose 218 mg/dL (75-110); Magnesium 2.1 mg/dL (1.6-2.3); Phosphorus 3.6 mg/dL (2.5-4.5); Potassium 3.3 mmol/L (3.4-5.0); Sodium 136 mmol/L (137-145)
[2020-05-25] MEDS: ACYCLOVIR 5% OINTMENT 15 GM TUBE 1 APPLIC TOPICAL (08:40)
[2020-05-25] MEDS: APIXABAN 5 MG TABLET PO ×2 (08:41→20:24)
[2020-05-25] MEDS: ESCITALOPRAM OXALATE 10 MG TABLET PO (08:41)
[2020-05-25] MEDS: COLLAGENASE OINT 30 GM TUBE 1 APPLIC TOPICAL (08:41)
[2020-05-25] MEDS: THIAMINE HCL 100 MG TABLET PO (08:41)
[2020-05-25] MEDS: FUROSEMIDE INJ 40 MG/4 ML VIAL IV PUSH ×2 (08:41→16:12)
[2020-05-25] MEDS: INSULIN ASPART (*BKC) 100 UNITS/ML SUB-Q ×2 (08:42→16:19)
--- NOTE | 2020-05-25 11:42 | PM.IMPN ---
Progress Note: A&P Assessment and Plan (1) Severe sepsis: Code(s): A41.9 - Sepsis, unspecified organism; R65.20 - Severe sepsis without septic shock Status: Acute Assessment and Plan: Severe sepsis with septicemia. Present on admission with fever, tachycardia, metabolic encephalopathy and lactic acidosis. Thought due to UTI and/or pneumonia. Blood cultures and urine cultures all growing MRSA. Started on Rocephin and Doxycycline with Vanco added 05/14/20. Narrowed to Vanco with final ID. Lactic normalized. Repeat BCx still + from 05/16 and 05/20. EVELYN 05/18 showing no veg. Poor prognosis with persistent + BC. ID changed abx to Daptomycin 05/23/20. Not sure if affective given the higher WBC and fever. BCx repeated today. Repeat WBC and check CRP. (2) Suicidal ideation: Code(s): R45.851 - Suicidal ideations Status: Acute Assessment and Plan: Shayyn moved to ICU after expressing suicidal ideation. Patient has since denied this but he is confused so unclear if acurrate. Crisis evaluated the patient and he was cleared. (3) UTI (urinary tract infection) due to urinary indwelling Fernandez catheter: Qualifiers: Encounter type: initial encounter Indwelling urinary catheter type: indwelling urethral catheter Qualified Code(s): T83.511A - Infection and inflammatory reaction due to indwelling urethral catheter, initial encounter; N39.0 - Urinary tract infection, site not specified Code(s): T83.511A - Infection and inflammatory reaction due to indwelling urethral catheter, initial encounter; N39.0 - Urinary tract infection, site not specified Status: Acute Assessment and Plan: Patient had a UTI in March that grew out Klebsiella pneumonia that was sensitive to most antibiotics. He was recently treated for testicular infection by Dr. Paz and was started on Cipro 05/10/20. The patient's Fernandez catheter was changed while he was in the ER. UCx growing Staph aureus so could be the source of the infection (or possibly hematologic spread given the low colony count). Ceftriaxone d/edson 05/17. (4) Pneumonia: Qualifiers: Laterality: bilateral Lung location: unspecified part of lung Pneumonia type: due to unspecified organism Qualified Code(s): J18.9 - Pneumonia, unspecified organism Code(s): J18.9 - Pneumonia, unspecified organism Status: Acute Assessment and Plan: CXR showing mild opacities in the left mid and lower lung zone suspected of being PNA. COVID test was negative. Started on Rocephin and doxycycline. BCx positive so Vanco added. On RA. Added nebs since COVID negative. CPT. Still could be pulmonary edema given the BNP 2200. Lasix 40mg IV Q12h restarted 05/19 due to increased edema which has improved. Stopped IVF 05/15 and ceftriaxone 05/17. CXR 05/24 reviewed showing atelectasis. (5) Paroxysmal atrial fibrillation with rapid ventricular response: Code(s): I48.0 - Paroxysmal atrial fibrillation Status: Acute Assessment and Plan: No evidence that this is paroxysmal so suspect this is new onset related to the sepsis. Echo in March showing EF 70% with grade I diastolic dysfunction. He was started on Diltiazem 5mg/hour and transitioned to Amiodarone drip. Rate better 05/16 and transitioning to po and now rate control with beta rm only. Continue tele. Eliquis restarted 05/18. (6) Altered mental status: Qualifiers: Altered mental status type: unspecified Qualified Code(s): R41.82 - Altered mental status, unspecified Code(s): R41.82 - Altered mental status, unspecified Status: Acute Assessment and Plan: Patient with toxic encephalopthy related to above. TSH okay. CT brain showing no acute findings. ABG 7.48//. Mental status still waxing and waning still periods of confusion. Continue to try to re-orient. Could be steroid induced as well. Repeated CT brain again showin
[2020-05-25 11:45] LABS: Glucose Point of Care 173 (65-105)
[2020-05-25] MEDS: DAPTOmycin 500 MG in SODIUM CHLORIDE 0.9% IV 50 ML 100 MG IVPB (12:38)
[2020-05-25] MEDS: POTASSIUM CHLORIDE 20 MEQ TABLET 40 MEQ PO (12:38)
--- NOTE | 2020-05-25 13:25 | WPDINFPN2 ---
Progress Note: A&P Assessment and Plan (1) Staphylococcus aureus bacteremia with sepsis: Code(s): A41.01 - Sepsis due to Methicillin susceptible Staphylococcus aureus Status: Acute Assessment and Plan: 1. MRSA bacteremia with infection, 05/20 BCs + 2. 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 Source of # 1 is either urine or skin 4. Suicidal ideation 5. Nausea 6. Breakthrough feverr due to #1 REC (antibiotic #12) Daptomycin #3, continue. F/U redo BCs in AM. Anticipate 6 weeks, through 06/25 tentatively. Will f/u periodically Subjective Date/time seen: 05/25/20 13:25 Interval history: confused Exam Narrative: Exam Narrative: t max 38.7 Const: General: no acute distress Eyes: General: appearance normal, both eyes and all related structures Resp: Effort & Inspection: normal respiratory effort Auscultation: clear to auscultation bilaterally Cardio: Rate: tachycardic Rhythm: abnormal rhythm Heart sounds: no murmurs GI: Inspection: non-distended GI Palp: Yes Soft to palpation and No Tenderness to palpation present (GI) Objective Data Vital Signs Vital Signs: Vital Signs - 24 hr 05/24/20 14:46 05/24/20 15:23 05/24/20 15:42 Temperature 37.6 C H Pulse Rate 99 81 95 Respiratory Rate 20 22 H Blood Pressure 130/71 Pulse Oximetry 94 05/24/20 16:00 05/24/20 16:39 05/24/20 17:05 Temperature 38.7 C H 37.4 C Pulse Rate 92 Respiratory Rate Blood Pressure Pulse Oximetry 05/24/20 20:00 05/24/20 21:10 05/24/20 21:23 Temperature 36.4 C Pulse Rate 82 77 79 Respiratory Rate 16 20 20 Blood Pressure 139/77 Pulse Oximetry 93 05/24/20 22:09 05/25/20 00:00 05/25/20 03:03 Temperature Pulse Rate 79 77 78 Respiratory Rate 20 Blood Pressure Pulse Oximetry 05/25/20 03:08 05/25/20 04:00 05/25/20 05:53 Temperature Pulse Rate 77 94 94 Respiratory Rate 20 Blood Pressure Pulse Oximetry 05/25/20 06:00 05/25/20 08:00 05/25/20 12:00 Temperature 36.0 C L Pulse Rate 88 80 95 Respiratory Rate 20 Blood Pressure 146/65 H Pulse Oximetry 93 05/25/20 13:13 05/25/20 13:24 Temperature 36.2 C L Pulse Rate 108 H 103 H Respiratory Rate 23 H Blood Pressure 124/66 Pulse Oximetry 96 Intake/Output Intake/Output: Intake & Output 05/22/20 05/23/20 05/24/20 05/25/20 23:59 23:59 23:59 23:59 Intake Total 1585 1015 520 650 Output Total 3100 2950 1300 850 Balance -1515 -1935 -780 -200 Meds/Results Medications: Active Medications Generic Name Dose Route Start Last Admin Trade Name Freq PRN Reason Stop Dose Admin Acetaminophen 650 mg 05/19/20 11:43 05/21/20 03:11 Tylenol Tablet PO 650 mg Q6H PRN Administration Mild Pain (1-3) or Fever Apixaban 5 mg 05/18/20 23:00 05/25/20 08:41 Eliquis PO 5 mg Q12HR STALIN Administration Collagenase 1 applic 05/15/20 09:00 05/25/20 08:41 Santyl Oint TOPICAL 1 applic DAILY STALIN Administration Dextrose 12.5 gm 05/14/20 00:48 Dextrose 50% Syringe IV PUSH PRN PRN Hypoglycemia Protocol Escitalopram Oxalate 10 mg 05/21/20 09:00 05/25/20 08:41 Lexapro PO 10 mg DAILY STALIN Administration Furosemide 40 mg 05/19/20 11:55 05/25/20 08:41 Lasix Inj IV PUSH 40 mg BID STALIN Administration Glucagon 1 mg 05/14/20 00:48 Glucagon For Inj IM PRN PRN Hypoglycemia Protocol Glucose 15 gm 05/14/20 00:48 Glutose 15 PO PRN PRN Hypoglycemia Protocol Hydrocortisone Sodium Succinate 25 mg 05/24/20 14:00 05/25/20 13:10 Solu-Cortef IV PUSH 25 mg Q12H STALIN Administration Dextrose 1,000 mls @ 100 mls/hr 05/14/20 00:48 Dextrose 5% 1,000 Ml IVPB PRN PRN Hypoglycemia Protocol Daptomycin 500 mg/ Sodium 50 mls @ 100 mls/hr 05/23/20 12:35 05/25/20 12:3
[2020-05-25 17:03] LABS: Glucose Point of Care 249 (65-105)
[2020-05-25 19:52] LABS: Glucose Point of Care 283 (65-105)
[2020-05-25] MEDS: MELATONIN 3 MG TABLET PO (20:24)
[2020-05-25] MEDS: INSULIN GLARGINE (*BKC) 100 UNITS/ML 15 UNITS SUB-Q (20:24)
[2020-05-26] VITALS (18 sets, daily range): BP systolic 133–138; BP diastolic 75–79; PULSE 56–91; RESP 14–20; TEMP 36.2–36.4; O2SAT 96–99
[2020-05-26 05:32] LABS: Basophils Percent Auto 0.2 % (0.2-1.2); Eosinophils Absolute Auto 0.1 K/mm3 (0-0.3); Eosinophils Percent Auto 0.5 % (0-4.4); Hematocrit 31.2 % (42.0-52.0); Hemoglobin 10.3 g/dL (14.0-18.0); Immature Granulocyte Absolute 0.24 K/mm3 (0.00-0.031); Immature Granulocyte Percent A 1.4 % (0-0.5); Lymphocytes Absolute Auto 1.28 K/mm3 (0.9-3.2); Lymphocytes Percent Auto 7.2 % (18.3-44.2); Mean Corpuscular Hemoglobin 29.6 pg (26-34); Mean Corpuscular Volume 89.7 fl (80-100); Mean Platelet Volume 10.1 fl (7.4-10.4); Monocytes Absolute Auto 1.1 K/mm3 (0.1-0.6); Monocytes Percent Auto 6.4 % (2.6-8.5); Neutrophils Percent Auto 84.3 % (45.5-73.1); Platelet Count Result 304 k/mm3 (150-375); Red Blood Count 3.48 M/mm3 (4.6-6.20); Red Cell Distribution Width 14.3 % (11.5-14.5); White Blood Count 17.8 K/mm3 (4.5-10.0)
[2020-05-26 05:45] LABS: Anion Gap 7 mmol/L (8-16); Blood Urea Nitrogen 27 mg/dL (9-20); Calcium 8.2 mg/dL (8.4-10.2); Carbon Dioxide 29 mmol/L (22-30); Chloride 99 mmol/L (98-107); Estimated CRCL calculation 131 ml/min; Estimated Glomerular Filt Rate > 60; Glucose 181 mg/dL (75-110); Potassium 3.5 mmol/L (3.4-5.0); Sodium 135 mmol/L (137-145)
[2020-05-26] MEDS: METOPROLOL TARTRATE 50 MG TAB PO ×3 (06:18→21:39)
[2020-05-26 07:49] LABS: Glucose Point of Care 162 (65-105)
[2020-05-26] MEDS: APIXABAN 5 MG TABLET PO ×2 (09:29→21:39)
[2020-05-26] MEDS: THIAMINE HCL 100 MG TABLET PO (09:29)
[2020-05-26] MEDS: ESCITALOPRAM OXALATE 10 MG TABLET PO (09:29)
[2020-05-26] MEDS: FUROSEMIDE INJ 40 MG/4 ML VIAL IV PUSH ×2 (09:29→16:54)
[2020-05-26] MEDS: DEXAMETHASONE 4 MG TABLET PO (10:13)
--- NOTE | 2020-05-26 10:13 | PM.IMPN ---
Progress Note: A&P Assessment and Plan (1) Severe sepsis: Code(s): A41.9 - Sepsis, unspecified organism; R65.20 - Severe sepsis without septic shock Status: Acute Assessment and Plan: Severe sepsis with septicemia. Present on admission with fever, tachycardia, metabolic encephalopathy and lactic acidosis. Thought due to UTI and/or pneumonia. Blood cultures and urine cultures all growing MRSA. Started on Rocephin and Doxycycline with Vanco added 05/14/20. Narrowed to Vanco with final ID. Lactic normalized. Repeat BCx still (+) from 05/16 and 05/20. EVELYN 05/18 showing no veg. Poor prognosis with persistent + BC. ID changed abx to Daptomycin 05/23/20. Now having higher WBC and fever with BCx (05/23) now positive. CRP 26 and WBC 17K today. ID following. (2) Suicidal ideation: Code(s): R45.851 - Suicidal ideations Status: Acute Assessment and Plan: Alaina moved to ICU after expressing suicidal ideation. Patient has since denied this but he is confused so unclear if acurrate. Crisis evaluated the patient and he was cleared. (3) UTI (urinary tract infection) due to urinary indwelling Fernandez catheter: Qualifiers: Encounter type: initial encounter Indwelling urinary catheter type: indwelling urethral catheter Qualified Code(s): T83.511A - Infection and inflammatory reaction due to indwelling urethral catheter, initial encounter; N39.0 - Urinary tract infection, site not specified Code(s): T83.511A - Infection and inflammatory reaction due to indwelling urethral catheter, initial encounter; N39.0 - Urinary tract infection, site not specified Status: Acute Assessment and Plan: Patient had a UTI in March that grew out Klebsiella pneumonia that was sensitive to most antibiotics. He was recently treated for testicular infection by Dr. Paz and was started on Cipro 05/10/20. The patient's Fernandez catheter was changed while he was in the ER. UCx growing Staph aureus so could be the source of the infection (or possibly hematologic spread given the low colony count). (4) Pneumonia: Qualifiers: Laterality: bilateral Lung location: unspecified part of lung Pneumonia type: due to unspecified organism Qualified Code(s): J18.9 - Pneumonia, unspecified organism Code(s): J18.9 - Pneumonia, unspecified organism Status: Acute Assessment and Plan: CXR showing mild opacities in the left mid and lower lung zone suspected of being PNA. COVID test was negative. Started on Rocephin and doxycycline. BCx positive so Vanco added. On RA. Added nebs since COVID negative. CPT. Still could be pulmonary edema given the BNP 2200. Lasix 40mg IV Q12h restarted 05/19 due to increased edema which has improved. Stopped IVF 05/15 and ceftriaxone 05/17. CXR 05/24 reviewed showing atelectasis. (5) Paroxysmal atrial fibrillation with rapid ventricular response: Code(s): I48.0 - Paroxysmal atrial fibrillation Status: Acute Assessment and Plan: No evidence that this is paroxysmal so suspect this is new onset related to the sepsis. Echo in March showing EF 70% with grade I diastolic dysfunction. He was started on Diltiazem 5mg/hour and transitioned to Amiodarone drip. Rate better 05/16 and transitioning to po and now rate control with beta rm only. Continue tele. Eliquis restarted 05/18. (6) Altered mental status: Qualifiers: Altered mental status type: unspecified Qualified Code(s): R41.82 - Altered mental status, unspecified Code(s): R41.82 - Altered mental status, unspecified Status: Acute Assessment and Plan: Patient with toxic encephalopthy related to above. TSH okay. CT brain showing no acute findings. ABG 7.48//. Mental status still waxing and waning with periods of confusion. Continue to try to re-orient. Could be steroid induced as well. Repeated CT brain 05/25 showing no change. (
[2020-05-26] MEDS: COLLAGENASE OINT 30 GM TUBE 1 APPLIC TOPICAL (10:17)
[2020-05-26 11:42] LABS: Glucose Point of Care 160 (65-105)
[2020-05-26] MEDS: DAPTOmycin 500 MG in SODIUM CHLORIDE 0.9% IV 50 ML 100 MG IVPB (11:53)
[2020-05-26 16:56] LABS: Glucose Point of Care 269 (65-105)
[2020-05-26] MEDS: INSULIN ASPART (*BKC) 100 UNITS/ML SUB-Q (16:58)
[2020-05-26] MEDS: MELATONIN 3 MG TABLET PO (21:39)
[2020-05-26] MEDS: INSULIN GLARGINE (*BKC) 100 UNITS/ML 18 UNITS SUB-Q (21:39)
[2020-05-26 21:50] LABS: Glucose Point of Care 283 (65-105)
[2020-05-27] VITALS (19 sets, daily range): BP systolic 104–111; BP diastolic 56–65; PULSE 63–97; RESP 16–20; TEMP 36.3–36.7; O2SAT 94–97
[2020-05-27 06:07] LABS: Basophils Percent Auto 0.1 % (0.2-1.2); Eosinophils Percent Auto 0.2 % (0-4.4); Hematocrit 30.3 % (42.0-52.0); Hemoglobin 10.3 g/dL (14.0-18.0); Immature Granulocyte Absolute 0.16 K/mm3 (0.00-0.031); Immature Granulocyte Percent A 0.9 % (0-0.5); Lymphocytes Absolute Auto 1.13 K/mm3 (0.9-3.2); Lymphocytes Percent Auto 6.6 % (18.3-44.2); Mean Corpuscular Hemoglobin 29.9 pg (26-34); Mean Corpuscular Volume 88.1 fl (80-100); Monocytes Percent Auto 5.7 % (2.6-8.5); Neutrophils Absolute Auto 14.9 K/mm3 (1.3-6.7); Neutrophils Percent Auto 86.5 % (45.5-73.1); Platelet Count Result 329 k/mm3 (150-375); Red Blood Count 3.44 M/mm3 (4.6-6.20); Red Cell Distribution Width 14.3 % (11.5-14.5); White Blood Count 17.2 K/mm3 (4.5-10.0)
[2020-05-27 06:22] LABS: Anion Gap 6 mmol/L (8-16); Blood Urea Nitrogen 31 mg/dL (9-20); Calcium 8.2 mg/dL (8.4-10.2); Carbon Dioxide 31 mmol/L (22-30); Chloride 98 mmol/L (98-107); Estimated CRCL calculation 97 ml/min; Estimated Glomerular Filt Rate > 60; Glucose 242 mg/dL (75-110); Potassium 3.1 mmol/L (3.4-5.0); Sodium 135 mmol/L (137-145)
[2020-05-27] MEDS: METOPROLOL TARTRATE 50 MG TAB PO ×3 (06:29→22:22)
[2020-05-27 07:59] LABS: Glucose Point of Care 202 (65-105)
[2020-05-27] MEDS: APIXABAN 5 MG TABLET PO ×2 (08:37→22:22)
[2020-05-27] MEDS: THIAMINE HCL 100 MG TABLET PO (08:37)
[2020-05-27] MEDS: DEXAMETHASONE 4 MG TABLET PO (08:37)
[2020-05-27] MEDS: ESCITALOPRAM OXALATE 10 MG TABLET PO (08:37)
[2020-05-27] MEDS: FUROSEMIDE INJ 40 MG/4 ML VIAL IV PUSH ×2 (08:37→17:12)
[2020-05-27] MEDS: COLLAGENASE OINT 30 GM TUBE 1 APPLIC TOPICAL (08:38)
[2020-05-27] MEDS: INSULIN ASPART (*BKC) 100 UNITS/ML SUB-Q ×3 (08:39→17:12)
[2020-05-27] MEDS: POTASSIUM CHLORIDE 20 MEQ TABLET 40 MEQ PO (08:42)
[2020-05-27 11:54] LABS: Glucose Point of Care 219 (65-105)
[2020-05-27] MEDS: DAPTOmycin 500 MG in SODIUM CHLORIDE 0.9% IV 50 ML 100 MG IVPB (12:06)
[2020-05-27 16:42] LABS: Glucose Point of Care 288 (65-105)
--- NOTE | 2020-05-27 18:28 | PM.IMPN ---
Progress Note: A&P Assessment and Plan (1) Severe sepsis: Code(s): A41.9 - Sepsis, unspecified organism; R65.20 - Severe sepsis without septic shock Status: Acute Assessment and Plan: Severe sepsis with septicemia. Present on admission with fever, tachycardia, metabolic encephalopathy and lactic acidosis. Thought due to UTI and/or pneumonia. Blood cultures and urine cultures all growing MRSA. Started on Rocephin and Doxycycline with Vanco added 05/14/20. Narrowed to Vanco with final ID. Lactic normalized. Repeat BCx still (+) from 05/16 and 05/20. EVELYN 05/18 showing no veg. Poor prognosis with persistent + BC. ID changed abx to Daptomycin 05/23/20. Now having higher WBC and fever with BCx (05/25) now positive. No fevers but WBC still 17.2K today. Discussed with ID. Continue Daptomycin. (2) Suicidal ideation: Code(s): R45.851 - Suicidal ideations Status: Acute Assessment and Plan: Alaina moved to ICU after expressing suicidal ideation. Patient has since denied this but he is confused at times so unclear if acurrate. Crisis evaluated the patient and he was cleared. (3) UTI (urinary tract infection) due to urinary indwelling Fernandez catheter: Qualifiers: Encounter type: initial encounter Indwelling urinary catheter type: indwelling urethral catheter Qualified Code(s): T83.511A - Infection and inflammatory reaction due to indwelling urethral catheter, initial encounter; N39.0 - Urinary tract infection, site not specified Code(s): T83.511A - Infection and inflammatory reaction due to indwelling urethral catheter, initial encounter; N39.0 - Urinary tract infection, site not specified Status: Acute Assessment and Plan: Patient had a UTI in March that grew out Klebsiella pneumonia that was sensitive to most antibiotics. He was recently treated for testicular infection by Dr. Paz and was started on Cipro 05/10/20. The patient's Fernandez catheter was changed while he was in the ER here. UCx growing Staph aureus so could be the source of the infection (or possibly hematologic spread given the low colony count). Continue current abx. (4) Pneumonia: Qualifiers: Laterality: bilateral Lung location: unspecified part of lung Pneumonia type: due to unspecified organism Qualified Code(s): J18.9 - Pneumonia, unspecified organism Code(s): J18.9 - Pneumonia, unspecified organism Status: Acute Assessment and Plan: CXR showing mild opacities in the left mid and lower lung zone suspected of being PNA. COVID test was negative. Started on Rocephin and doxycycline. BCx positive so Vanco added. Added nebs since COVID negative. CPT started. Still could be pulmonary edema given the BNP 2200. Lasix 40mg IV Q12h restarted 05/19 due to increased edema which has improved. Stopped IVF 05/15 and ceftriaxone 05/17. CXR 05/24 reviewed showing atelectasis. (5) Paroxysmal atrial fibrillation with rapid ventricular response: Code(s): I48.0 - Paroxysmal atrial fibrillation Status: Acute Assessment and Plan: No evidence that this is paroxysmal so suspect this is new onset related to the sepsis. Echo in March showing EF 70% with grade I diastolic dysfunction. He was started on Diltiazem 5mg/hour and transitioned to Amiodarone drip. Rate better 05/16 and transitioning to po and now rate control with beta rm only. Okay to stop tele. Eliquis restarted 05/18. (6) Altered mental status: Qualifiers: Altered mental status type: unspecified Qualified Code(s): R41.82 - Altered mental status, unspecified Code(s): R41.82 - Altered mental status, unspecified Status: Acute Assessment and Plan: Patient with toxic encephalopthy related to above. TSH okay. CT brain showing no acute findings. ABG 7.48//75. Repeat CT brain 05/25 showing no change. Mental status still waxing and waning with periods of confusion. He is
--- NOTE | 2020-05-27 21:02 | ECG_ITS ---
Measurements Intervals [place] Rate: 92 P: TX: 0 QRS: -75 QRSD: 155 T: 115 QT: 484 QTc: 600 Interpretive Statements ATRIAL FIBRILLATION VENTRICULAR COUPLET RIGHT BUNDLE BRANCH BLOCK LEFT ANTERIOR FASCICULAR BLOCK CANNOT RULE OUT SEPTAL INFARCT, AGE INDETERMINATE BASELINE ARTIFACT- AVL, AVF, V1-V3 ABNORMAL ECG Electronically Signed On 05-28-2020 7:00:58 CDT by Deny Cabezas D.O.
[2020-05-27] MEDS: MELATONIN 3 MG TABLET PO (22:22)
[2020-05-27] MEDS: INSULIN GLARGINE (*BKC) 100 UNITS/ML 25 UNITS SUB-Q (22:23)
[2020-05-27 22:44] LABS: Glucose Point of Care > 500 (65-105)
[2020-05-27 22:44] LABS: Glucose Point of Care > 500 (65-105)
[2020-05-27] MEDS: INSULIN ASPART (*BKC) 100 UNITS/ML 12 UNITS SUB-Q (23:33)
[2020-05-27 23:44] LABS: Anion Gap 7 mmol/L (8-16); Blood Urea Nitrogen 40 mg/dL (9-20); Calcium 8.2 mg/dL (8.4-10.2); Carbon Dioxide 30 mmol/L (22-30); Chloride 96 mmol/L (98-107); Estimated CRCL calculation 85 ml/min; Estimated Glomerular Filt Rate > 60; Glucose 479 mg/dL (75-110); Magnesium 2.2 mg/dL (1.6-2.3); Phosphorus 3.9 mg/dL (2.5-4.5); Potassium 3.9 mmol/L (3.4-5.0); Sodium 133 mmol/L (137-145)
[2020-05-28] VITALS (12 sets, daily range): BP systolic 100–125; BP diastolic 60–67; PULSE 43–107; RESP 16–20; TEMP 36.2–36.7; O2SAT 97–99
[2020-05-28 02:23] LABS: Glucose Point of Care 363 (65-105)
[2020-05-28] MEDS: METOPROLOL TARTRATE 50 MG TAB PO ×3 (06:54→21:22)
[2020-05-28 08:01] LABS: Glucose Point of Care 255 (65-105)
[2020-05-28] MEDS: ESCITALOPRAM OXALATE 10 MG TABLET PO (08:41)
[2020-05-28] MEDS: FUROSEMIDE INJ 40 MG/4 ML VIAL IV PUSH ×3 (08:42→21:21)
[2020-05-28] MEDS: APIXABAN 5 MG TABLET PO ×2 (08:42→21:20)
[2020-05-28] MEDS: GLIMEPIRIDE 2 MG TABLET PO (08:42)
[2020-05-28] MEDS: THIAMINE HCL 100 MG TABLET PO (08:42)
[2020-05-28] MEDS: DEXAMETHASONE 2 MG TABLET PO (08:43)
[2020-05-28] MEDS: COLLAGENASE OINT 30 GM TUBE 1 APPLIC TOPICAL (08:43)
[2020-05-28] MEDS: INSULIN ASPART (*BKC) 100 UNITS/ML SUB-Q ×2 (08:46→17:12)
--- NOTE | 2020-05-28 11:21 | PCRCNOTE ---
Window of time for administration has passed. See next scheduled administration.
[2020-05-28 11:54] LABS: Glucose Point of Care 197 (65-105)
[2020-05-28] MEDS: DAPTOmycin 500 MG in SODIUM CHLORIDE 0.9% IV 50 ML 100 MG IVPB (12:08)
--- NOTE | 2020-05-28 13:43 | PM.IMPN ---
Progress Note: A&P Assessment and Plan (1) Severe sepsis: Code(s): A41.9 - Sepsis, unspecified organism; R65.20 - Severe sepsis without septic shock Status: Acute Assessment and Plan: Severe sepsis with septicemia with MRSA. Present on admission with fever, tachycardia, metabolic encephalopathy and lactic acidosis. Thought due to UTI and/or pneumonia. Blood cultures and urine cultures all growing MRSA. Started on Rocephin and Doxycycline with Vanco added 05/14/20. Narrowed to Vanco with final ID. Lactic normalized. Repeat BCx still (+) from 05/16 and 05/20. EVELYN 05/18 showing no veg. Poor prognosis with persistent + BC. ID changed abx to Daptomycin 05/23/20. Now having higher WBC and fever with BCx (05/25) now positive. No fevers but WBC still 17.2K. Continue Daptomycin. Repeat BCx. (2) Suicidal ideation: Code(s): R45.851 - Suicidal ideations Status: Acute Assessment and Plan: Alaina moved to ICU after expressing suicidal ideation. Patient has since denied this but he is confused at times so unclear if acurrate. Crisis evaluated the patient and he was cleared. (3) UTI (urinary tract infection) due to urinary indwelling Fernandez catheter: Qualifiers: Encounter type: initial encounter Indwelling urinary catheter type: indwelling urethral catheter Qualified Code(s): T83.511A - Infection and inflammatory reaction due to indwelling urethral catheter, initial encounter; N39.0 - Urinary tract infection, site not specified Code(s): T83.511A - Infection and inflammatory reaction due to indwelling urethral catheter, initial encounter; N39.0 - Urinary tract infection, site not specified Status: Acute Assessment and Plan: Patient had a UTI in March that grew out Klebsiella pneumonia that was sensitive to most antibiotics. He was recently treated for testicular infection by Dr. Paz and was started on Cipro 05/10/20. The patient's Fernandez catheter was changed while he was in the ER here. UCx growing Staph aureus so could be the source of the infection (or possibly hematologic spread given the low colony count). Continue current abx. (4) Pneumonia: Qualifiers: Laterality: bilateral Lung location: unspecified part of lung Pneumonia type: due to unspecified organism Qualified Code(s): J18.9 - Pneumonia, unspecified organism Code(s): J18.9 - Pneumonia, unspecified organism Status: Acute Assessment and Plan: CXR showing mild opacities in the left mid and lower lung zone suspected of being PNA. COVID test was negative. Started on Rocephin and doxycycline. BCx positive so Vanco added. Added nebs since COVID negative. CPT started. Still could be pulmonary edema given the BNP 2200. Lasix 40mg IV Q12h restarted 05/19 due to increased edema which has improved. Stopped IVF 05/15 and ceftriaxone 05/17. CXR 05/24 reviewed showing atelectasis. (5) Paroxysmal atrial fibrillation with rapid ventricular response: Code(s): I48.0 - Paroxysmal atrial fibrillation Status: Acute Assessment and Plan: No evidence that this is paroxysmal so suspect this is new onset related to the sepsis. Echo in March showing EF 70% with grade I diastolic dysfunction. He was started on Diltiazem 5mg/hour and transitioned to Amiodarone drip. Rate better 05/16 and transitioning to po and now rate control with beta rm only. Contineu Eliquis. Advance Lasix to improve fluid status. (6) Altered mental status: Qualifiers: Altered mental status type: unspecified Qualified Code(s): R41.82 - Altered mental status, unspecified Code(s): R41.82 - Altered mental status, unspecified Status: Acute Assessment and Plan: Patient with toxic encephalopthy related to above. TSH okay. CT brain showing no acute findings. ABG 7.48//75. Repeat CT brain 05/25 showing no change. Mental status still waxing and waning but overall improving
[2020-05-28 16:46] LABS: Glucose Point of Care 281 (65-105)
[2020-05-28] MEDS: MELATONIN 3 MG TABLET PO (21:20)
[2020-05-28] MEDS: INSULIN GLARGINE (*BKC) 100 UNITS/ML 30 UNITS SUB-Q (21:20)
[2020-05-28 21:40] LABS: Glucose Point of Care 244 (65-105)
[2020-05-29] VITALS (12 sets, daily range): BP systolic 111–114; BP diastolic 59–77; PULSE 60–111; RESP 14–20; TEMP 36.7–37.1; O2SAT 99–100
[2020-05-29 06:04] LABS: Basophils Percent Auto 0.2 % (0.2-1.2); Eosinophils Absolute Auto 0.1 K/mm3 (0-0.3); Eosinophils Percent Auto 0.6 % (0-4.4); Hematocrit 30.1 % (42.0-52.0); Hemoglobin 10.3 g/dL (14.0-18.0); Immature Granulocyte Absolute 0.26 K/mm3 (0.00-0.031); Immature Granulocyte Percent A 1.4 % (0-0.5); Lymphocytes Absolute Auto 1.26 K/mm3 (0.9-3.2); Lymphocytes Percent Auto 6.6 % (18.3-44.2); Mean Corpuscular HGB Conc 34.2 g/dl (32-36); Mean Corpuscular Hemoglobin 29.8 pg (26-34); Mean Platelet Volume 10.3 fl (7.4-10.4); Monocytes Absolute Auto 1.3 K/mm3 (0.1-0.6); Monocytes Percent Auto 6.8 % (2.6-8.5); Neutrophils Absolute Auto 16.2 K/mm3 (1.3-6.7); Neutrophils Percent Auto 84.4 % (45.5-73.1); Platelet Count Result 363 k/mm3 (150-375); Red Blood Count 3.46 M/mm3 (4.6-6.20); Red Cell Distribution Width 14.4 % (11.5-14.5); White Blood Count 19.2 K/mm3 (4.5-10.0)
[2020-05-29] MEDS: FUROSEMIDE INJ 40 MG/4 ML VIAL IV PUSH ×3 (06:22→21:11)
[2020-05-29] MEDS: METOPROLOL TARTRATE 50 MG TAB PO ×3 (06:27→21:10)
[2020-05-29 07:30] LABS: Glucose Point of Care 81 (65-105)
[2020-05-29] MEDS: ESCITALOPRAM OXALATE 10 MG TABLET PO (08:33)
[2020-05-29] MEDS: GLIMEPIRIDE 2 MG TABLET PO (08:33)
[2020-05-29] MEDS: APIXABAN 5 MG TABLET PO ×2 (08:33→21:09)
[2020-05-29] MEDS: THIAMINE HCL 100 MG TABLET PO (08:33)
[2020-05-29] MEDS: DEXAMETHASONE 2 MG TABLET PO (08:33)
[2020-05-29] MEDS: COLLAGENASE OINT 30 GM TUBE 1 APPLIC TOPICAL (08:34)
[2020-05-29 09:00] LABS: Anion Gap 6 mmol/L (8-16); Blood Urea Nitrogen 32 mg/dL (9-20); CRP 8.2 mg/dL (<1.0); Calcium 8.3 mg/dL (8.4-10.2); Carbon Dioxide 33 mmol/L (22-30); Chloride 96 mmol/L (98-107); Estimated CRCL calculation 98 ml/min; Estimated Glomerular Filt Rate > 60; Glucose 93 mg/dL (75-110); Potassium 3.1 mmol/L (3.4-5.0); Sodium 135 mmol/L (137-145)
--- NOTE | 2020-05-29 11:27 | PCNFU ---
Nutrition Follow-Up Complete: Inadequate oral intake related to poor appetite as evidenced by patient report and average meal consumption of 46% Goal: Patient to consume 75% or more of meals and supplements Progressing towards goal. We will continue current goal. Pt current nutrition is Soft, Bite Sized, Level 6,DBCC. Nutrition recommendation: Agree at this time. Last recorded weight is 111.8 kg. Bowel Motility:+BM reported 05/28 Labs Reviewed:Hgb 10.3,Hct 30.1 Meds Noted:Amaryl, Lantus, Vit B1, Lexapro,Lasix Additional Notes: Spoke with nursing today, patient was a feeder for breakfast meal today eating biscuits/doe,eggs and sausage 60% reported. Patient mumbling words, total assist with PT today. Swallowing screen noted 2/2 to family wanting diet changed. Patient continues to receiving Fabrice BID and Thrive BID for additional kcal and protein needs due to wounds. Monitoring: Follow up in 3 days
[2020-05-29 11:29] LABS: Glucose Point of Care 99 (65-105)
[2020-05-29] MEDS: DAPTOmycin 500 MG in SODIUM CHLORIDE 0.9% IV 50 ML 100 MG IVPB (12:07)
--- NOTE | 2020-05-29 13:10 | PCSTNOTE ---
Pt. seen for repeat bedside swallow evaluation and diet upgrade recommended to regular (level 7) with thin liquids. Please see swallow precautions and recommendations for further details.
--- NOTE | 2020-05-29 13:45 | PM.IMPN ---
Progress Note: A&P Assessment and Plan (1) Severe sepsis: Code(s): A41.9 - Sepsis, unspecified organism; R65.20 - Severe sepsis without septic shock Status: Acute Assessment and Plan: Severe sepsis with septicemia with MRSA. Present on admission with fever, tachycardia, metabolic encephalopathy and lactic acidosis. Thought due to UTI and/or pneumonia. Blood cultures and urine cultures all growing MRSA. Started on Rocephin and Doxycycline with Vanco added 05/14/20. Narrowed to Vanco with final ID. Lactic normalized. Repeat BCx still (+) from 05/16 and 05/20. EVELYN 05/18 showing no veg. Poor prognosis with persistent + BC. ID changed abx to Daptomycin 05/23/20. Now having higher WBC and fever with BCx (05/25) now positive. No fevers but WBC up to 19K. BCx repeated 05/28 NGTD. Continue Daptomycin. (2) Suicidal ideation: Code(s): R45.851 - Suicidal ideations Status: Acute Assessment and Plan: Alaina moved to ICU after expressing suicidal ideation. Patient has since denied this but he is confused at times so unclear if acurrate. Crisis evaluated the patient and he was cleared. (3) UTI (urinary tract infection) due to urinary indwelling Fernandez catheter: Qualifiers: Indwelling urinary catheter type: indwelling urethral catheter Encounter type: initial encounter Qualified Code(s): T83.511A - Infection and inflammatory reaction due to indwelling urethral catheter, initial encounter; N39.0 - Urinary tract infection, site not specified Code(s): T83.511A - Infection and inflammatory reaction due to indwelling urethral catheter, initial encounter; N39.0 - Urinary tract infection, site not specified Status: Acute Assessment and Plan: Patient had a UTI in March that grew out Klebsiella pneumonia that was sensitive to most antibiotics. He was recently treated for testicular infection by Dr. Paz and was started on Cipro 05/10/20. The patient's Fernandez catheter was changed while he was in the ER here. UCx growing Staph aureus so could be the source of the infection (or possibly hematologic spread given the low colony count). Continue current abx. (4) Pneumonia: Qualifiers: Laterality: bilateral Lung location: unspecified part of lung Pneumonia type: due to unspecified organism Qualified Code(s): J18.9 - Pneumonia, unspecified organism Code(s): J18.9 - Pneumonia, unspecified organism Status: Acute Assessment and Plan: CXR showing mild opacities in the left mid and lower lung zone suspected of being PNA. COVID test was negative. Started on Rocephin and doxycycline. BCx positive so Vanco added. Added nebs since COVID negative. CPT started. Still could be pulmonary edema given the BNP 2200. Lasix 40mg IV Q12h restarted 05/19 due to increased edema which has improved. Stopped IVF 05/15 and ceftriaxone 05/17. CXR 05/24 reviewed showing atelectasis. Remains on room air. (5) Paroxysmal atrial fibrillation with rapid ventricular response: Code(s): I48.0 - Paroxysmal atrial fibrillation Status: Acute Assessment and Plan: No evidence that this is paroxysmal so suspect this is new onset related to the sepsis. Echo in March showing EF 70% with grade I diastolic dysfunction. He was started on Diltiazem 5mg/hour and transitioned to Amiodarone drip. Rate better 05/16 and transitioning to po and now rate control with beta rm only. Continue Eliquis. Fluid status better overall but will continue Lasix IV to improve fluid status for 1-2 more days. Renal function okay (6) Altered mental status: Qualifiers: Altered mental status type: unspecified Qualified Code(s): R41.82 - Altered mental status, unspecified Code(s): R41.82 - Altered mental status, unspecified Status: Acute Assessment and Plan: Patient with toxic encephalopthy related to above. TSH okay. CT brain showing no acute findings. ABG 7
[2020-05-29] MEDS: POTASSIUM CHLORIDE 20 MEQ TABLET 40 MEQ PO (14:24)
[2020-05-29 16:53] LABS: Glucose Point of Care 167 (65-105)
[2020-05-29] MEDS: MELATONIN 3 MG TABLET PO (21:10)
[2020-05-29] MEDS: ACETAMINOPHEN 325 MG TABLET 650 MG PO (21:10)
[2020-05-29 21:17] LABS: Glucose Point of Care 293 (65-105)
[2020-05-29] MEDS: INSULIN GLARGINE (*BKC) 100 UNITS/ML 20 UNITS SUB-Q (21:17)
[2020-05-30] VITALS (9 sets, daily range): BP systolic 98–119; BP diastolic 50–81; PULSE 65–100; RESP 16–20; TEMP 36.4–37; O2SAT 96–100
[2020-05-30] MEDS: METOPROLOL TARTRATE 50 MG TAB PO ×2 (05:11→21:04)
[2020-05-30] MEDS: FUROSEMIDE INJ 40 MG/4 ML VIAL IV PUSH ×3 (05:11→21:04)
[2020-05-30 05:34] LABS: Glucose Point of Care 136 (65-105)
[2020-05-30 06:15] LABS: Basophils Percent Auto 0.1 % (0.2-1.2); Eosinophils Absolute Auto 0.1 K/mm3 (0-0.3); Eosinophils Percent Auto 0.6 % (0-4.4); Hematocrit 27.9 % (42.0-52.0); Hemoglobin 9.5 g/dL (14.0-18.0); Immature Granulocyte Absolute 0.22 K/mm3 (0.00-0.031); Immature Granulocyte Percent A 1.3 % (0-0.5); Lymphocytes Absolute Auto 1.29 K/mm3 (0.9-3.2); Lymphocytes Percent Auto 7.4 % (18.3-44.2); Mean Corpuscular HGB Conc 34.1 g/dl (32-36); Mean Corpuscular Hemoglobin 29.6 pg (26-34); Mean Corpuscular Volume 86.9 fl (80-100); Mean Platelet Volume 10.3 fl (7.4-10.4); Monocytes Absolute Auto 0.9 K/mm3 (0.1-0.6); Monocytes Percent Auto 5.2 % (2.6-8.5); Neutrophils Percent Auto 85.4 % (45.5-73.1); Platelet Count Result 263 k/mm3 (150-375); Red Blood Count 3.21 M/mm3 (4.6-6.20); Red Cell Distribution Width 14.5 % (11.5-14.5); White Blood Count 17.5 K/mm3 (4.5-10.0)
[2020-05-30 06:28] LABS: Alanine Aminotransferase 30 U/L (4-50); Albumin Level 2.5 g/dL (3.5-5.1); Alkaline Phosphatase 85 U/L (38-126); Anion Gap 5 mmol/L (8-16); Aspartate Amino Transferase 31 U/L (17-59); Bilirubin,Total 0.8 mg/dL (0.2-1.3); Blood Urea Nitrogen 36 mg/dL (9-20); Carbon Dioxide 30 mmol/L (22-30); Chloride 100 mmol/L (98-107); Estimated CRCL calculation 111 ml/min; Estimated Glomerular Filt Rate > 60; Glucose 125 mg/dL (75-110); Magnesium 2.1 mg/dL (1.6-2.3); Phosphorus 3.7 mg/dL (2.5-4.5); Potassium 3.6 mmol/L (3.4-5.0); Sodium 135 mmol/L (137-145)
[2020-05-30 08:21] LABS: Glucose Point of Care 134 (65-105)
[2020-05-30] MEDS: DEXAMETHASONE 2 MG TABLET PO (08:54)
[2020-05-30] MEDS: GLIMEPIRIDE 2 MG TABLET PO (08:54)
[2020-05-30] MEDS: THIAMINE HCL 100 MG TABLET PO (08:54)
[2020-05-30] MEDS: ESCITALOPRAM OXALATE 10 MG TABLET PO (08:54)
[2020-05-30] MEDS: APIXABAN 5 MG TABLET PO ×2 (08:54→21:01)
[2020-05-30] MEDS: COLLAGENASE OINT 30 GM TUBE 1 APPLIC TOPICAL (08:55)
[2020-05-30 11:49] LABS: Glucose Point of Care 99 (65-105)
[2020-05-30] MEDS: DAPTOmycin 500 MG in SODIUM CHLORIDE 0.9% IV 50 ML 100 MG IVPB (12:44)
--- NOTE | 2020-05-30 15:30 | PM.IMPN ---
Progress Note: A&P Assessment and Plan (1) Severe sepsis: Code(s): A41.9 - Sepsis, unspecified organism; R65.20 - Severe sepsis without septic shock Status: Acute Assessment and Plan: Severe sepsis with septicemia with MRSA. Present on admission with fever, tachycardia, metabolic encephalopathy and lactic acidosis. Thought due to UTI and/or pneumonia. Blood cultures and urine cultures all growing MRSA. Started on Rocephin and Doxycycline with Vanco added 05/14/20. Narrowed to Vanco with final ID. Lactic normalized. Repeat BCx still (+) from 05/16 and 05/20. EVELYN 05/18 showing no veg. Poor prognosis with persistent + BC. ID changed abx to Daptomycin 05/23/20. Now having higher WBC and fever with BCx (05/25 and 05/28) now positive. No fevers but WBC still 17.5K. Continue Daptomycin. (2) Suicidal ideation: Code(s): R45.851 - Suicidal ideations Status: Acute Assessment and Plan: Alaina moved to ICU after expressing suicidal ideation. Patient has since denied this but he is confused at times so unclear if acurrate. Crisis evaluated the patient and he was cleared. (3) UTI (urinary tract infection) due to urinary indwelling Fernandez catheter: Qualifiers: Indwelling urinary catheter type: indwelling urethral catheter Encounter type: initial encounter Qualified Code(s): T83.511A - Infection and inflammatory reaction due to indwelling urethral catheter, initial encounter; N39.0 - Urinary tract infection, site not specified Code(s): T83.511A - Infection and inflammatory reaction due to indwelling urethral catheter, initial encounter; N39.0 - Urinary tract infection, site not specified Status: Acute Assessment and Plan: Patient had a UTI in March that grew out Klebsiella pneumonia that was sensitive to most antibiotics. He was recently treated for testicular infection by Dr. Paz and was started on Cipro 05/10/20. The patient's Fernandez catheter was changed while he was in the ER here. UCx growing Staph aureus so could be the source of the infection (or possibly hematologic spread given the low colony count). Continue current abx. (4) Pneumonia: Qualifiers: Laterality: bilateral Lung location: unspecified part of lung Pneumonia type: due to unspecified organism Qualified Code(s): J18.9 - Pneumonia, unspecified organism Code(s): J18.9 - Pneumonia, unspecified organism Status: Acute Assessment and Plan: CXR showing mild opacities in the left mid and lower lung zone suspected of being PNA. COVID test was negative. Started on Rocephin and doxycycline. BCx positive so Vanco added. Added nebs since COVID negative. CPT started. Still could be pulmonary edema given the BNP 2200. Lasix 40mg IV Q12h restarted 05/19 due to increased edema which has improved. Stopped IVF 05/15 and ceftriaxone 05/17. CXR 05/24 reviewed showing atelectasis. (5) Paroxysmal atrial fibrillation with rapid ventricular response: Code(s): I48.0 - Paroxysmal atrial fibrillation Status: Acute Assessment and Plan: No evidence that this is paroxysmal so suspect this is new onset related to the sepsis. Echo in March showing EF 70% with grade I diastolic dysfunction. He was started on Diltiazem 5mg/hour and transitioned to Amiodarone drip. Rate better 05/16 and transitioning to po and now rate control with beta rm only. Contineu Eliquis. Advance Lasix to improve fluid status. (6) Altered mental status: Qualifiers: Altered mental status type: unspecified Qualified Code(s): R41.82 - Altered mental status, unspecified Code(s): R41.82 - Altered mental status, unspecified Status: Acute Assessment and Plan: Patient with toxic encephalopthy related to above. TSH okay. CT brain showing no acute findings. ABG 7.48//75. Repeat CT brain 05/25 showing no change. Mental status still waxing and waning but overall improving.
[2020-05-30 16:48] LABS: Glucose Point of Care 133 (65-105)
[2020-05-30] MEDS: INSULIN GLARGINE (*BKC) 100 UNITS/ML 20 UNITS SUB-Q (20:59)
[2020-05-30] MEDS: MELATONIN 3 MG TABLET PO (21:01)
[2020-05-30] MEDS: ACETAMINOPHEN 325 MG TABLET 650 MG PO (21:01)
[2020-05-30 22:03] LABS: Glucose Point of Care 308 (65-105)
[2020-05-31] VITALS (11 sets, daily range): BP systolic 106–116; BP diastolic 59–65; PULSE 76–109; RESP 14–20; TEMP 36.3–37.3; O2SAT 98–99
[2020-05-31] MEDS: FUROSEMIDE INJ 40 MG/4 ML VIAL IV PUSH ×3 (05:16→23:00)
[2020-05-31 06:55] LABS: Potassium 3.2 mmol/L (3.4-5.0)
[2020-05-31 07:07] LABS: Anion Gap 5 mmol/L (8-16); Blood Urea Nitrogen 39 mg/dL (9-20); Calcium 7.9 mg/dL (8.4-10.2); Carbon Dioxide 29 mmol/L (22-30); Chloride 102 mmol/L (98-107); Estimated CRCL calculation 114 ml/min; Estimated Glomerular Filt Rate > 60; Glucose 101 mg/dL (75-110); Sodium 136 mmol/L (137-145)
[2020-05-31 08:03] LABS: Glucose Point of Care 85 (65-105)
[2020-05-31] MEDS: DEXAMETHASONE 2 MG TABLET PO (08:35)
[2020-05-31] MEDS: ESCITALOPRAM OXALATE 10 MG TABLET PO (08:35)
[2020-05-31] MEDS: POTASSIUM CHLORIDE 20 MEQ TABLET 40 MEQ PO ×2 (08:35→12:31)
[2020-05-31] MEDS: THIAMINE HCL 100 MG TABLET PO (08:35)
[2020-05-31] MEDS: COLLAGENASE OINT 30 GM TUBE 1 APPLIC TOPICAL (08:35)
[2020-05-31] MEDS: APIXABAN 5 MG TABLET PO ×2 (08:35→20:45)
[2020-05-31] MEDS: METOPROLOL TARTRATE 50 MG TAB PO ×2 (08:36→20:45)
[2020-05-31 10:31] LABS: Basophils Percent Auto 0.1 % (0.2-1.2); Eosinophils Absolute Auto 0.2 K/mm3 (0-0.3); Eosinophils Percent Auto 1.1 % (0-4.4); Hematocrit 28.6 % (42.0-52.0); Hemoglobin 9.6 g/dL (14.0-18.0); Immature Granulocyte Percent A 1.2 % (0-0.5); Lymphocytes Absolute Auto 1.29 K/mm3 (0.9-3.2); Lymphocytes Percent Auto 7.8 % (18.3-44.2); Mean Corpuscular HGB Conc 33.6 g/dl (32-36); Mean Corpuscular Hemoglobin 29.9 pg (26-34); Mean Corpuscular Volume 89.1 fl (80-100); Mean Platelet Volume 10.2 fl (7.4-10.4); Monocytes Absolute Auto 0.7 K/mm3 (0.1-0.6); Monocytes Percent Auto 4.4 % (2.6-8.5); Neutrophils Absolute Auto 14.1 K/mm3 (1.3-6.7); Neutrophils Percent Auto 85.4 % (45.5-73.1); Platelet Count Result 276 k/mm3 (150-375); Red Blood Count 3.21 M/mm3 (4.6-6.20); Red Cell Distribution Width 14.6 % (11.5-14.5); White Blood Count 16.5 K/mm3 (4.5-10.0)
[2020-05-31 11:49] LABS: Glucose Point of Care 97 (65-105)
[2020-05-31] MEDS: DAPTOmycin 500 MG in SODIUM CHLORIDE 0.9% IV 50 ML 100 MG IVPB (12:28)
--- NOTE | 2020-05-31 14:35 | PCOTNOTE ---
Attempted Re-assessment this date. Patient change in medical status. Hold Re-assess until medically appropriate.
--- NOTE | 2020-05-31 14:50 | PCPTNOTE ---
Attempted PT reeval. Eval held as pt had change in medical status and possible hospice consult. Will follow.
--- NOTE | 2020-05-31 15:43 | PM.IMPN ---
Progress Note: A&P Assessment and Plan (1) Severe sepsis: Code(s): A41.9 - Sepsis, unspecified organism; R65.20 - Severe sepsis without septic shock Status: Acute Assessment and Plan: Severe sepsis with septicemia with MRSA. Present on admission with fever, tachycardia, metabolic encephalopathy and lactic acidosis. Thought due to UTI and/or pneumonia. Blood cultures and urine cultures all growing MRSA. Started on Rocephin and Doxycycline with Vanco added 05/14/20. Narrowed to Vanco with final ID. Lactic normalized. Repeat BCx still (+) from 05/16 and 05/20. EVELYN 05/18 showing no veg. Poor prognosis with persistent + BC. ID changed abx to Daptomycin 05/23/20. with BCx (05/25 and 05/28) still positive. No fevers but WBC still 16K. Continue Daptomycin after discussion with ID. (2) Suicidal ideation: Code(s): R45.851 - Suicidal ideations Status: Acute Assessment and Plan: Alaina moved to ICU after expressing suicidal ideation. Patient has since denied this but he is confused at times so unclear if acurrate. Crisis evaluated the patient and he was cleared. (3) UTI (urinary tract infection) due to urinary indwelling Fernandez catheter: Qualifiers: Encounter type: initial encounter Indwelling urinary catheter type: indwelling urethral catheter Qualified Code(s): T83.511A - Infection and inflammatory reaction due to indwelling urethral catheter, initial encounter; N39.0 - Urinary tract infection, site not specified Code(s): T83.511A - Infection and inflammatory reaction due to indwelling urethral catheter, initial encounter; N39.0 - Urinary tract infection, site not specified Status: Acute Assessment and Plan: Patient had a UTI in March that grew out Klebsiella pneumonia that was sensitive to most antibiotics. He was recently treated for testicular infection by Dr. aPz and was started on Cipro 05/10/20. The patient's Fernandez catheter was changed while he was in the ER here. UCx growing Staph aureus so could be the source of the infection (or possibly hematologic spread given the low colony count). Continue current abx. (4) Pneumonia: Qualifiers: Laterality: bilateral Lung location: unspecified part of lung Pneumonia type: due to unspecified organism Qualified Code(s): J18.9 - Pneumonia, unspecified organism Code(s): J18.9 - Pneumonia, unspecified organism Status: Acute Assessment and Plan: CXR showing mild opacities in the left mid and lower lung zone suspected of being PNA. COVID test was negative. Started on Rocephin and doxycycline. BCx positive so Vanco added. Added nebs since COVID negative. CPT started. Still could be pulmonary edema given the BNP 2200. Lasix 40mg IV Q12h restarted 05/19 due to increased edema which has improved. Stopped IVF 05/15 and ceftriaxone 05/17. CXR 05/24 reviewed showing atelectasis. (5) Paroxysmal atrial fibrillation with rapid ventricular response: Code(s): I48.0 - Paroxysmal atrial fibrillation Status: Acute Assessment and Plan: No evidence that this is paroxysmal so suspect this is new onset related to the sepsis. Echo in March showing EF 70% with grade I diastolic dysfunction. He was started on Diltiazem 5mg/hour and transitioned to Amiodarone drip. Rate better 05/16 and transitioning to po and now rate control with beta rm only. Contineu Eliquis. Lasix IV still to improve fluid status. (6) Altered mental status: Qualifiers: Altered mental status type: unspecified Qualified Code(s): R41.82 - Altered mental status, unspecified Code(s): R41.82 - Altered mental status, unspecified Status: Acute Assessment and Plan: Patient with toxic encephalopthy related to above. TSH okay. CT brain showing no acute findings. ABG 7.48//75. Repeat CT brain 05/25 showing no change. Mental status still waxing and waning but overall improving. Con
--- NOTE | 2020-05-31 16:43 | WPDINFPN2 ---
Progress Note: A&P Assessment and Plan (1) Staphylococcus aureus bacteremia with sepsis: Code(s): A41.01 - Sepsis due to Methicillin susceptible Staphylococcus aureus Status: Acute Assessment and Plan: 1. MRSA bacteremia with infection, persistent + 2. 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 Original source of # 1 is either urine or skin 4. Suicidal ideation 5. Nausea 6. Breakthrough fever due to #1 REC (antibiotic #18) Daptomycin #9, continue. Anticipate 6 weeks, through 06/25 tentatively. Poor prognosis. Disucssed Subjective Date/time seen: 05/31/20 16:43 Interval history: confused Exam Narrative: Exam Narrative: afebrile Const: General: no acute distress Eyes: General: appearance normal, both eyes and all related structures Resp: Effort & Inspection: normal respiratory effort Auscultation: clear to auscultation bilaterally Cardio: Rate: regular rate Rhythm: regular rhythm Heart sounds: no murmurs GI: GI Palp: Yes Soft to palpation and No Tenderness to palpation present (GI) Skin: General skin exam: normal color and no rashes or lesions noted Objective Data Vital Signs Vital Signs: Vital Signs - 24 hr 05/30/20 19:36 05/30/20 19:45 05/30/20 21:04 Temperature Pulse Rate 77 81 65 Respiratory Rate 20 20 Blood Pressure Pulse Oximetry 05/30/20 21:56 05/31/20 06:00 05/31/20 08:36 Temperature 37.0 C 36.6 C Pulse Rate 65 81 76 Respiratory Rate 18 20 Blood Pressure 110/50 L 112/62 Pulse Oximetry 96 98 05/31/20 10:20 05/31/20 10:28 05/31/20 14:00 Temperature 36.3 C L Pulse Rate 78 80 78 Respiratory Rate 20 20 16 Blood Pressure 106/65 Pulse Oximetry 98 05/31/20 15:22 05/31/20 15:29 Temperature Pulse Rate 76 84 Respiratory Rate 18 18 Blood Pressure Pulse Oximetry Intake/Output Intake/Output: Intake & Output 05/28/20 05/29/20 05/30/20 05/31/20 23:59 23:59 23:59 23:59 Intake Total 1100 1800 420 515 Output Total 1150 9660 1450 300 Balance -50 -1500 -1030 215 Meds/Results Medications: Active Medications Generic Name Dose Route Start Last Admin Trade Name Layla PRN Reason Stop Dose Admin Acetaminophen 650 mg 05/19/20 11:43 05/30/20 21:01 Tylenol Tablet PO 650 mg Q6H PRN Administration Mild Pain (1-3) or Fever Apixaban 5 mg 05/18/20 23:00 05/31/20 08:35 Eliquis PO 5 mg Q12HR STALIN Administration Collagenase 1 applic 05/15/20 09:00 05/31/20 08:35 Santyl Oint TOPICAL 1 applic DAILY STALIN Administration Dexamethasone 2 mg 05/28/20 08:00 05/31/20 08:35 Dexamethasone Po PO 2 mg DAILY@0800 STALIN Administration Dextrose 12.5 gm 05/14/20 00:48 Dextrose 50% Syringe IV PUSH PRN PRN Hypoglycemia Protocol Escitalopram Oxalate 10 mg 05/21/20 09:00 05/31/20 08:35 Lexapro PO 10 mg DAILY STALIN Administration Furosemide 40 mg 05/28/20 14:00 05/31/20 15:44 Lasix Inj IV PUSH 40 mg Q8HR STALIN Administration Glucagon 1 mg 05/14/20 00:48 Glucagon For Inj IM PRN PRN Hypoglycemia Protocol Glucose 15 gm 05/14/20 00:48 Glutose 15 PO PRN PRN Hypoglycemia Protocol Dextrose 1,000 mls @ 100 mls/hr 05/14/20 00:48 Dextrose 5% 1,000 Ml IVPB PRN PRN Hypoglycemia Protocol Daptomycin 500 mg/ Sodium 50 mls @ 100 mls/hr 05/23/20 12:35 05/31/20 12:58 Chloride IVPB Infused NOON STALIN Infusion Insulin Aspart 3 - 6 units 05/14/20 08:00 05/31/20 16:23 Novolog SUB-Q Not Given TIDWM [facility] Protocol Insulin Glargine 20 units 05/29/20 21:00 05/30/20 20:59 Lantus SUB-Q 20 units HS STALIN Administration Levalbuterol HCl 1.25 mg 05/26/20 08:00 05/31/20 15:20 Xopenex 1.25 Mg/0.5 Ml INH
[2020-05-31 17:19] LABS: Glucose Point of Care 144 (65-105)
[2020-05-31] MEDS: MELATONIN 3 MG TABLET PO (20:45)
[2020-05-31] MEDS: ACETAMINOPHEN 325 MG TABLET 650 MG PO (20:46)
[2020-05-31] MEDS: INSULIN GLARGINE (*BKC) 100 UNITS/ML 20 UNITS SUB-Q (20:46)
[2020-05-31 23:10] LABS: Glucose Point of Care 193 (65-105)
[2020-06-01] VITALS (11 sets, daily range): BP systolic 98–123; BP diastolic 52–59; PULSE 80–89; RESP 16–20; TEMP 36–36.9; O2SAT 100
[2020-06-01] MEDS: FUROSEMIDE INJ 40 MG/4 ML VIAL IV PUSH ×3 (05:37→21:12)
[2020-06-01 07:41] LABS: Glucose Point of Care 93 (65-105)
[2020-06-01] MEDS: DEXAMETHASONE 2 MG TABLET PO (08:46)
[2020-06-01] MEDS: THIAMINE HCL 100 MG TABLET PO (08:46)
[2020-06-01] MEDS: ESCITALOPRAM OXALATE 10 MG TABLET PO (08:46)
[2020-06-01] MEDS: METOPROLOL TARTRATE 50 MG TAB PO ×2 (08:46→21:12)
[2020-06-01] MEDS: APIXABAN 5 MG TABLET PO ×2 (08:46→21:12)
[2020-06-01] MEDS: COLLAGENASE OINT 30 GM TUBE 1 APPLIC TOPICAL (08:47)
[2020-06-01 08:55] LABS: Basophils Percent Auto 0.1 % (0.2-1.2); Eosinophils Absolute Auto 0.2 K/mm3 (0-0.3); Hemoglobin 10.1 g/dL (14.0-18.0); Immature Granulocyte Absolute 0.16 K/mm3 (0.00-0.031); Lymphocytes Absolute Auto 1.35 K/mm3 (0.9-3.2); Lymphocytes Percent Auto 8.6 % (18.3-44.2); Mean Corpuscular HGB Conc 32.6 g/dl (32-36); Mean Corpuscular Hemoglobin 29.6 pg (26-34); Mean Corpuscular Volume 90.9 fl (80-100); Mean Platelet Volume 10.2 fl (7.4-10.4); Monocytes Absolute Auto 0.8 K/mm3 (0.1-0.6); Monocytes Percent Auto 4.8 % (2.6-8.5); Neutrophils Absolute Auto 13.3 K/mm3 (1.3-6.7); Neutrophils Percent Auto 84.5 % (45.5-73.1); Platelet Count Result 278 k/mm3 (150-375); Red Blood Count 3.41 M/mm3 (4.6-6.20); White Blood Count 15.7 K/mm3 (4.5-10.0)
--- NOTE | 2020-06-01 11:17 | WPDCDIQUERY2 ---
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 Please clarify if there is a corresponding diagnosis for above finding. <Karen Chadwick RN - Last Filed: 06/01/20 11:19>
[2020-06-01 11:41] LABS: Glucose Point of Care 143 (65-105)
--- NOTE | 2020-06-01 12:13 | PCPTNOTE ---
Spoke w/ Dr Michel regarding pt's decline in medical status and limited progress with therapy. Agreed w/ discharging therapy. Will DC PT.
[2020-06-01] MEDS: DAPTOmycin 500 MG in SODIUM CHLORIDE 0.9% IV 50 ML 100 MG IVPB (12:40)
--- NOTE | 2020-06-01 13:55 | PCDIET ---
Nutrition Follow-Up Complete: Inadequate oral intake related to poor appetite as evidenced by patient report and average meal consumption of 46% Patient to consume 75% or more of meals and supplements Goal: Goal not met. Continue goal. Pt current nutrition is DBCC+ Fabrice and Thrive BID. Nutrition recommendation: Agree Last recorded weight is 107.7 kg (down from assessed wt of 113.1kg) Bowel Motility: Daily BM Labs Reviewed: WBC 15.7 Meds Noted: Phenergen, B1, Melatonin, Insulin Additional Notes: Pt eating an average of 22% of meals over the last five meals. Daughter was helping him eat today. She states he typically can take a bite or two on his own and then she finishes by feeding him. She feels appetite is improving. Pt is getting Thrive and Fabrice BID to assist with increased kcal and protein needs. Recommend daily weights. We will continue to monitor wt and PO intake every 5 days.
--- NOTE | 2020-06-01 15:51 | PM.IMPN ---
Progress Note: A&P Assessment and Plan (1) Severe sepsis: Code(s): A41.9 - Sepsis, unspecified organism; R65.20 - Severe sepsis without septic shock Status: Acute Assessment and Plan: Severe sepsis with septicemia with MRSA. Present on admission with fever, tachycardia, metabolic encephalopathy and lactic acidosis. Thought due to UTI and/or pneumonia. Blood cultures and urine cultures all growing MRSA. Started on Rocephin and Doxycycline with Vanco added 05/14/20. Narrowed to Vanco with final ID. Lactic normalized. Repeat BCx still (+) from 05/16 and 05/20. EVELYN 05/18 showing no veg. Poor prognosis with persistent + BC. ID changed abx to Daptomycin 05/23/20. with BCx (05/25 and 05/28) still positive. No fevers but WBC now 15 K. Continue Daptomycin after discussion with ID.and will repeat BC 1-2 days and if negative proceed with PICC (2) Suicidal ideation: Code(s): R45.851 - Suicidal ideations Status: Acute Assessment and Plan: Alaina moved to ICU after expressing suicidal ideation. Patient has since denied this but he is confused at times so unclear if acurrate. Crisis evaluated the patient and he was cleared. (3) UTI (urinary tract infection) due to urinary indwelling Fernandez catheter: Qualifiers: Indwelling urinary catheter type: indwelling urethral catheter Encounter type: initial encounter Qualified Code(s): T83.511A - Infection and inflammatory reaction due to indwelling urethral catheter, initial encounter; N39.0 - Urinary tract infection, site not specified Code(s): T83.511A - Infection and inflammatory reaction due to indwelling urethral catheter, initial encounter; N39.0 - Urinary tract infection, site not specified Status: Acute Assessment and Plan: Patient had a UTI in March that grew out Klebsiella pneumonia that was sensitive to most antibiotics. He was recently treated for testicular infection by Dr. Paz and was started on Cipro 05/10/20. The patient's Fernandez catheter was changed while he was in the ER here. UCx growing Staph aureus so could be the source of the infection (or possibly hematologic spread given the low colony count). Continue current abx. (4) Pneumonia: Qualifiers: Laterality: bilateral Lung location: unspecified part of lung Pneumonia type: due to unspecified organism Qualified Code(s): J18.9 - Pneumonia, unspecified organism Code(s): J18.9 - Pneumonia, unspecified organism Status: Acute Assessment and Plan: CXR showing mild opacities in the left mid and lower lung zone suspected of being PNA. COVID test was negative. Started on Rocephin and doxycycline. BCx positive so Vanco added. Added nebs since COVID negative. CPT started. Still could be pulmonary edema given the BNP 2200. Lasix 40mg IV Q12h restarted 05/19 due to increased edema which has improved. Stopped IVF 05/15 and ceftriaxone 05/17. CXR 05/24 reviewed showing atelectasis. (5) Paroxysmal atrial fibrillation with rapid ventricular response: Code(s): I48.0 - Paroxysmal atrial fibrillation Status: Acute Assessment and Plan: No evidence that this is paroxysmal so suspect this is new onset related to the sepsis. Echo in March showing EF 70% with grade I diastolic dysfunction. He was started on Diltiazem 5mg/hour and transitioned to Amiodarone drip. Rate better 05/16 and transitioning to po and now rate control with beta rm only. Continue Eliquis. Lasix IV still to improve fluid status. (6) Altered mental status: Qualifiers: Altered mental status type: unspecified Qualified Code(s): R41.82 - Altered mental status, unspecified Code(s): R41.82 - Altered mental status, unspecified Status: Acute Assessment and Plan: Patient with toxic encephalopthy related to above. TSH okay. CT brain showing no acute findings. ABG 7.48//. Repeat CT brain 05/25 showing no change. Menta
[2020-06-01 17:07] LABS: Glucose Point of Care 445 (65-105)
[2020-06-01] MEDS: INSULIN ASPART (*BKC) 100 UNITS/ML 25 UNITS SUB-Q (17:15)
[2020-06-01] MEDS: MELATONIN 3 MG TABLET PO (21:11)
[2020-06-01] MEDS: INSULIN GLARGINE (*BKC) 100 UNITS/ML 20 UNITS SUB-Q (21:12)
[2020-06-01 22:01] LABS: Glucose Point of Care 322 (65-105)
[2020-06-02] VITALS (13 sets, daily range): BP systolic 86–122; BP diastolic 52–82; PULSE 55–116; RESP 18–50; TEMP 36.5–37.2; O2SAT 90–100
[2020-06-02] MEDS: FUROSEMIDE INJ 40 MG/4 ML VIAL IV PUSH ×3 (06:01→22:05)
[2020-06-02 07:05] LABS: Basophils Percent Auto 0.2 % (0.2-1.2); Eosinophils Absolute Auto 0.1 K/mm3 (0-0.3); Eosinophils Percent Auto 0.6 % (0-4.4); Hematocrit 29.8 % (42.0-52.0); Hemoglobin 10.2 g/dL (14.0-18.0); Immature Granulocyte Percent A 1.5 % (0-0.5); Lymphocytes Absolute Auto 1.05 K/mm3 (0.9-3.2); Lymphocytes Percent Auto 5.3 % (18.3-44.2); Mean Corpuscular HGB Conc 34.2 g/dl (32-36); Mean Corpuscular Volume 87.6 fl (80-100); Mean Platelet Volume 10.8 fl (7.4-10.4); Monocytes Absolute Auto 0.8 K/mm3 (0.1-0.6); Monocytes Percent Auto 4.2 % (2.6-8.5); Neutrophils Absolute Auto 17.5 K/mm3 (1.3-6.7); Neutrophils Percent Auto 88.2 % (45.5-73.1); Platelet Count Result 251 k/mm3 (150-375); Red Cell Distribution Width 14.9 % (11.5-14.5); White Blood Count 19.9 K/mm3 (4.5-10.0)
[2020-06-02 07:56] LABS: Alanine Aminotransferase 41 U/L (4-50); Albumin Level 2.5 g/dL (3.5-5.1); Alkaline Phosphatase 95 U/L (38-126); Anion Gap 11 mmol/L (8-16); Aspartate Amino Transferase 41 U/L (17-59); Blood Urea Nitrogen 34 mg/dL (9-20); Carbon Dioxide 23 mmol/L (22-30); Chloride 102 mmol/L (98-107); Estimated CRCL calculation 112 ml/min; Estimated Glomerular Filt Rate > 60; Glucose 112 mg/dL (75-110); Potassium 3.5 mmol/L (3.4-5.0); Sodium 136 mmol/L (137-145)
[2020-06-02 08:07] LABS: Glucose Point of Care 113 (65-105)
[2020-06-02] MEDS: APIXABAN 5 MG TABLET PO ×2 (11:11→22:05)
[2020-06-02] MEDS: ESCITALOPRAM OXALATE 10 MG TABLET PO (11:11)
[2020-06-02] MEDS: DEXAMETHASONE 2 MG TABLET PO (11:11)
[2020-06-02] MEDS: POTASSIUM CHLORIDE 20 MEQ TABLET 40 MEQ PO (11:12)
[2020-06-02] MEDS: COLLAGENASE OINT 30 GM TUBE 1 APPLIC TOPICAL (11:12)
[2020-06-02] MEDS: THIAMINE HCL 100 MG TABLET PO (11:12)
[2020-06-02] MEDS: DAPTOmycin 500 MG in SODIUM CHLORIDE 0.9% IV 50 ML 100 MG IVPB (11:12)
[2020-06-02] MEDS: INSULIN GLARGINE (*BKC) 100 UNITS/ML SUB-Q (11:14)
[2020-06-02 11:35] LABS: Glucose Point of Care 133 (65-105)
[2020-06-02 16:24] LABS: Glucose Point of Care 179 (65-105)
--- NOTE | 2020-06-02 16:43 | PM.IMPN ---
Progress Note: A&P Assessment and Plan (1) Severe sepsis: Code(s): A41.9 - Sepsis, unspecified organism; R65.20 - Severe sepsis without septic shock Status: Acute Assessment and Plan: Severe sepsis with septicemia with MRSA. Present on admission with fever, tachycardia, metabolic encephalopathy and lactic acidosis. Thought due to UTI and/or pneumonia. Blood cultures and urine cultures all growing MRSA. Started on Rocephin and Doxycycline with Vanco added 05/14/20. Narrowed to Vanco with final ID. Lactic normalized. Repeat BCx still (+) from 05/16 and 05/20. EVELYN 05/18 showing no veg. Poor prognosis with persistent + BC. ID changed abx to Daptomycin 05/23/20. with BCx (05/25 and 05/28) still positive. No fevers but WBC now 15 K. Continue Daptomycin after discussion with ID.and will repeat BC 06/03 and if negative proceed with PICC (2) Suicidal ideation: Code(s): R45.851 - Suicidal ideations Status: Acute Assessment and Plan: Alaina moved to ICU after expressing suicidal ideation. Patient has since denied this but he is confused at times so unclear if acurrate. Crisis evaluated the patient and he was cleared. (3) UTI (urinary tract infection) due to urinary indwelling Fernandez catheter: Qualifiers: Indwelling urinary catheter type: indwelling urethral catheter Encounter type: initial encounter Qualified Code(s): T83.511A - Infection and inflammatory reaction due to indwelling urethral catheter, initial encounter; N39.0 - Urinary tract infection, site not specified Code(s): T83.511A - Infection and inflammatory reaction due to indwelling urethral catheter, initial encounter; N39.0 - Urinary tract infection, site not specified Status: Acute Assessment and Plan: Patient had a UTI in March that grew out Klebsiella pneumonia that was sensitive to most antibiotics. He was recently treated for testicular infection by Dr. Paz and was started on Cipro 05/10/20. The patient's Fernandez catheter was changed while he was in the ER here. UCx growing Staph aureus so could be the source of the infection (or possibly hematologic spread given the low colony count). Continue current abx. (4) Pneumonia: Qualifiers: Laterality: bilateral Lung location: unspecified part of lung Pneumonia type: due to unspecified organism Qualified Code(s): J18.9 - Pneumonia, unspecified organism Code(s): J18.9 - Pneumonia, unspecified organism Status: Acute Assessment and Plan: CXR showing mild opacities in the left mid and lower lung zone suspected of being PNA. COVID test was negative. Started on Rocephin and doxycycline. BCx positive so Vanco added. Added nebs since COVID negative. CPT started. Still could be pulmonary edema given the BNP 2200. Lasix 40mg IV Q12h restarted 05/19 due to increased edema which has improved. Stopped IVF 05/15 and ceftriaxone 05/17. CXR 05/24 reviewed showing atelectasis. re check am with abg now (5) Paroxysmal atrial fibrillation with rapid ventricular response: Code(s): I48.0 - Paroxysmal atrial fibrillation Status: Acute Assessment and Plan: No evidence that this is paroxysmal so suspect this is new onset related to the sepsis. Echo in March showing EF 70% with grade I diastolic dysfunction. He was started on Diltiazem 5mg/hour and transitioned to Amiodarone drip. Rate better 05/16 and transitioning to po and now rate control with beta rm only. Continue Eliquis. Lasix IV still to improve fluid status. (6) Altered mental status: Qualifiers: Altered mental status type: unspecified Qualified Code(s): R41.82 - Altered mental status, unspecified Code(s): R41.82 - Altered mental status, unspecified Status: Acute Assessment and Plan: Patient with toxic encephalopthy related to above. TSH okay. CT brain showing no acute findings. ABG 7.48/. Repeat CT brain 05/25 prem
[2020-06-02 17:53] LABS: Alveolar/Arterial O2 Gradient 51.4 mmHg; Base Excess ABG 2.4 mEq/l (+/-2.0); Fractional Inspired Oxygen 21 %; HCO3 ABG 23.5 mEq/l (22.0-26.0); Oxygen Saturation ABG 95.8 % (95.0-100.0); Oxyhemoglobin 91.6 % THb (90.0-100.0); PCO2 ABG 26.3 mmHg (35.0-45.0); PO2 ABG 66.8 mmHg (80.0-100.0); PO2 FiO2 Ratio Arterial Blood 3.18 %; Total Hemoglobin 11.6 g/dL (12.0-18.0)
[2020-06-02 17:54] LABS: Site Drawn RIGHT BRACHIAL; pH ABG 7.569 (7.350-7.450)
[2020-06-02 17:55] LABS: Device OTHER DEVICE; Modified Allen's Test Pass
--- NOTE | 2020-06-02 18:37 | WPDINFPN2 ---
Progress Note: A&P Additional Plan 1. 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 King was negative for endovascular infection. Due to his persistent bacteremia highly suspicious for endovascular infection. Currently on daptomycin with last blood culture from 05/28/2020 continues to be positive. Patient is currently on daptomycin day 10. Total antibiotics day number 19. Persistent bacteremia may consider adding ceftaroline for synergy. Overall prognosis in this patient is poor. As per nurses family are contemplating about hospice care. Prognosis in this patient is extremely poor. Hospice care would be reasonable for this patient. Subjective Date/time seen: 06/02/20 18:37 Exam Neck: Other: Neck is supple. Resp: Other: Poor inspiratory effort noted on wheeze Cardio: Other: positive S1 and pelvis to no murmur GI: Other: nontender no organomegaly. Skin: Other: No rash. Neuro: Other: Lethargic. Objective Data Vital Signs Vital Signs: Vital Signs - 24 hr 06/01/20 20:02 06/01/20 20:11 06/01/20 21:09 Temperature 36.9 C Pulse Rate 89 86 80 Respiratory Rate 20 20 16 Blood Pressure 123/58 L Pulse Oximetry 100 06/01/20 21:12 06/02/20 06:00 06/02/20 07:48 Temperature 37.2 C Pulse Rate 80 116 H 83 Respiratory Rate 18 20 Blood Pressure 122/82 Pulse Oximetry 96 06/02/20 08:00 06/02/20 11:27 06/02/20 14:00 Temperature 36.6 C Pulse Rate 84 56 L 72 Respiratory Rate 20 28 H Blood Pressure 118/56 L Pulse Oximetry 90 06/02/20 14:10 06/02/20 14:17 06/02/20 17:43 Temperature Pulse Rate 85 85 68 Respiratory Rate 20 20 50 H Blood Pressure 108/79 Pulse Oximetry 100 Intake/Output Intake/Output: Intake & Output 05/30/20 05/31/20 06/01/20 06/02/20 23:59 23:59 23:59 23:59 Intake Total 431 664 1461 470 Output Total 1450 1200 2375 1800 Balance -1030 -405 965 -1330 Meds/Results Medications: Active Medications Generic Name Dose Route Start Last Admin Trade Name Freq PRN Reason Stop Dose Admin Acetaminophen 650 mg 05/19/20 11:43 05/31/20 20:46 Tylenol Tablet PO 650 mg Q6H PRN Administration Mild Pain (1-3) or Fever Apixaban 5 mg 05/18/20 23:00 06/02/20 11:11 Eliquis PO 5 mg Q12HR STALIN Administration Collagenase 1 applic 05/15/20 09:00 06/02/20 11:12 Santyl Oint TOPICAL 1 applic DAILY STALIN Administration Dexamethasone 2 mg 05/28/20 08:00 06/02/20 11:11 Dexamethasone Po PO 2 mg DAILY@0800 [facility] Administration Dextrose 12.5 gm 05/14/20 00:48 Dextrose 50% Syringe IV PUSH PRN PRN Hypoglycemia Protocol Escitalopram Oxalate 10 mg 05/21/20 09:00 06/02/20 11:11 Lexapro PO 10 mg DAILY STALIN Administration Furosemide 40 mg 05/28/20 14:00 06/02/20 14:35 Lasix Inj IV PUSH 40 mg Q8HR STALIN Administration Glucagon 1 mg 05/14/20 00:48 Glucagon For Inj IM PRN PRN Hypoglycemia Protocol Glucose 15 gm 05/14/20 00:48 Glutose 15 PO PRN PRN Hypoglycemia Protocol Dextrose 1,000 mls @ 100 mls/hr 05/14/20 00:48 Dextrose 5% 1,000 Ml IVPB PRN PRN Hypoglycemia Protocol Daptomycin 500 mg/ Sodium 50 mls @ 100 mls/hr 05/23/20 12:35 06/02/20 11:42 Chloride IVPB Infused NOON [facility] Infusion Insulin Aspart 3 - 6 units 05/14/20 08:00 06/02/20 16:25 Novolog SUB-Q Not Given TIDWM [facility] Protocol Insulin Glargine 25 units 06/02/20 21:00 Lantus SUB-Q HS [facility] Levalbuterol HCl 1.25 mg 05/26/20 08:00 06/02/20 14:08 Xopenex 1.25 Mg/0.5 Ml INHALATION 1.25 mg [id number] [facility] Administration Melatonin 3 mg 05/22/20 21:00 06/01/20 21:11 Melatonin PO 3 mg HS [facility] Administration Metoprolol Tartrate 50 mg 05/30/20 21:00 06/02/20 11:27 Lopressor PO Not Given Q12HR [facility] Miconazole Nitrate 1 applic 05/15/20 09:00 06/02/20 11:12 Aloe [place] TOPICAL 1 applic Q12H
[2020-06-02 21:48] LABS: Glucose Point of Care 181 (65-105)
[2020-06-02] MEDS: METOPROLOL TARTRATE 50 MG TAB PO (22:06)
[2020-06-02] MEDS: MELATONIN 3 MG TABLET PO (22:06)
[2020-06-02] MEDS: INSULIN GLARGINE (*BKC) 100 UNITS/ML 25 UNITS SUB-Q (22:21)
[2020-06-03] VITALS (14 sets, daily range): BP systolic 90–96; BP diastolic 38–60; PULSE 57–101; RESP 18–42; TEMP 36.6–37.1; O2SAT 90–100
[2020-06-03 02:55] LABS: Alveolar/Arterial O2 Gradient 58.8 mmHg; Base Excess ABG 4.6 mEq/l (+/-2.0); Fractional Inspired Oxygen 21 %; HCO3 ABG 25.1 mEq/l (22.0-26.0); Oxygen Content ABG 14.3 %vol (16.0-22.0); Oxygen Saturation ABG 95.4 % (95.0-100.0); Oxyhemoglobin 91.7 % THb (90.0-100.0); PCO2 ABG 24.9 mmHg (35.0-45.0); PO2 ABG 61.1 mmHg (80.0-100.0); PO2 FiO2 Ratio Arterial Blood 2.91 %; Total Hemoglobin 11.1 g/dL (12.0-18.0); pH ABG 7.621 (7.350-7.450)
[2020-06-03 02:56] LABS: Device ROOM AIR; Site Drawn RIGHT BRACHIAL
[2020-06-03] MEDS: diphenhydrAMINE HCl INJ 50 MG/ML VIAL 25 MG IV PUSH (03:10)
[2020-06-03] MEDS: FUROSEMIDE INJ 40 MG/4 ML VIAL IV PUSH ×2 (05:49→13:50)
[2020-06-03 06:19] LABS: Basophils Percent Auto 0.1 % (0.2-1.2); Hematocrit 30.1 % (42.0-52.0); Immature Granulocyte Percent A 1.2 % (0-0.5); Lymphocytes Absolute Auto 0.82 K/mm3 (0.9-3.2); Lymphocytes Percent Auto 3.4 % (18.3-44.2); Mean Corpuscular HGB Conc 33.2 g/dl (32-36); Mean Corpuscular Hemoglobin 29.5 pg (26-34); Mean Corpuscular Volume 88.8 fl (80-100); Mean Platelet Volume 10.8 fl (7.4-10.4); Monocytes Absolute Auto 0.6 K/mm3 (0.1-0.6); Monocytes Percent Auto 2.5 % (2.6-8.5); Neutrophils Absolute Auto 22.5 K/mm3 (1.3-6.7); Neutrophils Percent Auto 92.8 % (45.5-73.1); Nucleated Red Blood Cells Perc 0.1 % (0.0-0.2); Platelet Count Result 213 k/mm3 (150-375); Red Blood Count 3.39 M/mm3 (4.6-6.20); Red Cell Distribution Width 15.5 % (11.5-14.5); White Blood Count 24.3 K/mm3 (4.5-10.0)
[2020-06-03 06:43] LABS: Anion Gap 10 mmol/L (8-16); Blood Urea Nitrogen 47 mg/dL (9-20); Calcium 7.8 mg/dL (8.4-10.2); Carbon Dioxide 26 mmol/L (22-30); Chloride 100 mmol/L (98-107); Estimated CRCL calculation 47 ml/min; Estimated Glomerular Filt Rate 45; Glucose 176 mg/dL (75-110); Potassium 3.2 mmol/L (3.4-5.0); Sodium 136 mmol/L (137-145)
[2020-06-03 07:55] LABS: Glucose Point of Care 170 (65-105)
[2020-06-03] MEDS: COLLAGENASE OINT 30 GM TUBE 1 APPLIC TOPICAL (09:05)
[2020-06-03 11:58] LABS: Glucose Point of Care 177 (65-105)
[2020-06-03] MEDS: DAPTOmycin 500 MG in SODIUM CHLORIDE 0.9% IV 50 ML 100 MG IVPB ×2 (12:16→12:17)
--- NOTE | 2020-06-03 15:46 | PM.IMPN ---
Progress Note: A&P Assessment and Plan (1) Severe sepsis: Code(s): A41.9 - Sepsis, unspecified organism; R65.20 - Severe sepsis without septic shock Status: Acute Assessment and Plan: Severe sepsis with septicemia with MRSA. Present on admission with fever, tachycardia, metabolic encephalopathy and lactic acidosis. Thought due to UTI and/or pneumonia. Blood cultures and urine cultures all growing MRSA. Started on Rocephin and Doxycycline with Vanco added 05/14/20. Narrowed to Vanco with final ID. Lactic normalized. Repeat BCx still (+) from 05/16 and 05/20. EVELYN 05/18 showing no veg. Poor prognosis with persistent + BC. ID changed abx to Daptomycin 05/23/20. with BCx (05/25 and 05/28) still positive. No fevers but WBC now 24 K. Continue Daptomycin after discussion with ID.and will repeat BC drawn today , family strongly considering hospice prognosis very guarded and family aware (2) Suicidal ideation: Code(s): R45.851 - Suicidal ideations Status: Acute Assessment and Plan: Alaina moved to ICU after expressing suicidal ideation. Patient has since denied this but he is confused at times so unclear if acurrate. Crisis evaluated the patient and he was cleared. (3) UTI (urinary tract infection) due to urinary indwelling Fernandez catheter: Qualifiers: Indwelling urinary catheter type: indwelling urethral catheter Encounter type: initial encounter Qualified Code(s): T83.511A - Infection and inflammatory reaction due to indwelling urethral catheter, initial encounter; N39.0 - Urinary tract infection, site not specified Code(s): T83.511A - Infection and inflammatory reaction due to indwelling urethral catheter, initial encounter; N39.0 - Urinary tract infection, site not specified Status: Acute Assessment and Plan: Patient had a UTI in March that grew out Klebsiella pneumonia that was sensitive to most antibiotics. He was recently treated for testicular infection by Dr. Paz and was started on Cipro 05/10/20. The patient's Fernandez catheter was changed while he was in the ER here. UCx growing Staph aureus so could be the source of the infection (or possibly hematologic spread given the low colony count). Continue current abx. (4) Pneumonia: Qualifiers: Laterality: bilateral Lung location: unspecified part of lung Pneumonia type: due to unspecified organism Qualified Code(s): J18.9 - Pneumonia, unspecified organism Code(s): J18.9 - Pneumonia, unspecified organism Status: Acute Assessment and Plan: CXR showing mild opacities in the left mid and lower lung zone suspected of being PNA. COVID test was negative. Started on Rocephin and doxycycline. BCx positive so Vanco added. Added nebs since COVID negative. CPT started. Still could be pulmonary edema given the BNP 2200. Lasix 40mg IV Q12h restarted 05/19 due to increased edema which has improved. Stopped IVF 05/15 and ceftriaxone 05/17. CXR 05/24 reviewed showing atelectasis. and repeat 06/02 no change (5) Paroxysmal atrial fibrillation with rapid ventricular response: Code(s): I48.0 - Paroxysmal atrial fibrillation Status: Acute Assessment and Plan: No evidence that this is paroxysmal so suspect this is new onset related to the sepsis. Echo in March showing EF 70% with grade I diastolic dysfunction. He was started on Diltiazem 5mg/hour and transitioned to Amiodarone drip. Rate better 05/16 and transitioning to po and now rate control with beta rm only. Continue Eliquis. Lasix IV still to improve fluid status. Beta rm IV with poor po status (6) Altered mental status: Qualifiers: Altered mental status type: unspecified Qualified Code(s): R41.82 - Altered mental status, unspecified Code(s): R41.82 - Altered mental status, unspecified Status: Acute Assessment and Plan: Patient with toxic encephalopthy related to above.
[2020-06-03 16:21] LABS: Glucose Point of Care 159 (65-105)
[2020-06-03] MEDS: SODIUM CHLORIDE 0.9% IV 500 ML IV CONT (18:42)
[2020-06-03] MEDS: SODIUM CHLORIDE 0.9% IV 1,000 ML 100 ML IV CONT (19:38)
[2020-06-03 21:12] LABS: Glucose Point of Care 138 (65-105)
[2020-06-04] VITALS (15 sets, daily range): BP systolic 82–148; BP diastolic 40–51; PULSE 52–93; RESP 18–38; TEMP 36.2–37; O2SAT 89–100
[2020-06-04] MEDS: SODIUM CHLORIDE 0.9% IV 1,000 ML 100 ML IV CONT ×2 (05:38→17:06)
[2020-06-04 05:45] LABS: Glucose Point of Care 137 (65-105)
[2020-06-04 06:17] LABS: Basophils Percent Auto 0.1 % (0.2-1.2); Eosinophils Percent Auto 0.1 % (0-4.4); Hematocrit 28.4 % (42.0-52.0); Hemoglobin 9.2 g/dL (14.0-18.0); Immature Granulocyte Percent A 1.8 % (0-0.5); Lymphocytes Absolute Auto 0.61 K/mm3 (0.9-3.2); Lymphocytes Percent Auto 3.6 % (18.3-44.2); Mean Corpuscular HGB Conc 32.4 g/dl (32-36); Mean Corpuscular Volume 89.6 fl (80-100); Mean Platelet Volume 11.4 fl (7.4-10.4); Monocytes Absolute Auto 0.5 K/mm3 (0.1-0.6); Neutrophils Absolute Auto 15.5 K/mm3 (1.3-6.7); Neutrophils Percent Auto 91.4 % (45.5-73.1); Platelet Count Result 117 k/mm3 (150-375); Red Blood Count 3.17 M/mm3 (4.6-6.20); Red Cell Distribution Width 15.5 % (11.5-14.5); White Blood Count 16.9 K/mm3 (4.5-10.0)
[2020-06-04 06:47] LABS: Anion Gap 8 mmol/L (8-16); Blood Urea Nitrogen 64 mg/dL (9-20); Carbon Dioxide 27 mmol/L (22-30); Chloride 101 mmol/L (98-107); Estimated CRCL calculation 33 ml/min; Estimated Glomerular Filt Rate 29; Glucose 137 mg/dL (75-110); Potassium 3.6 mmol/L (3.4-5.0); Sodium 136 mmol/L (137-145)
[2020-06-04 08:45] LABS: Glucose Point of Care 121 (65-105)
[2020-06-04] MEDS: DEXAMETHASONE SOD PHOS INJ 4 MG/ML VIAL 2 MG IV PUSH (10:59)
[2020-06-04] MEDS: COLLAGENASE OINT 30 GM TUBE 1 APPLIC TOPICAL (10:59)
[2020-06-04 12:31] LABS: Glucose Point of Care 138 (65-105)
--- NOTE | 2020-06-04 14:51 | PM.IMPN ---
Progress Note: A&P Assessment and Plan (1) Severe sepsis: Code(s): A41.9 - Sepsis, unspecified organism; R65.20 - Severe sepsis without septic shock Status: Acute Assessment and Plan: Severe sepsis with septicemia with MRSA. Present on admission with fever, tachycardia, metabolic encephalopathy and lactic acidosis. Thought due to UTI and/or pneumonia. Blood cultures and urine cultures all growing MRSA. Started on Rocephin and Doxycycline with Vanco added 05/14/20. Narrowed to Vanco with final ID. Lactic normalized. Repeat BCx still (+) from 05/16 and 05/20. EVELYN 05/18 showing no veg. Poor prognosis with persistent + BC. ID changed abx to Daptomycin 05/23/20. with BCx (05/25 , 05/28,06/03) still positive. No fevers but WBC now 16 K. Continue Daptomycin after discussion with ID , family strongly considering hospice prognosis very guarded and family aware (2) Suicidal ideation: Code(s): R45.851 - Suicidal ideations Status: Acute Assessment and Plan: Alaina moved to ICU after expressing suicidal ideation. Patient has since denied this but he is confused at times so unclear if acurrate. Crisis evaluated the patient and he was cleared. (3) UTI (urinary tract infection) due to urinary indwelling Fernandez catheter: Qualifiers: Indwelling urinary catheter type: indwelling urethral catheter Encounter type: initial encounter Qualified Code(s): T83.511A - Infection and inflammatory reaction due to indwelling urethral catheter, initial encounter; N39.0 - Urinary tract infection, site not specified Code(s): T83.511A - Infection and inflammatory reaction due to indwelling urethral catheter, initial encounter; N39.0 - Urinary tract infection, site not specified Status: Acute Assessment and Plan: Patient had a UTI in March that grew out Klebsiella pneumonia that was sensitive to most antibiotics. He was recently treated for testicular infection by Dr. Paz and was started on Cipro 05/10/20. The patient's Fernandez catheter was changed while he was in the ER here. UCx growing Staph aureus so could be the source of the infection (or possibly hematologic spread given the low colony count). Continue current abx. (4) Pneumonia: Qualifiers: Laterality: bilateral Lung location: unspecified part of lung Pneumonia type: due to unspecified organism Qualified Code(s): J18.9 - Pneumonia, unspecified organism Code(s): J18.9 - Pneumonia, unspecified organism Status: Acute Assessment and Plan: CXR showing mild opacities in the left mid and lower lung zone suspected of being PNA. COVID test was negative. Started on Rocephin and doxycycline. BCx positive so Vanco added. Added nebs since COVID negative. CPT started. Still could be pulmonary edema given the BNP 2200. Lasix 40mg IV Q12h restarted 05/19 due to increased edema which has improved. Stopped IVF 05/15 and ceftriaxone 05/17. CXR 05/24 reviewed showing atelectasis. and repeat 06/02 no change (5) Paroxysmal atrial fibrillation with rapid ventricular response: Code(s): I48.0 - Paroxysmal atrial fibrillation Status: Acute Assessment and Plan: No evidence that this is paroxysmal so suspect this is new onset related to the sepsis. Echo in March showing EF 70% with grade I diastolic dysfunction. He was started on Diltiazem 5mg/hour and transitioned to Amiodarone drip. Rate better 05/16 and transitioning to po and now rate control with beta rm only. Continue Eliquis. Lasix IV still to improve fluid status. as pressure allows Beta rm IV with poor po status if pulse and bp allows (6) Altered mental status: Qualifiers: Altered mental status type: unspecified Qualified Code(s): R41.82 - Altered mental status, unspecified Code(s): R41.82 - Altered mental status, unspecified Status: Acute Assessment and Plan: Patient with toxic encephalopthy relat
[2020-06-04] MEDS: DAPTOmycin 500 MG in SODIUM CHLORIDE 0.9% IV 50 ML 100 MG IVPB (15:33)
[2020-06-04 16:35] LABS: Glucose Point of Care 155 (65-105)
[2020-06-04 21:25] LABS: Glucose Point of Care 143 (65-105)
[2020-06-05] MEDS: SODIUM CHLORIDE 0.9% IV 1,000 ML 100 ML IV CONT (03:23)
[2020-06-05 05:00] VITALS: BP 81/50; PULSE 78; RESP 30; TEMP 36.5
[2020-06-05 07:29] LABS: Glucose Point of Care 150 (65-105)
[2020-06-05 08:47] LABS: Basophils Absolute Auto 0.1 K/mm3 (0.0-0.1); Basophils Percent Auto 0.3 % (0.2-1.2); Hematocrit 28.3 % (42.0-52.0); Hemoglobin 9.5 g/dL (14.0-18.0); Immature Granulocyte Absolute 0.11 K/mm3 (0.00-0.031); Immature Granulocyte Percent A 0.6 % (0-0.5); Immature Platelet Fraction Pct 8.2 % (0.9-11.2); Lymphocytes Absolute Auto 0.38 K/mm3 (0.9-3.2); Lymphocytes Percent Auto 2.1 % (18.3-44.2); Mean Corpuscular HGB Conc 33.6 g/dl (32-36); Mean Corpuscular Hemoglobin 29.8 pg (26-34); Mean Corpuscular Volume 88.7 fl (80-100); Mean Platelet Volume 13.4 fl (7.4-10.4); Monocytes Absolute Auto 0.3 K/mm3 (0.1-0.6); Monocytes Percent Auto 1.9 % (2.6-8.5); Neutrophils Absolute Auto 16.9 K/mm3 (1.3-6.7); Neutrophils Percent Auto 95.1 % (45.5-73.1); Platelet Count Result 57 k/mm3 (150-375); Red Blood Count 3.19 M/mm3 (4.6-6.20); Red Cell Distribution Width 15.4 % (11.5-14.5); White Blood Count 17.8 K/mm3 (4.5-10.0)
[2020-06-05 09:01] LABS: Anion Gap 10 mmol/L (8-16); Blood Urea Nitrogen 86 mg/dL (9-20); Calcium 6.8 mg/dL (8.4-10.2); Carbon Dioxide 21 mmol/L (22-30); Chloride 105 mmol/L (98-107); Estimated CRCL calculation 34 ml/min; Estimated Glomerular Filt Rate 31; Glucose 166 mg/dL (75-110); Potassium 3.6 mmol/L (3.4-5.0); Sodium 136 mmol/L (137-145)
[2020-06-05 09:14] LABS: Ovalocytes 2+ (NORMAL); Platelet Estimate Decreased (Adequate)
[2020-06-05] MEDS: COLLAGENASE OINT 30 GM TUBE 1 APPLIC TOPICAL (09:14)
[2020-06-05] MEDS: DEXAMETHASONE SOD PHOS INJ 4 MG/ML VIAL 2 MG IV PUSH (09:14)
[2020-06-05 09:15] VITALS: RESP 32; O2SAT 91
[2020-06-05] MEDS: APIXABAN 5 MG TABLET PO (09:15)
[2020-06-05 09:55] VITALS: O2SAT 86
[2020-06-05 09:57] VITALS: PULSE 80; RESP 32
[2020-06-05 09:59] VITALS: O2SAT 91
[2020-06-05 10:04] VITALS: PULSE 84; RESP 40
--- NOTE | 2020-06-06 06:38 | WPDCDIQUERY2 ---
CDI Query Clarification Request - You have documented, MR revealed multiple small acute infarcts. Could even be embolic - Coders cannot code from MR results If you concur with MR findings of multiple small acute infarcts, please document as a diagnosis.
--- NOTE | 2020-06-08 11:33 | PM.DDS ---
Discharge Sum: Prov Provider Primary care physician: Nirav Villalobos, Admitting provider: Natasha Benson DO Consults: 05/14/20 Wound/ET Consult Routine Reason for Consult:: macerated buttocks 05/14/20 06:29 Consult to Physician Routine Comment: Consulting Provider: Amee Fenton call center support consultant/MD group to consult: [facility] Reason for consultation: AFib RVR Has provider been notified: Yes 05/16/20 Consult to Physician Routine Comment: DR. PAINTER BRIDGES Consulting Provider: Luis Alberto Suarez call center support consultant/ group to consult: Dr Suarez Reason for consultation: prosthetic valve with MRSA bacteremia Has provider been notified: Yes 05/20/20 Care Coordination Consult Routine Comment: patient requested assisted suicide Reason for Consult:: Crisis Intervention Discharge Sum: Diag Contributing Factors (1) Severe sepsis: (2) UTI (urinary tract infection) due to urinary indwelling Fernandez catheter: (3) Pneumonia: (4) Paroxysmal atrial fibrillation with rapid ventricular response: (5) Altered mental status: (6) History of aortic valve replacement with bioprosthetic valve: (7) QT prolongation: (8) Neurogenic bladder: (9) Wound of lower extremity: (10) Type 2 diabetes mellitus: (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 Blood cultures returned MRSA positive and despite treatment with vancomycin with therapeutic blood levels his blood cultures remained positive. EVELYN was negative for vegetation or signs of SBE. he was changed to daptomycin but after week of that treatment on 06/03/20 blood cultures were still positive and he was displaying more signs of sepsis with rising WBC, lower blood pressure, and tachypnea. Family did meet with hospice and decided on a DNR status. The morning he was to be discharged home on hospice he . Additional Data Attending physician: Benny Michel MD
== END 2020-06-05 12:25 | disposition expired | DRG 698 ==
LOC: ANHED 23:07 → ANH3MEDSUR 05-14 00:19 → ANHICU 05-14 07:42 → ANHIMU 05-15 15:13 → ANH2MED 05-19 08:44 → ANHICU 05-22 14:50 → ANH3MED 05-29 21:50 → ANH2MED 06-06 09:06 → ANH3MED 06-06 09:06 → ANH3MEDSUR 06-06 09:06 → ANHICU 06-06 09:06 → ANHIMU 06-06 09:06
PROVIDERS: Family Medicine; Internal Medicine; Internal Medicine Cardiovascular Disease; Physician Assistant; Admitting Provider Internal Medicine; Emergency Provider Emergency Medicine; PCP Internal Medicine; Visit Provider Internal Medicine
PROC: B24BZZ4 Ultrasonography of Heart with Aorta, Transesophageal (ICD-10-PCS; CPT 93312; principal; 2020-05-18 11:30)
DX: T83.511A Infection and inflammatory reaction due to indwelling urethral catheter, initial encounter (principal); A41.02 Sepsis due to Methicillin resistant Staphylococcus aureus; J18.9 Pneumonia, unspecified organism; R65.20 Severe sepsis without septic shock; G37.3 Acute transverse myelitis in demyelinating disease of central nervous system; R45.851 Suicidal ideations; N31.8 Other neuromuscular dysfunction of bladder; N39.0 Urinary tract infection, site not specified; S81.809A Unspecified open wound, unspecified lower leg, initial encounter; I48.0 Paroxysmal atrial fibrillation; Z20.828 Contact with and (suspected) exposure to other viral communicable diseases; R41.82 Altered mental status, unspecified; E11.42 Type 2 diabetes mellitus with diabetic polyneuropathy; I10 Essential (primary) hypertension; R94.31 Abnormal electrocardiogram [ECG] [EKG]; I25.10 Atherosclerotic heart disease of native coronary artery without angina pectoris; E78.5 Hyperlipidemia, unspecified; Z79.84 Long term (current) use of oral hypoglycemic drugs; Z79.899 Other long term (current) drug therapy; Z95.3 Presence of xenogenic heart valve; Z98.49 Cataract extraction status, unspecified eye
CPT/HCPCS: 36415; 36600; 51703; 70450; 70553; 71045; 74018; 74019; 80048; 80053; 80069; 80202; 81001; 82140; 82565; 82607; 82728; 82746; 82805; 83605; 83615; 83735; 84100; 85025; 85055; 85380; 86140; 87040; 87077; 87086; 87088; 87147; 87186; 87635; 92610; 93005; 93312; 93320; 93325; 93923; 94640; 94668; 96365; 96375; 97110; 97162; 97167; 97530; 97535; 99291; A9270; A9577; C9803; J0131; J0282; J0456; J0696; J0878; J1100; J1200; J1644; J1650; J1720; J1815; J1885; J1940; J2060; J2704; J3370; J3475; J3480; J7030; J7040; J8540; U0003